=== PATIENT | male | born 1980 | race Caucasian/White ===

== ENCOUNTER 2021-01-05 14:44 | Emergency (ER) | payer OTHER, SELFPAY ==
--- NOTE | ~2021-01-05 | XR_ITS ---
EXAMINATION:XR ankle RT min 3V, XR foot RT min 3V VIEWS ACQUIRED: Frontal lateral and oblique right foot, frontal and lateral ankle. CLINICAL INFORMATION: Reason for Exam PAIN/SWELLING AFTER TWISTING COMPARISON: None available at the time of this dictation. FINDINGS: There is mildly displaced fracture of the medial malleolus, the fracture is horizontal suggesting an avulsion fracture. There are radiolucencies of the head of the second, third fourth and fifth metatarsal raises concern for possible inflammatory including possible rheumatoid arthritis. There is hallux valgus and developing bunion. No significant calcaneal spurs. XR/XR ankle RT min 3V IMPRESSION: 1. Avulsion fracture medial malleolus. 2. Hallux valgus, developing bunion. 3. There are marginal erosions of the head of the second through fifth metatarsal raise concern for possible underlying inflammatory arthritis including rheumatoid. Please correlate clinically.
--- NOTE | ~2021-01-05 | XR_ITS ---
EXAMINATION:XR ankle RT min 3V, XR foot RT min 3V VIEWS ACQUIRED: Frontal lateral and oblique right foot, frontal and lateral ankle. CLINICAL INFORMATION: Reason for Exam PAIN/SWELLING AFTER TWISTING COMPARISON: None available at the time of this dictation. FINDINGS: There is mildly displaced fracture of the medial malleolus, the fracture is horizontal suggesting an avulsion fracture. There are radiolucencies of the head of the second, third fourth and fifth metatarsal raises concern for possible inflammatory including possible rheumatoid arthritis. There is hallux valgus and developing bunion. No significant calcaneal spurs. XR/XR foot RT min 3V IMPRESSION: 1. Avulsion fracture medial malleolus. 2. Hallux valgus, developing bunion. 3. There are marginal erosions of the head of the second through fifth metatarsal raise concern for possible underlying inflammatory arthritis including rheumatoid. Please correlate clinically.
[2021-01-05 14:50] VITALS: BP 181/116; PULSE 113; RESP 18; TEMP 36.5; O2SAT 99; BMI 34.0
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
== END 2021-01-05 15:56 | disposition home or self-care (01) ==
PROVIDERS: Emergency Provider Emergency Medicine
DX: S82.51XA Displaced fracture of medial malleolus of right tibia, initial encounter for closed fracture (principal); V86.79XA Person on outside of other special all-terrain or other off-road motor vehicles injured in nontraffic accident, initial encounter; I10 Essential (primary) hypertension; Y93.89 Activity, other specified; Y92.39 Other specified sports and athletic area as the place of occurrence of the external cause; Y99.0 Civilian activity done for income or pay
CPT/HCPCS: 73610; 73630; 99283

== ENCOUNTER → 2021-01-09 13:20 | Outpatient (BNVA) | payer OTHER, SELFPAY | PROVIDERS: Visit Provider Physician Assistant ==

== ENCOUNTER 2023-03-06 08:11 | Inpatient (IN) | payer OTHER, SELFPAY ==
[2023-03-06] VITALS (10 sets, daily range): BP systolic 83–113; BP diastolic 42–60; PULSE 91–117; RESP 16–24; TEMP 36.9–37.7; O2SAT 97–100; BMI 36.2; BMI 32.4
--- NOTE | ~2023-03-06 | CT_ITS ---
EXAMINATION: CT ABDOMEN AND PELVIS WITHOUT CONTRAST CLINICAL INFORMATION: Acute renal failure and diarrhea. COMPARISON: None available. TECHNIQUE: Multidetector volumetric imaging was performed from the superior aspect of the liver through the pubic symphysis. Sagittal and coronal reformatted images were obtained on the technologist's workstation. This CT examination was performed using dose optimization techniques as appropriate, variously including the following: *Automated exposure control *Adjustment of mA and/or kV according to patient size (this includes techniques or standardized protocols for targeted exams where dose is matched to indication/reason for exam; i.e. extremities or head) *Use of iterative reconstruction technique DLP: 712 mGy-cm FINDINGS: LUNG BASES: Normal. No pulmonary consolidation or pleural effusion. LIVER: Hepatomegaly. Liver parenchyma has heterogeneous attenuation. This appears to be due to patchy, nonuniform distribution of steatosis in the right and left lobes. No noncontrast imaging evidence of liver mass or abscess. GALLBLADDER AND BILIARY TREE: Gallbladder is without radiopaque stones, wall thickening or pericholecystic fluid. No dilated bile ducts. PANCREAS: Normal. No edema, pancreatic ductal dilatation or mass. SPLEEN: Normal. ADRENAL GLANDS: Normal. KIDNEYS AND URETERS: Kidneys are normal in size. No hydronephrosis, perinephric edema or perinephric collection. There is a small, approximately 0.2 cm calyceal stone in the anterior lower pole of the right kidney. There are calyceal stones in the mid and lower pole of the left kidney, each measuring up to approximately 0.8 cm maximum dimension. The ureters are unremarkable. No hydroureteronephrosis. BLADDER: Normal. No calculi or wall thickening. BOWEL AND PERITONEUM: Evaluation of the gastrointestinal tract is somewhat limited on this noncontrast examination. Fluid distended loops of small bowel in the left abdomen measure up to 3.2 cm diameter. The involved small bowel appears to have mild wall thickening and there is mild haziness of adjacent mesenteric fat. A trace amount of free fluid is present within the pelvis. No pneumoperitoneum or abscess. There is no well-defined focal transition point. Distal small bowel is underdistended. The appendix is normal. The observation of submucosal fat deposition in the wall of the colon and rectum is nonspecific. This can represent normal variation, particular in patient's of a more obese body habitus, but also can be sequela of remote bowel inflammation. There are no acute inflammatory changes along the colon. Multiple diverticula of the right colon without evidence of diverticulitis. ABDOMINAL WALL: Unremarkable. VASCULATURE: Mild atherosclerotic calcification of the abdominal aorta without aneurysm. LYMPH NODES: A mildly enlarged periportal region lymph node is 1.1 cm short axis dimension (image 29, series 3). No retroperitoneal, iliac or inguinal lymphadenopathy. PELVIC VISCERA: Prostate gland is unremarkable. MUSCULOSKELETAL: No acute or suspicious osseous abnormality. Mild disc degenerative change at L1-L2 with small Schmorl's node of the L2 superior endplate. CT/CT abdomen pelvis wo IV con IMPRESSION: * There is hepatomegaly and heterogeneous appearance of hepatic steatosis. * Bilateral renal stones are present. No ureteral calculi or hydroureteronephrosis. * Mild fluid distention of small bowel loops in the left abdomen with apparent mild wall thickening and mild haziness of adjacent mesenteric fat. These findings are suspected to be from an enteritis rather than a mild partial small bowel obstruction. * Colonic diverticula without diverticulitis.
--- NOTE | ~2023-03-06 | XR_ITS ---
EXAMINATION: XR CHEST CLINICAL INFORMATION: Leukocytosis COMPARISON: None available. TECHNIQUE: AP portable view of the chest was obtained. FINDINGS: No significant abnormality is noted involving the heart, lungs, mediastinum, bony thorax or soft tissues. XR/XR chest 1V IMPRESSION: No acute disease.
--- NOTE | 2023-03-06 08:38 | ED_ITS ---
HPI - General Adult General Chief complaint: General Medical Stated complaint: ? uti Time Seen by Provider: 03/06/23 08:19 Source: patient Mode of arrival: ambulatory Limitations: no limitations History of Present Illness HPI narrative: 43 year old male with past medical history significant for hypertension control led with medication presents today with diarrhea for one week. Patient reports diarrhea that began one week ago, ~12 episodes of small amounts of diarrhea per day. Additionally he reports diffuse myalgias and mild abd cramping. He states that he's had the urge to urinate however has not urinated in over 24 hours. 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 Denies fevers, chills, nausea, vomiting, chest pain, SOB, dysuria, constipation, or hematochezia. Patient's hypertension is currently managed with amlodipine 10mg and lisinopril 10mg. Patient reports taking his medications prior to arriving in the ED. MD complaint: diarrhea, decreased UOP Onset (ago): day(s) (7) Location: abdomen Radiation: non-radiation Severity: mild Quality: other (cramping) Pain Consistency: constant Relieving factors: none Exacerbating factors: none Treatments prior to arrival: none Related Data Home Medications Medication Instructions Recorded Confirmed amlodipine 10 mg tablet 10 mg PO DAILY 03/06/23 03/06/23 lisinopril 10 mg tablet 10 mg PO DAILY 03/06/23 03/06/23 Allergies Allergy/AdvReac Type Severity Reaction Status Date / Time No Known Allergies Allergy Verified 01/09/21 13:32 Review of Systems Review of Systems: Yes all other systems are reviewed and are negative [facility] Past Medical History Medical History Anxiety Family History Family History (Updated 01/09/21 @ 13:33 by JAMES Burroughs) Mother No problems noted. Father No problems noted. 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 Appearance: Alert. Oriented X3. No acute distress. Head: normocephalic, atraumatic. Eyes: Pupils equal, round and reactive to light. ENT: Pharynx normal. No tonsillar swelling or exudate. Neck: Normal inspection. Neck supple. CVS: tachycardic, regular rhythm, hr 110 Pulses normal. Respiratory: No respiratory distress. Breath sounds normal. Abdomen: Obese. Soft and nontender. +BS x4 Skin: Skin warm and dry. Normal skin color. Poor skin turgor. No rashes. Extremities: No lower extremity edema. No joint swelling. Neuro/psych: Oriented X 3. No motor deficit. No sensory deficit. CN II-XII intact. Normal speech and cognition. Course Reevaluation(s) Reevaluation #1: sepsis alert called due to tachycardia, low BP and leukocytosis. his lactic acid is normal. he took his BP meds (lisinopril and norvasc) this morning and clinically appears dehydrated which is more likely driving his symptoms than true sepsis. will hold off on empiric antibiotics for now while awaiting UA and GI panel (although diarrhea has improved.) Time: 09:25 Reevaluation #2: received critical result of creatinine 10.41. and mag++ 1.0 BUN 70 and K 5.1. BP slowly improving with fluids, 2nd liter infusing. no urine in his bladder yet etiology of his hypotension is medication induced from his antihypertensive meds along with dehydration and renal failure. NOT SEPSIS Time: 10:16 Reevaluation #3: BP improved to 100s. he was able to urinate 120cc. stool sample sent. 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 to see this afternoon - may need HD line placed today (difficult logistically over the weekend) will admit for further management Time: 13:24 Additional Reevaluation(s): fena 0.4% c/w prerenal etiology of AYSE Consultations Consultation #1: nephrology - dr acosta Medications Administered Generic Name Dose Route Start Last Admin Trade Name Freq PRN Reason Stop Dose Admin Sodium Bicarbonate 150 meq/ 1,000 mls @ 150 mls/hr 03/06/23 12:15 03/06/23 13:02 Dextrose IV 150 mls/hr .Q6H40M ROSALINA Administration Sodium Chloride 1,000 mls @ 999 mls/hr 03/06/23 13:00 03/06/23 13:03 Ns IVCONT 03/06/23 14:00 999 mls/hr .Q1H1M ROSALINA Administration Discontinued Medications Generic Name Dose Route Start Last Admin Trade Name Freq PRN Reason Stop Dose Admin Sodium Chloride 1,000 mls @ 999 mls/hr 03/06/23 08:45 03/06/23 11:31 Ns IVCONT 03/06/23 09:45 Infused .Q1H1M ROSALINA Infusion Sodium Chloride 1,000 mls @ 999 mls/hr 03/06/23 09:30 03/06/23 11:31 Ns IVCONT 03/06/23 10:30 Infused .Q1H1M ROSALINA Infusion Magnesium Sulfate 2 gm in 50 mls @ 25 mls/hr 03/06/23 10:06 03/06/23 11:38 Magnesium Sulfate/H2o IV 03/06/23 12:05 Infused ONCE ONE Infusion Sodium Chloride 1,000 mls @ 999 mls/hr 03/06/23 11:15 03/06/23 12:52 Ns IVCONT 03/06/23 12:15 Infused .Q1H1M ROSALINA Infusion Medical Decision Making Medical Decision Making MDM Narrative: 43 year old male with past medical history significant for hypertension controlled with medication presents today with diarrhea x1 week an anuria x1 day. Hypertension controlled on amlodipine 10mg and lisinopril 10mg, taken prior to arriving in ED. Vital signs reviewed and significant for hypotension and tachycardia. IVF started. Labs showed severe acute renal failure with metabolic acidosis and uremia. no known hx CKD. no UOP after 2L NS. given 3rd liter and was able to urinate 120cc. nephrology consulted - recommending bicarb infusion and possible HD catheter placement. no obstructive uropathy seen on CT or evidence of medical renal disease. urine lytes pending. likely multifactorial renal faliure with dehydration/pre-renal, ELVIA inhibitor, and ATN w/ low BP. Labs slightly improved after 3rd liter. BP improved. UA with contaminated sample, many squamous cells. doubt UTI. rocephin x1 ordered while awaiting urine culture. planning on admission. Differential Diagnosis Differential Diagnoses: The differential diagnosis associated with the presentation includes Consider bacterial or viral gastroenteritis, dehydration, cidff colitis, UTI, AYSE, sepsis Admission/Observation Consideration of admission/observation: Escalation of care including admission/observation considered acute renal failure requiring admission to the hospital Consult Healthcare Provider Management of the patient was discussed with: Apparel Manufacture Instructor Dr. Acosta from nephrology Lab Data MDM Lab Attestation statement: I reviewed the patient's lab results. leukocytosis and significant renal failure with anion gap metabolic acidosis w/ uremia 03/06/23 08:49 03/06/23 08:49 Labs: Lab Results 03/06/23 03/06/23 03/06/23 Range/Units 08:49 08:49 08:49 WBC 14.4 H (4.8-10.8) X10*3/uL RBC 3.28 L (4.60-5.80) X10*6/uL Hgb 11.2 L (14.0-18.0) g/dl Hct 32.9 L (42.0-52.0) % MCV 100.3 H (80.0-98.0) fL MCH 34.1 H (27.0-33.0) pg MCHC 34.0 (31.0-36.0) g/dl RDW 13.8 (11.0-16.0) % Plt Count 269 (160-400) X10*3/uL MPV 9.7 (9.4-12.4) fL Immature Gran % (Auto) 0.7 H (0.0-0.4) % Neut % (Auto) 78.1 H (45-73) % Lymph % (Auto) 8.9 L (20-40) % [place] % (Auto) 11.1 H (2-11) % Eos % (Auto) 0.7 (0-4) % Baso % (Auto) 0.5 (0-2) % Lymph # (Auto) 1.3 (1.2-4.9) X10*3/uL [place] # (Auto) 1.6 H (0.1-1.2) X10*3/uL Eos # (Auto) 0.1 (0.0-0.4) X10*3/uL Baso # (Auto) 0.1 (0.0-0.2) X10*3/uL Abs Immat Gran (auto) 0.10 H (0.00-0.03) X10*3/uL Absolute Neuts (auto) 11.3 H (2.0-8.3) x10*3/uL Absolute Nucleated RBC 0.000 (0.0-0.012) X10*3/uL Nucleated RBC % (auto) 0.0 (0.0-0.2) /100WBC Smear Tech's Comments VERIFIED Sodium 131 L (135-145) mmol/L Potassium 5.1 (3.3-5.1) mmol/L Chloride 97 (96-108) mmol/L Carbon Dioxide 14 L (22-29) mmol/L Anion Gap 25 H (12-20) BUN 70 H (9-16) mg/dL Creatinine 10.41 H* (0.5-1.4) mg/dL Estim Creat Clear Calc 11.1 Estimated GFR 5 Random Glucose 120 H (60-115) mg/dL Lactic Acid 1.7 (0.5-2.0) mmol/L Calcium 8.2 L (8.4-10.2) mg/dL Phosphorus 9.9 H (2.7-4.5) mg/dL Magnesium 1.0 L* (1.6-2.6) mg/dL Total Bilirubin 0.7 (0.0-1.0) mg/dL Direct Bilirubin 0.2 (0.0-0.5) mg/dL AST 62 H (5-37) U/L ALT 23 (0-40) U/L Alkaline Phosphatase 122 H (39-117) U/L Total Creatine Kinase 234 H (38-174) U/L Total Protein 8.4 H (6.5-8.0) g/dL Albumin 5.0 (3.5-5.0) g/dL Urine Color Urine Appearance Urine pH (5.0-9.0) Ur Specific [place] (1.005-1.025) Urine Protein (Neg-Trace) mg/dL Urine Glucose (UA) (Negative) mg/dL Urine Ketones (Negative) mg/dL Urine Blood (Negative) Urine Nitrite (Negative) Ur Leukocyte Esterase (Negative) Urine RBC (0-2) /HPF Urine WBC (0-5) /HPF Ur Squamous Epith Cells (0-2) /HPF Calcium Oxalate Crystal Urine Bacteria (None Seen) Hyaline Casts (0-2) /LPF Granular Casts Ur Random Sodium mmol/L Urine Creatinine mg/dL 03/06/23 03/06/23 03/06/23 Range/Units 12:13 13:07 13:08 WBC (4.8-10.8) X10*3/uL RBC (4.60-5.80) X10*6/uL Hgb (14.0-18.0) g/dl Hct (42.0-52.0) % MCV (80.0-98.0) fL MCH (27.0-33.0) pg MCHC (31.0-36.0) g/dl RDW (11.0-16.0) % Plt Count (160-400) X10*3/uL MPV (9.4-12.4) fL Immature Gran % (Auto) (0.0-0.4) % Neut % (Auto) (45-73) % Lymph % (Auto) (20-40) % [place] % (Auto) (2-11) % Eos % (Auto) (0-4) % Baso % (Auto) (0-2) % Lymph # (Auto) (1.2-4.9) X10*3/uL [place] # (Auto) (0.1-1.2) X10*3/uL Eos # (Auto) (0.0-0.4) X10*3/uL Baso # (Auto) (0.0-0.2) X10*3/uL Abs Immat Gran (auto) (0.00-0.03) X10*3/uL Absolute Neuts (auto) (2.0-8.3) x10*3/uL Absolute Nucleated RBC (0.0-0.012) X10*3/uL Nucleated RBC % (auto) (0.0-0.2) /100WBC Smear Tech's Comments Sodium 132 L (135-145) mmol/L Potassium 4.8 (3.3-5.1) mmol/L Chloride 104 (96-108) mmol/L Carbon Dioxide 13 L (22-29) mmol/L Anion Gap 20 (12-20) BUN 70 H (9-16) mg/dL Creatinine 9.27 H* (0.5-1.4) mg/dL Estim Creat Clear Calc 12.4 Estimated GFR 6 Random Glucose 94 (60-115) mg/dL Lactic Acid (0.5-2.0) mmol/L Calcium 7.1 L D (8.4-10.2) mg/dL Phosphorus 8.8 H (2.7-4.5) mg/dL Magnesium 1.3 L* (1.6-2.6) mg/dL Total Bilirubin (0.0-1.0) mg/dL Direct Bilirubin (0.0-0.5) mg/dL AST (5-37) U/L ALT (0-40) U/L Alkaline Phosphatase (39-117) U/L Total Creatine Kinase (38-174) U/L Total Protein (6.5-8.0) g/dL Albumin (3.5-5.0) g/dL Urine Color Yellow Urine Appearance Cloudy Urine pH 5.5 (5.0-9.0) Ur Specific [place] 1.015 (1.005-1.025) Urine Protein 100 (2+) H (Neg-Trace) mg/dL Urine Glucose (UA) Negative (Negative) mg/dL Urine Ketones Trace (Negative) mg/dL Urine Blood Moderate (2+) H (Negative) Urine Nitrite Negative (Negative) Ur Leukocyte Esterase Moderate (2+) H (Negative) Urine RBC 0-2 (0-2) /HPF Urine WBC 21-50 H (0-5) /HPF Ur Squamous Epith Cells 11-20 (0-2) /HPF Calcium Oxalate Crystal Present Urine Bacteria None Seen (None Seen) Hyaline Casts >20 (0-2) /LPF Granular Casts Present Ur Random Sodium 24.0 mmol/L Urine Creatinine 445.74 mg/dL Independent Interpretation I performed an independent interpretation of an: CT Scan Interpretation: no hydronephrosis, no kidney stones , agree w/ radiology read Radiology Impression Discussion of test interpretation with radiology: I have reviewed the radiologist's reading. Radiologist Impression: CT/CT abdomen pelvis wo IV con IMPRESSION: *? There is hepatomegaly and heterogeneous appearance of hepatic steatosis. *? Bilateral renal stones are present. No ureteral calculi or hydroureteronephrosis. *? Mild fluid distention of small bowel loops in the left abdomen with apparent mild wall thickening and mild haziness of adjacent mesenteric fat. These findings are suspected to be from an enteritis rather than a mild partial small bowel obstruction. *? Colonic diverticula without diverticulitis. Independent Historian Clinical information obtained from an independent historian. History obtained from or confirmed by: Spouse Prescription Management I considered prescription management with: Antibiotic Chronic Conditions Patient?s care impacted by: Hypertension Critical Care Time Critical Care Time Critical Care Time: Yes Total Critical Care Time: 46 Attestation: I have personally provided critical care time exclusive of time spent on separately billable procedures. Time includes review of lab data, radiology results, discussion with consultants, and monitoring for potential decompen sation. Intervention performed as documented. Discharge Plan Discharge Clinical Impression: Acute renal failure, Enteritis, Metabolic acidosis Patient Disposition: Admitted As Inpatient
[2023-03-06] MEDS: 0.9 % Sodium Chloride 1,000 ML 999 ML IVCONT ×4 (08:57→13:03)
[2023-03-06 09:00] LABS: Basophils Absolute Auto 0.1 X10*3/uL (0.0-0.2); Basophils Percent Auto 0.5 % (0-2); Eosinophils Absolute Auto 0.1 X10*3/uL (0.0-0.4); Eosinophils Percent Auto 0.7 % (0-4); Hematocrit 32.9 % (42.0-52.0); Hemoglobin 11.2 g/dl (14.0-18.0); Imm Gran Pct Auto 0.7 % (0.0-0.4); Lymphocytes Absolute Auto 1.3 X10*3/uL (1.2-4.9); Lymphocytes Percent Auto 8.9 % (20-40); MANUAL DIFF FLAG SCAN; Mean Corpuscular Hemoglobin 34.1 pg (27.0-33.0); Mean Corpuscular Volume 100.3 fL (80.0-98.0); Mean Platelet Volume 9.7 fL (9.4-12.4); Monocytes Absolute Auto 1.6 X10*3/uL (0.1-1.2); Monocytes Percent Auto 11.1 % (2-11); Neutrophils Absolute Auto 11.3 x10*3/uL (2.0-8.3); Neutrophils Percent Auto 78.1 % (45-73); Platelet Count 269 X10*3/uL (160-400); Red Blood Count 3.28 X10*6/uL (4.60-5.80); Red Cell Distribution Width 13.8 % (11.0-16.0); SCAN SMEAR FLAG 1; White Blood Count 14.4 X10*3/uL (4.8-10.8)
[2023-03-06 09:10] LABS: Lactic Acid 1.7 mmol/L (0.5-2.0)
[2023-03-06 09:37] LABS: SLIDE REVIEW VERIFIED
[2023-03-06 10:08] LABS: Alanine Aminotransferase 23 U/L (0-40); Alkaline Phosphatase 122 U/L (39-117); Anion Gap 25 (12-20); Aspartate Amino Transferase 62 U/L (5-37); Bilirubin Direct 0.2 mg/dL (0.0-0.5); Bilirubin Total 0.7 mg/dL (0.0-1.0); Blood Urea Nitrogen 70 mg/dL (9-16); Calcium 8.2 mg/dL (8.4-10.2); Carbon Dioxide 14 mmol/L (22-29); Chloride 97 mmol/L (96-108); Creatinine Clr Calc Pharmacy 11.1; Estimated Glomerular Filt Rate 5; Glucose Random 120 mg/dL (60-115); Potassium 5.1 mmol/L (3.3-5.1); Sodium 131 mmol/L (135-145); Total Protein 8.4 g/dL (6.5-8.0)
[2023-03-06] MEDS: Magnesium Sulfate/H2O 2 GM/50 ML PIGGYBACK IV ×2 (10:25→14:59)
--- NOTE | 2023-03-06 10:25 | PHA.MEDREC ---
Pharmacy Consult ? Medication Reconciliation Pharmacy has completed the medication reconciliation.
[2023-03-06 11:44] LABS: Phosphorus 9.9 mg/dL (2.7-4.5)
--- NOTE | 2023-03-06 12:38 | PC.NURSE ---
Patient feeling like he might be able to pee and have a bowel movement, given urinal and a hat to capture any BM and sent to the bathroom.
[2023-03-06 12:54] LABS: Anion Gap 20 (12-20); Blood Urea Nitrogen 70 mg/dL (9-16); Calcium 7.1 mg/dL (8.4-10.2); Carbon Dioxide 13 mmol/L (22-29); Chloride 104 mmol/L (96-108); Creatinine Clr Calc Pharmacy 12.4; Estimated Glomerular Filt Rate 6; Glucose Random 94 mg/dL (60-115); Magnesium 1.3 mg/dL (1.6-2.6); Phosphorus 8.8 mg/dL (2.7-4.5); Potassium 4.8 mmol/L (3.3-5.1); Sodium 132 mmol/L (135-145)
[2023-03-06] MEDS: Sodium Bicarbonate 8.4% 150 MEQ in Dextrose 5 % 850 ML IV ×2 (13:02→18:16)
[2023-03-06 13:16] LABS: Appearance Urine Cloudy; Color Urine Yellow; Glucose Urine UA Negative (Negative); Leukocyte Esterase Urine Moderate (2+) (Negative); Nitrite Urine Negative (Negative); PH 5.5 (5.0-9.0); Specific Gravity - Urine 1.015 (1.005-1.025); UMIC TRIGGER UACC YES; Urine Blood Moderate (2+) (Negative); Urine Ketones Trace mg/dL (Negative); Urine Protein 100 (2+) mg/dL (Neg-Trace)
[2023-03-06 13:37] LABS: Bacteria Urine None Seen (None Seen); Calcium Oxalate Crystals Urine Present; Granular Casts Urine Present; Hyaline Casts Urine >20 /LPF (0-2); RBC Urine 0-2 /HPF (0-2); UACC Culture Trigger YES; WBC Urine 21-50 /HPF (0-5)
--- NOTE | 2023-03-06 13:57 | PM.IMHP ---
History of Present Illness Date of Service: 03/06/23 Attending physician on admission: Yoly Bustamante Chief Complaint: Diarrhea x1 week Pt is a 43-year-old male with a PMH significant for HTN?who presents to the ED with diarhea x1 week. Pt states that he may have eaten a suspicious chicken sandwich but is uncertain of any precipitating factor. Denies sick contacts, recent travel. He reports 12+episodes of non-bloody diarrhea initially which have gradually improved to 5-6 episodes daily. Tried to keep up with fluids by drinking water and Gatorade, but pt reports stopped producing urine a day and a half ago. Also notes feeling gassy with abdominal cramps and diffuse myalgias, but denies fever, chills, nausea, vomiting. Pt notes he continued to take his antihypertensives, including lisinopril. In the ED patient was afebrile but tachycardic up to 117 and tachypneic up to 24, and hypotensive as low as 83/53. Labs were significant for leukocytosis of 14.4, H&H 11.2/32.9, sodium of 131, bicarb of 14, BUN of 70, creatinine of 10.41, phosphorus a 90 knee series 1.0, AST of 62 alk-phos 122, creatinine kinase 234. VBG showed metabolic acidosis: Ph 7.25 with bicarb of 12. UA negative for UTI. CXR showed no acute disease. CT of abdomen and pelvis showed hepatomegaly and likely hepatic steatosis, bilateral renal stones with no hydroureteronephrosis, and findings likely of an enteritis rather than mild partial small-bowel obstruction. Pt was treated with 4 L of NS, magnesium IV, ceftriaxone, and started on a bicarb drip. Pt will be admitted to the hospital for acute renal failure secondary to dehydration d/t GI losses from possible viral infection. Review of Systems Review of Systems: Diarrhea times week Abdominal cramping Myalgias Denies fever, chills, nausea, vomiting No chest pain/pressure, palpitations Denies shortness of breath Yes all other systems are reviewed and are negative [facility] Medical History Anxiety Family History Mother No problems noted. Father No problems noted. 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 [employer] Allergies Allergy/AdvReac Type Severity Reaction Status Date / Time No Known Allergies Allergy Verified 01/09/21 13:32 Active Medications: Current Medications Sodium Bicarbonate 150 meq/ (Dextrose) 1,000 mls @ 150 mls/hr IV .Q6H40M [facility] Last Admin: 03/06/23 13:02 Dose: 150 mls/hr Sodium Chloride (Ns) 1,000 mls @ 999 mls/hr IVCONT .Q1H1M [facility] Stop: 03/06/23 14:00 Last Admin: 03/06/23 13:03 Dose: 999 mls/hr Ceftriaxone Sodium 1 gm/ (Sodium Chloride) 50 mls @ 100 mls/hr IV ONCE ONE Stop: 03/06/23 13:59 Pharmacy Consult (Consult Rx Perform Med Rec) 1 each MISCELLANE ONCE PRN PRN Reason: Consult order Home Medications Medication Instructions Recorded Confirmed Last Taken Type amlodipine 10 mg tablet 10 mg PO DAILY 03/06/23 03/06/23 03/06/23 History lisinopril 10 mg tablet 10 mg PO DAILY 03/06/23 03/06/23 03/06/23 History Physical Exam Vital Signs and Narrative: Vital Signs: Last Vital Signs Temp 98.5 F 03/06/23 09:01 Pulse 96 03/06/23 13:50 Resp 19 03/06/23 13:50 BP 93/45 L 03/06/23 13:50 Pulse Ox 100 03/06/23 13:50 O2 Del Method Room Air 03/06/23 13:50 BMI result Body Mass Index 36.2 Constitutional: Alert, in no acute distress. Mental Status: Oriented to person, place and time. Eyes: Pupils are equal, round, and reactive to light. Ear, Nose, and Throat: Oropharynx clear, mucous membranes moist. Ears and nose without deformities. Trachea midline. Respiratory: Clear to auscultation bilaterally. No wheezing, rales, or rhonchi. Cardiovascular: S1, S2 regular. No murmurs, rubs, or gallops. Gastrointestinal: Abdomen soft, non-tender, non-distended. Normal bowel sounds. Neurologic: Cranial nerves II-XII are grossly intact bilaterally. No focal neurological deficits. Moves all extremities spontaneously. Skin: No rashes or lesions noted. Musculoskeletal: No cyanosis or clubbing. Extremities: No edema. Psychiatric: Normal mood and affect. Results Labs 03/06/23 08:49 03/06/23 12:13 Labs: Laboratory Results - last 24 hr 03/06/23 03/06/23 03/06/23 08:49 08:49 08:49 MCV 100.3 H MCH 34.1 H MCHC 34.0 RDW 13.8 Plt Count 269 MPV 9.7 Immature Gran % (Auto) 0.7 H Neut % (Auto) 78.1 H Lymph % (Auto) 8.9 L [place] % (Auto) 11.1 H Eos % (Auto) 0.7 Baso % (Auto) 0.5 Lymph # (Auto) 1.3 [place] # (Auto) 1.6 H Eos # (Auto) 0.1 Baso # (Auto) 0.1 Abs Immat Gran (auto) 0.10 H Absolute Neuts (auto) 11.3 H Absolute Nucleated RBC 0.000 Nucleated RBC % (auto) 0.0 Smear Tech's Comments VERIFIED Anion Gap 25 H Estim Creat Clear Calc 11.1 Estimated GFR 5 Random Glucose 120 H Lactic Acid 1.7 Calcium 8.2 L Phosphorus 9.9 H Magnesium 1.0 L* Total Bilirubin 0.7 Direct Bilirubin 0.2 AST 62 H ALT 23 Alkaline Phosphatase 122 H Total Creatine Kinase 234 H Total Protein 8.4 H Albumin 5.0 Urine Color Urine Appearance Urine pH Ur Specific [place] Urine Protein Urine Glucose (UA) Urine Ketones Urine Blood Urine Nitrite Ur Leukocyte Esterase Urine RBC Urine WBC Ur Squamous Epith Cells Calcium Oxalate Crystal Urine Bacteria Hyaline Casts Granular Casts Ur Random Sodium Urine Creatinine 03/06/23 03/06/23 03/06/23 12:13 13:07 13:08 MCV MCH MCHC RDW Plt Count MPV Immature Gran % (Auto) Neut % (Auto) Lymph % (Auto) [place] % (Auto) Eos % (Auto) Baso % (Auto) Lymph # (Auto) [place] # (Auto) Eos # (Auto) Baso # (Auto) Abs Immat Gran (auto) Absolute Neuts (auto) Absolute Nucleated RBC Nucleated RBC % (auto) Smear Tech's Comments Anion Gap 20 Estim Creat Clear Calc 12.4 Estimated GFR 6 Random Glucose 94 Lactic Acid Calcium 7.1 L D Phosphorus 8.8 H Magnesium 1.3 L* Total Bilirubin Direct Bilirubin AST ALT Alkaline Phosphatase Total Creatine Kinase Total Protein Albumin Urine Color Yellow Urine Appearance Cloudy Urine pH 5.5 Ur Specific [place] 1.015 Urine Protein 100 (2+) H Urine Glucose (UA) Negative Urine Ketones Trace Urine Blood Moderate (2+) H Urine Nitrite Negative Ur Leukocyte Esterase Moderate (2+) H Urine RBC 0-2 Urine WBC 21-50 H Ur Squamous Epith Cells 11-20 Calcium Oxalate Crystal Present Urine Bacteria None Seen Hyaline Casts >20 Granular Casts Present Ur Random Sodium 24.0 Urine Creatinine 445.74 Imaging Radiologist's Impressions: Impressions Chest X-Ray 03/06/23 10:59 IMPRESSION: No acute disease. Abdomen/Pelvis CT 03/06/23 11:20 IMPRESSION: * There is hepatomegaly and heterogeneous appearance of hepatic steatosis. * Bilateral renal stones are present. No ureteral calculi or hydroureteronephrosis. * Mild fluid distention of small bowel loops in the left abdomen with apparent mild wall thickening and mild haziness of adjacent mesenteric fat. These findings are suspected to be from an enteritis rather than a mild partial small bowel obstruction. * Colonic diverticula without diverticulitis. Assessment and Plan (1) Acute renal failure: Status: Acute (2) Enteritis: Status: Acute (3) Metabolic acidosis: Status: Acute Plan Pt is a 43-year-old male with a PMH significant for HTN?who presents to the ED with diarhea x1 week and anuria x one and a half days. Patient's labs were significant for creatinine of 10.41 and multiple electrolyte abnormalities. Pt will be admitted to the hospital for acute renal failure secondary to dehydration d/t GI losses from possible viral infection. Acute renal failure with metabolic acidosis Likely multifactorial: Dehydration d/t GI losses while continuing ELVIA-I, ATN Pt had anuria for one and a half days before presentation Pt has received 4L IVF in ED, will be placed on maintenance fluids Continue bicarb drip Hold antihypertensives, ELVIA-I Nephrology consult Monitor on telemetry Hypomagnesmia Patient's magnesium 1.0 time of presentation Patient received 2 mg IV magnesium in the ED Will receive additional 2 mg IV magnesium Follow magnesium tomorrow Diarrhea Patient has been experiencing significant diarrhea x1 week, possibly from contaminated chicken sandwich CT of abdomen and pelvis show likely enteritis, viral versus bacterial infection Patient's tachycardia, tachypnea due to dehydration not sepsis Patient received ceftriaxone in the ED, continue ceftriaxone for now, started 03/06/2023 Continue IVF C diff negative Check GI panel Follow cultures HTN Hold antihypertensives for now Full Code Attending:?Dr. Bustamante DVT Prophylaxis: Lovenox Pt will require a hospitalization of at least two nights for treatment of?acute kidney failure in the setting of dehydration secondary to GI losses from likely viral gastroenteritis. Time Spent With Patient Time: Total time managing care of this patient today ____ minutes. Quality Stroke Does the patient have a stroke diagnosis?: No VTE Prior VTE?: No VTE Risk Level:: Medical - moderate - high VTE Device Contraindication: Treatment Not Indicated VTE Drug Contraindication: N/A - Med Ordered
[2023-03-06] MEDS: cefTRIAXone sodium 1 GM in 0.9 % Sodium Chloride 50 ML IV (14:08)
[2023-03-06 14:12] LABS: VBG HCO3 12 mmol/L (22-26); VBG pCO2 27 mmHg; VBG pH 7.25 (7.32-7.43); VBG pO2 34 mmHg
[2023-03-06 14:12] LABS: Venous Blood Gas Refer to POC result
[2023-03-06 14:42] LABS: CDiff Gene PCR NEGATIVE (Negative)
[2023-03-06 14:50] LABS: Anion Gap 17 (12-20); Blood Urea Nitrogen 67 mg/dL (9-16); Calcium 6.6 mg/dL (8.4-10.2); Carbon Dioxide 13 mmol/L (22-29); Chloride 106 mmol/L (96-108); Creatinine Clr Calc Pharmacy 13.5; Estimated Glomerular Filt Rate 7; Glucose Random 98 mg/dL (60-115); Magnesium 1.2 mg/dL (1.6-2.6); Potassium 4.3 mmol/L (3.3-5.1); Sodium 132 mmol/L (135-145)
[2023-03-06 15:27] LABS: Adenovirus F 40/41 Not Detected (Not Detect.); Astrovirus Not Detected (Not Detect.); Campylobacter Not Detected (Not Detect.); Cryptosporidium Not Detected (Not Detect.); Cyclospora cayetanensis Not Detected (Not Detect.); E. coli EAEC Not Detected (Not Detect.); E. coli EPEC Not Detected (Not Detect.); E. coli ETEC Not Detected (Not Detect.); E. coli STEC Not Detected (Not Detect.); Entamoeba histolytica Not Detected (Not Detect.); Giardia lamblia Not Detected (Not Detect.); Norovirus GI/GII Not Detected (Not Detect.); Plesiomonas shigelloides Not Detected (Not Detect.); Rotavirus A Not Detected (Not Detect.); Salmonella Not Detected (Not Detect.); Sapovirus Not Detected (Not Detect.); Shigella sp./EIEC Not Detected (Not Detect.); Vibrio Not Detected (Not Detect.); Vibrio Cholerae Not Detected (Not Detect.); Yersinia enterocolitica Not Detected (Not Detect.)
[2023-03-06] MEDS: Heparin Sodium,Porcine 5,000 UNIT/ML VIAL 5000 UNIT SUBCUT (16:03)
[2023-03-06] MEDS: Acetaminophen 325 MG TABLET 650 MG PO (17:32)
[2023-03-06 19:09] LABS: Anion Gap 19 (12-20); Blood Urea Nitrogen 66 mg/dL (9-16); Carbon Dioxide 14 mmol/L (22-29); Chloride 105 mmol/L (96-108); Creatinine Clr Calc Pharmacy 14.9; Estimated Glomerular Filt Rate 8; Glucose Random 118 mg/dL (60-115); Potassium 3.6 mmol/L (3.3-5.1); Sodium 134 mmol/L (135-145)
[2023-03-06 19:47] LABS: Osmolality Urine 292 mosm/kg (373-1093)
[2023-03-07 03:17] VITALS: BP 119/60; PULSE 96; RESP 20; TEMP 37.1; O2SAT 97
[2023-03-07] MEDS: Heparin Sodium,Porcine 5,000 UNIT/ML VIAL 5000 UNIT SUBCUT (03:27)
[2023-03-07] MEDS: Sodium Bicarbonate 8.4% 150 MEQ in Dextrose 5 % 850 ML IV (05:23)
[2023-03-07 06:29] LABS: Hematocrit 24.1 % (42.0-52.0); Hemoglobin 8.4 g/dl (14.0-18.0); Mean Corpuscular HGB Conc 34.9 g/dl (31.0-36.0); Mean Corpuscular Hemoglobin 34.7 pg (27.0-33.0); Mean Corpuscular Volume 99.6 fL (80.0-98.0); Mean Platelet Volume 10.1 fL (9.4-12.4); Platelet Count 209 X10*3/uL (160-400); Red Blood Count 2.42 X10*6/uL (4.60-5.80); Red Cell Distribution Width 13.4 % (11.0-16.0); White Blood Count 7.7 X10*3/uL (4.8-10.8)
[2023-03-07 07:15] LABS: Anion Gap 19 (12-20); Blood Urea Nitrogen 59 mg/dL (9-16); Calcium 7.3 mg/dL (8.4-10.2); Carbon Dioxide 15 mmol/L (22-29); Chloride 107 mmol/L (96-108); Creatinine Clr Calc Pharmacy 24.8; Estimated Glomerular Filt Rate 15; Glucose Random 109 mg/dL (60-115); Magnesium 1.5 mg/dL (1.6-2.6); Phosphorus 5.2 mg/dL (2.7-4.5); Potassium 3.6 mmol/L (3.3-5.1); Sodium 137 mmol/L (135-145)
[2023-03-07] MEDS: Magnesium Sulfate/D5W 1 GM/100 ML PIGGYBACK IV (08:30)
[2023-03-07] MEDS: 0.9 % Sodium Chloride Flush 3 ML SYRINGE IVFLUSH (08:31)
[2023-03-07] MEDS: cefTRIAXone sodium 1 GM in 0.9 % Sodium Chloride 50 ML IV (08:31)
--- NOTE | 2023-03-07 09:06 | MHC.CM.PN ---
Lives at home w/; no prev. services or equipment, drives self places. Pt and state they have a living will and intend on bringing it in; should it not address medical proxy, they have agreed to complete a HCP while Pt is admitted. D/C plan is to return home w/ and children via . CM to follow.
[2023-03-07 11:02] LABS: Albumin Level 3.6 g/dL (3.5-5.0); Total Protein 6.1 g/dL (6.5-8.0)
[2023-03-07 11:21] VITALS: BP 107/58; PULSE 100; RESP 20; TEMP 36.8; O2SAT 99
--- NOTE | 2023-03-07 11:46 | P.PNIM_ITS ---
Subjective Subjective Date of Service: 03/07/23 Interval History: laurence ,multiple electerolytic abnormalities Review of Systems Patient producing urine, denies any abdominal pain or nausea or vomiting. Says seems to feeling slowly better Denies any fever or chills. Physical Exam Vital Signs: Vital Signs: Last Vital Signs Temp 98.2 F 03/07/23 11:21 Pulse 100 03/07/23 11:21 Resp 20 03/07/23 11:21 BP 107/58 L 03/07/23 11:21 Pulse Ox 99 03/07/23 11:21 O2 Del Method Room Air 03/07/23 11:21 BMI result Body Mass Index 32.4 Appearance: Alert.? Oriented X3.? not in distress.? cvs: rrr, [id number] . res: clear to auscultation ,no rales or wheezing abd: no rebound or guarding ,nt, bs present. ext pulses present , no cyanosis . neuro: axo3 , nonfocal. Objective Data Active Medications Acetaminophen (Acetaminophen 325 Mg Tablet) 650 mg PO Q6H PRN PRN Reason: Pain, Mild (Pain Scale 1-3) Last Admin: 03/06/23 17:32 Dose: 650 mg Documented By: BILLIE Docusate Sodium (Docusate Sodium 100 Mg Capsule) 100 mg PO DAILY PRN PRN Reason: Constipation Heparin Sodium (Porcine) (Heparin Sodium,Porcine 5,000 Unit/Ml Vial) 5,000 unit SUBCUT Q12H [facility] Last Admin: 03/07/23 03:27 Dose: 5,000 unit Documented By: YUMIKO Sodium Bicarbonate 150 meq/ (Dextrose) 1,000 mls @ 150 mls/hr IV .Q6H40M [facility] Last Admin: 03/07/23 08:31 Dose: Not Given Documented By: LUCI Non-Admin Reason: IV Running Ceftriaxone Sodium 1 gm/ (Sodium Chloride) 50 mls @ 100 mls/hr IV Q24H [facility] Last Infusion: 03/07/23 09:42 Dose: 0 mls/hr Documented By: LUCI Ondansetron HCl (Ondansetron Hcl 4 Mg/2 Ml Vial) 4 mg IVPUSH Q8H PRN PRN Reason: Nausea and Vomiting Pharmacy Consult (Consult Rx Perform Med Rec) 1 each MISCELLANE ONCE PRN PRN Reason: Consult order Sodium Chloride (0.9 % Sodium Chloride Flush 3 Ml Syringe) 3 ml IVFLUSH QSHIFT [facility] Last Admin: 03/07/23 08:31 Dose: 3 ml Documented By: LUCI Labs 03/07/23 06:07 03/07/23 06:07 Labs: Laboratory Results - last 24 hr 03/06/23 03/06/23 03/06/23 12:13 12:57 12:57 MCV MCH MCHC RDW Plt Count MPV Absolute Nucleated RBC Nucleated RBC % (auto) VBG pH VBG pCO2 VBG pO2 VBG HCO3 VBG O2 Saturation VBG Base Excess Anion Gap 20 Estim Creat Clear Calc 12.4 Estimated GFR 6 Random Glucose 94 Calcium 7.1 L D Phosphorus 8.8 H Magnesium 1.3 L* Total Protein Albumin Urine Color Urine Appearance Urine pH Ur Specific [place] Urine Protein Urine Glucose (UA) Urine Ketones Urine Blood Urine Nitrite Ur Leukocyte Esterase Urine RBC Urine WBC Ur Squamous Epith Cells Calcium Oxalate Crystal Urine Bacteria Hyaline Casts Granular Casts Urine Osmolality Ur Random Sodium Urine Creatinine Stl C. cayetanensis PCR Not Detected Stool Rotavirus A PCR Not Detected Stl Adenov F 40/41 PCR Not Detected Stool Astrovirus (PCR) Not Detected Stool Campylobacter PCR Not Detected Stool Cryptosporidium PCR Not Detected Stl Sh Tox Pr E STEC PCR Not Detected Stool E coli O157 PCR Not applicable Stl Enterotoxigenic E PCR Not Detected Stool EPEC (PCR) Not Detected Stool EAEC (PCR) Not Detected Stl E. histolytica PCR Not Detected Stool Giardia Lamblia PCR Not Detected Stl P. shigelloides PCR Not Detected Stool Salmonella PCR Not Detected Stool Sapovirus (PCR) Not Detected Stl Shigella/EIEC PCR Not Detected St Y.enterocolitica PCR Not Detected Stool Vibrio (PCR) Not Detected Stl Vibrio cholerae PCR Not Detected Stl Norovirus GI/GII PCR Not Detected C. difficile Tox B Gene NEGATIVE 03/06/23 03/06/23 03/06/23 13:07 13:07 13:08 MCV MCH MCHC RDW Plt Count MPV Absolute Nucleated RBC Nucleated RBC % (auto) VBG pH VBG pCO2 VBG pO2 VBG HCO3 VBG O2 Saturation VBG Base Excess Anion Gap Estim Creat Clear Calc Estimated GFR Random Glucose Calcium Phosphorus Magnesium Total Protein Albumin Urine Color Yellow Urine Appearance Cloudy Urine pH 5.5 Ur Specific [place] 1.015 Urine Protein 100 (2+) H Urine Glucose (UA) Negative Urine Ketones Trace Urine Blood Moderate (2+) H Urine Nitrite Negative Ur Leukocyte Esterase Moderate (2+) H Urine RBC 0-2 Urine WBC 21-50 H Ur Squamous Epith Cells 11-20 Calcium Oxalate Crystal Present Urine Bacteria None Seen Hyaline Casts >20 Granular Casts Present Urine Osmolality 292 L Ur Random Sodium 24.0 Urine Creatinine 445.74 Stl C. cayetanensis PCR Stool Rotavirus A PCR Stl Adenov F PCR Stool Astrovirus (PCR) Stool Campylobacter PCR Stool Cryptosporidium PCR Stl Sh Tox Pr E STEC PCR Stool E coli O157 PCR Stl Enterotoxigenic E PCR Stool EPEC (PCR) Stool EAEC (PCR) Stl E. histolytica PCR Stool Giardia Lamblia PCR Stl P. shigelloides PCR Stool Salmonella PCR Stool Sapovirus (PCR) Stl Shigella/EIEC PCR St Y.enterocolitica PCR Stool Vibrio (PCR) Stl Vibrio cholerae PCR Stl Norovirus GI/GII PCR C. difficile Tox B Gene 03/06/23 03/06/23 03/06/23 14:05 14:07 18:40 MCV MCH MCHC RDW Plt Count MPV Absolute Nucleated RBC Nucleated RBC % (auto) VBG pH 7.25 L VBG pCO2 27 VBG pO2 34 VBG HCO3 12 L VBG O2 Saturation 56.0 VBG Base Excess -13.0 Anion Gap 17 19 Estim Creat Clear Calc 13.5 14.9 Estimated GFR 7 8 Random Glucose 98 118 H Calcium 6.6 L D 7.0 L D Phosphorus Magnesium 1.2 L* Total Protein Albumin Urine Color Urine Appearance Urine pH Ur Specific [place] Urine Protein Urine Glucose (UA) Urine Ketones Urine Blood Urine Nitrite Ur Leukocyte Esterase Urine RBC Urine WBC Ur Squamous Epith Cells Calcium Oxalate Crystal Urine Bacteria Hyaline Casts Granular Casts Urine Osmolality Ur Random Sodium Urine Creatinine Stl C. cayetanensis PCR Stool Rotavirus A PCR Stl Adenov F PCR Stool Astrovirus (PCR) Stool Campylobacter PCR Stool Cryptosporidium PCR Stl Sh Tox Pr E STEC PCR Stool E coli O157 PCR Stl Enterotoxigenic E PCR Stool EPEC (PCR) Stool EAEC (PCR) Stl E. histolytica PCR Stool Giardia Lamblia PCR Stl P. shigelloides PCR Stool Salmonella PCR Stool Sapovirus (PCR) Stl Shigella/EIEC PCR St Y.enterocolitica PCR Stool Vibrio (PCR) Stl Vibrio cholerae PCR Stl Norovirus GI/GII PCR C. difficile Tox B Gene 03/07/23 03/07/23 06:07 06:07 MCV 99.6 H MCH 34.7 H MCHC 34.9 RDW 13.4 Plt Count 209 MPV 10.1 Absolute Nucleated RBC 0.000 Nucleated RBC % (auto) 0.0 VBG pH VBG pCO2 VBG pO2 VBG HCO3 VBG O2 Saturation VBG Base Excess Anion Gap 19 Estim Creat Clear Calc 24.8 Estimated GFR 15 Random Glucose 109 Calcium 7.3 L Phosphorus 5.2 H Magnesium 1.5 L Total Protein 6.1 L Albumin 3.6 Urine Color Urine Appearance Urine pH Ur Specific [place] Urine Protein Urine Glucose (UA) Urine Ketones Urine Blood Urine Nitrite Ur Leukocyte Esterase Urine RBC Urine WBC Ur Squamous Epith Cells Calcium Oxalate Crystal Urine Bacteria Hyaline Casts Granular Casts Urine Osmolality Ur Random Sodium Urine Creatinine Stl C. cayetanensis PCR Stool Rotavirus A PCR Stl Adenov F 40/41 PCR Stool Astrovirus (PCR) Stool Campylobacter PCR Stool Cryptosporidium PCR Stl Sh Tox Pr E STEC PCR Stool E coli O157 PCR Stl Enterotoxigenic E PCR Stool EPEC (PCR) Stool EAEC (PCR) Stl E. histolytica PCR Stool Giardia Lamblia PCR Stl P. shigelloides PCR Stool Salmonella PCR Stool Sapovirus (PCR) Stl Shigella/EIEC PCR St Y.enterocolitica PCR Stool Vibrio (PCR) Stl Vibrio cholerae PCR Stl Norovirus GI/GII PCR C. difficile Tox B Gene Microbiology Microbiology Results: Microbiology 03/06/23 08:56 Blood Culture - Preliminary Blood - Venous No growth after 24 hours. 03/06/23 08:49 Blood Culture - Preliminary Blood - Venous No growth after 24 hours. 03/06/23 Unknown Urine Culture - Final Urine clean catch - Urine smiley top No growth. Assessment and Plan (1) Acute renal failure: Status: Acute (2) Enteritis: Status: Acute (3) Metabolic acidosis: Status: Acute (4) Hypomagnesemia: Status: Acute (5) Anemia: Status: Acute Plan 43-year-old male with a PMH significant for HTN?who presents to the ED with diarhea x1 week and anuria x one and a half days.? Patient's labs were significant for creatinine of 10.41 and multiple electrolyte abnormalities. Pt will be admitted to the hospital for acute renal failure secondary to dehydration d/t GI losses from possible viral infection. Acute renal failure?with?metabolic acidosis Likely multifactorial:? Dehydration d/t GI losses while continuing ELVIA-I. came with anuria ,received 4L IVF in ED, placed on bicarb drip Hold antihypertensives, ELVIA-I keyanna producing urine ,diarrahe improving NAGMA-bicarb 15 Nephrology consult-continue ivf adjusted bicard drip , patient was encouraged for p.o. hydration and p.o. intake.,moniter renal function/electrolytes ,Monitor on telemetry. Hypomagnesmia stilllow 1.5 replacements ordered moniter renal function/electrolytes Diarrhea Patient has been experiencing significant diarrhea x1 week, possibly from contaminated chicken sandwich CT of abdomen and pelvis show likely enteritis, viral versus bacterial infection c diff and Gip Panel negative . blood cultures neg@24hrs tachycardia, tachypnea due to dehydration not sepsis-resolved. Diarrhea improving continue ceftriaxone (start date 03/06/23) HTN Hold antihypertensives for now anemia macrocytic -does not seems due to acute blood loss,more likely dilutional Patient denies any blood in the stool or any gross Bleeding. moniter h/h hold lovenox Obesity: Patient was encouraged to lose weight once recover from current situation. Full Code DVT Prophylaxis: scd ? anemia ongoing hospitalization stay: treatment of?acute kidney failure in the setting of dehydration secondary to GI losses -need iv f , electrolyte replacements due to electrolytic abnormalities, also renal function and electrolyte monitoring, CBC monitoring for anemia and anemia workup. Patient and family updated in detail at bedside. Time Spent With Patient Time: Total time managing care of this patient today ____ minutes. Quality Stroke Does the patient have a stroke diagnosis?: No VTE Prior VTE?: No VTE Risk Level:: Medical - moderate - high VTE Device Contraindication: Treatment Not Indicated VTE Drug Contraindication: N/A - Med Ordered
[2023-03-07 13:09] LABS: Iron 26 mcg/dL (45-160); Percent Iron Saturation 12 % (15-50); Total Iron Binding Capacity 217 mcg/dL (228-428); Unsaturated Iron Binding 191 ug/dL
[2023-03-07] MEDS: Sodium Bicarbonate 8.4% 150 MEQ in Dextrose 5 % 850 ML 100 MEQ IV (13:13)
[2023-03-07 13:43] LABS: Ferritin 1599 ng/mL (20-250); Folate 10.7 ng/mL (> or = 4.0); Vitamin B12 814 pg/mL (200-900)
[2023-03-07 15:10] VITALS: BP 117/61; PULSE 88; RESP 20; TEMP 37; O2SAT 98
[2023-03-07] MEDS: Acetaminophen 325 MG TABLET 650 MG PO (15:12)
--- NOTE | 2023-03-07 16:29 | PM.PNNEP ---
Subjective Subjective Date of Service: 03/07/23 Interval history: Seen and examined, events noted Physical Exam Vital Signs: Vital Signs: Last Vital Signs Temp 98.6 F 03/07/23 15:10 Pulse 88 03/07/23 15:10 Resp 20 03/07/23 15:10 BP 117/61 03/07/23 15:10 Pulse Ox 98 03/07/23 15:10 O2 Del Method Room Air 03/07/23 15:10 BMI result Body Mass Index 32.4 Objective Data Labs 03/07/23 06:07 03/07/23 06:07 Labs: Laboratory Results - last 24 hr 03/06/23 03/06/23 03/07/23 13:07 18:40 06:07 WBC 7.7 RBC 2.42 L D Hgb 8.4 L D Hct 24.1 L D MCV 99.6 H MCH 34.7 H MCHC 34.9 RDW 13.4 Plt Count 209 MPV 10.1 Absolute Nucleated RBC 0.000 Nucleated RBC % (auto) 0.0 Sodium 134 L Potassium 3.6 Chloride 105 Carbon Dioxide 14 L Anion Gap 19 BUN 66 H Creatinine 7.34 H* Estim Creat Clear Calc 14.9 Estimated GFR 8 Random Glucose 118 H Calcium 7.0 L D Phosphorus Magnesium Iron TIBC % Saturation Unsat Iron Binding Ferritin Total Protein Albumin Vitamin B12 Folate Urine Osmolality 292 L 03/07/23 06:07 WBC RBC Hgb Hct MCV MCH MCHC RDW Plt Count MPV Absolute Nucleated RBC Nucleated RBC % (auto) Sodium 137 Potassium 3.6 Chloride 107 Carbon Dioxide 15 L Anion Gap 19 BUN 59 H Creatinine 4.41 H* Estim Creat Clear Calc 24.8 Estimated GFR 15 Random Glucose 109 Calcium 7.3 L Phosphorus 5.2 H Magnesium 1.5 L Iron 26 L TIBC 217 L % Saturation 12 L Unsat Iron Binding 191 Ferritin 1599 H Total Protein 6.1 L Albumin 3.6 Vitamin B12 814 Folate 10.7 Urine Osmolality Microbiology Microbiology Results: Microbiology 03/06/23 08:56 Blood - Venous Blood Culture - Preliminary No growth after 24 hours. 03/06/23 08:49 Blood - Venous Blood Culture - Preliminary No growth after 24 hours. 03/06/23 Unknown Urine clean catch - Urine smiley top Urine Culture - Final No growth. Procedures Date of Service Date of Service: 03/07/23 Assessment & Plan Assessment and plan (1) Acute renal failure: Status: Acute (2) Enteritis: Status: Acute (3) Metabolic acidosis: Status: Acute (4) Hypomagnesemia: Status: Acute (5) Anemia: Status: Acute Plan Oliguric --> Non-Oliguric AYSE: decr SCr and clin presentation c/w renal hypoperfusion recovering Dehydration: GI losses AGMA/NAGMA: cont HCO3 infusion Anemia: Fe def REC: IV NaHCO3; track UOP/renal func; avoid ELVIA/ARB for now; IV Fe ordered will follow w team Time Spent With Patient Time: Total time managing care of this patient today ____ minutes. Progress Note: Quality Stroke Does the patient have a stroke diagnosis?: No
[2023-03-07] MEDS: Iron Sucrose Complex 200 MG in 0.9 % Sodium Chloride 100 ML 440 MG IV (17:27)
[2023-03-07 19:10] VITALS: BP 112/64; PULSE 110; RESP 20; TEMP 37; O2SAT 99
[2023-03-07 23:29] VITALS: BP 112/57; PULSE 88; RESP 18; TEMP 37.3; O2SAT 96
--- NOTE | 2023-03-07 23:42 | CONS_ITS ---
DATE OF SERVICE: 03/06/2023 REASON FOR CONSULTATION: I was asked to see patient to assist in evaluation and management of patient's severe acute kidney injury as reflected by a creatinine of 10.4 on admission, BUN of 70, and bicarb of 14. HISTORY OF PRESENT ILLNESS: In summary, patient is a 43-year-old gentleman with a history of hypotension, was maintained on ELVIA inhibitor and calcium-channel le, who had been feeling unwell for at least a week with predominant diarrhea symptoms. It is unclear what precipitated the diarrhea, but nonetheless he got quite sick with the diarrhea and became quite dehydrated. He was unable to keep up with taking fluids. He had poor urine output for several days. 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 He finally came to the emergency room and was noted to be hypotensive with systolic blood pressure in the 80s and severe acute kidney injury along with the metabolic acidosis. Patient was given several liters of IV fluids in the emergency room, and clearly he is able to make little bit of urine. The blood pressure also came up with systolics around 100. He denies any history of kidney problems, kidney stones, gross hematuria or dysuria. PAST MEDICAL HISTORY: As mentioned, includes the kidney stones. His past medical history is notable for the hypertension. On admission, he had a CAT scan, which showed bilateral kidney stones that were nonobstructing. MEDICATIONS: His medications on admission as mentioned include amlodipine and lisinopril. ALLERGIES: HE HAS NO KNOWN DRUG ALLERGIES. CURRENT MEDICATIONS: As noted in the MAR. SOCIAL HISTORY: He is a nonsmoker, nondrinker. No illicit drug use. REVIEW OF SYSTEMS: As noted above. PHYSICAL EXAMINATION: VITAL SIGNS: Blood pressure has mentioned with systolics as low as 80. It come up to now 100 after 3 to 4 L of IV fluids. HEENT: Head atraumatic, normocephalic. Neck is supple. Mucous membranes are moist. He has a bit of redness to the face which is typical for him because he works outside. There is no JVD. Mucous membranes are dry. LUNGS: Breath sounds bilaterally clear. CARDIAC: Regular rate and rhythm. ABDOMEN: Soft, nontender. Good bowel sounds. No CVA tenderness. EXTREMITIES: There is no edema. LABORATORY DATA: As mentioned, showed a creatinine of 10.4 on admission, is already down to 9.2 after some IV fluids. Sodium 131, bicarb 14, anion gap was 25. Calcium 6.6, mag 1.2. Hemoglobin 11.2. Urinalysis showed 2+ blood. There is urine sodium of 24. Urine 445. He had a CAT scan of the abdomen and pelvis, which showed again nonobstructing stones. No hydro. IMPRESSION: 43-year-old hypertensive patient admitted to the hospital with relatively severe dehydration, hypotension, and severe acute kidney injury with a non-anion gap metabolic acidosis. 1. Oliguric acute kidney injury. This is most consistent with severe dehydration and renal hypoperfusion, accentuated by being on the ELVIA inhibitor. Our anticipations with IV rehydration enough that he will get good renal perfusion and have recovery of acute kidney injury. Other possibilities need to be considered and depending on his clinical course over the next 24 hours, we will proceed with a further broad workup for cause of acute kidney injury. 1. Hypotension. This is due to dehydration. It is already improving rehydration with IV fluids. 2. Ehh-[id number]-our metabolic acidosis. This is consistent with acute kidney injury and diarrhea. That should respond to IV sodium bicarb. 3. Diarrheal illness. He is getting further evaluation for cause of this. RECOMMENDATION: At this time include continue aggressive rehydration with IV fluids using sodium bicarb. Follow urine output and renal function closely. Avoid use of ELVIA or ARB. Track urine output and renal function. If his renal function does not improve significantly by the morning, then further workup will be done with additional laboratory studies. His magnesium is being replaced. We will track his calcium and may need calcium supplementation as well. MD LES Mahoney/JERICA / [phone]
[2023-03-08 03:14] VITALS: BP 122/65; PULSE 79; RESP 18; TEMP 36.9; O2SAT 96
[2023-03-08] MEDS: Sodium Bicarbonate 8.4% 150 MEQ in Dextrose 5 % 850 ML 100 MEQ IV (03:33)
[2023-03-08 07:09] LABS: Blood Urea Nitrogen 38 mg/dL (9-16); Glucose Random 108 mg/dL (60-115)
[2023-03-08 07:26] VITALS: BP 126/68; PULSE 76; RESP 18; TEMP 37.2; O2SAT 98
[2023-03-08 07:31] LABS: Anion Gap 14 (12-20); Carbon Dioxide 26 mmol/L (22-29); Chloride 102 mmol/L (96-108); Estimated Glomerular Filt Rate 45; Potassium 3.4 mmol/L (3.3-5.1); Sodium 139 mmol/L (135-145)
[2023-03-08] MEDS: cefTRIAXone sodium 1 GM in 0.9 % Sodium Chloride 50 ML IV (08:43)
[2023-03-08 10:09] LABS: Hematocrit 26.5 % (42.0-52.0); Hemoglobin 9.1 g/dl (14.0-18.0)
--- NOTE | 2023-03-08 10:30 | PM.DS ---
DS: Providers Provider Date of Service: 03/08/23 Date of admission: 03/06/23 14:36 Date of discharge: 03/08/23 Primary care physician: PRISCILLA MUNIZ Consults: 03/06/23 10:57 Consult to Nephrology Stat Consulting Provider: Elio Acosta Reason for consultation: anuric renal failure Has provider been notified: Yes DS: Diagnosis Discharge Diagnosis (1) Acute renal failure: Status: Acute (2) Enteritis: Status: Acute (3) Metabolic acidosis: Status: Acute (4) Hypomagnesemia: Status: Acute (5) Anemia: Status: Acute DS: Summary Hospital Course Hospital Course: 43-year-old male with a PMH significant for HTN?who presents to the ED with diarhea x1 week. Pt states that he may have eaten a suspicious chicken sandwich but is uncertain of any precipitating factor. Denies sick contacts, recent travel. He reports 12+episodes of non-bloody diarrhea initially which have gradually improved to 5-6 episodes daily. Tried to keep up with fluids by drinking water and Gatorade, but pt reports stopped producing urine a day and a half ago. Also notes feeling gassy with abdominal cramps and diffuse myalgias, but denies fever, chills, nausea, vomiting. Pt notes he continued to take his antihypertensives, including lisinopril. In the ED patient was afebrile but tachycardic up to 117 and tachypneic up to 24, and hypotensive as low as 83/53. Labs were significant for leukocytosis of 14.4, H&H 11.2/32.9, sodium of 131, bicarb of 14, BUN of 70, creatinine of 10.41, phosphorus a 90 knee series 1.0, AST of 62 alk-phos 122, creatinine kinase 234.? VBG showed metabolic acidosis: Ph 7.25 with bicarb of 12.? UA negative for UTI. CXR showed no acute disease.? CT of abdomen and pelvis showed hepatomegaly and likely hepatic steatosis, bilateral renal stones with no hydroureteronephrosis, and findings likely of an enteritis rather than mild partial small-bowel obstruction. Pt was treated with 4 L of NS, magnesium IV, ceftriaxone, and started on a bicarb drip. Pt will be admitted to the hospital for acute renal failure secondary to dehydration d/t GI losses from possible viral infection. Hospital course: Patient was admitted because of diarrhea and not producing urine: Patient had diarrhea for a week or so and after that he started becoming anuric-subsequently patient was in the hospital got admitted for above. Patient was found to have acute renal failure multifactorial(dehydration, diarrhea, blood pressure medication related, borderline blood pressure), metabolic acidosis, electrolytic abnormalities including hypomagnesemia and hypokalemia, CT abdomen showed possible enteritis question likely viral versus bacterial. Patient was started on IV fluids, hold lisinopril-seen by Nephrology: Recommended to continue IV fluid and avoid nephrotoxic medications: Subsequently patient seems to be improved with hydration and holding meds as above. Patient creatinine currently is 1.6, nephrology recommended to stop lisinopril currently and continue amlodipine. If needed for hypertension: May add another antihypertensive outpatient with PCP. Currently blood pressure is stable ,start amlodipine tomorrow. Enteritis? Question likely viral but may be superimposed bacterial component: We will give benefit of doubt and give Augmentin-complete the course 4 days antibiotic. Blood culture negative at 24 hours, no fever, leukocytosis resolved, GI panel negative, C diff also negative. Hypomagnesemia and hypokalemia: Repleted hypokalemia improved, hypo magnesemia improving also. Added magnesium replacement upon discharge. Further management outpatient with PCP and Nephro. Plan: hold ELVIA /nephrotoxic meds until clear from nephrology. complete augmentin for 4days moniter bp closely . Ordered magnesium supplements, moniter bmp and magnesium levels in 1 week. Assessment plan discussed with patient and and the family at bedside in detail, time spent 50 minute. Time Spent with Patient Time attestation: Total time managing care of this patient today ____ minutes. Discharge coordination time: Greater than 30 minutes Quality: Safe Use of Opioids Does Pt have an Active Cancer Diagnosis on the Problem List?: No Quality: Stroke Does the patient have a stroke diagnosis?: No Physical Exam Vital Signs: Vital Signs: Last Vital Signs Temp 99.0 F 03/08/23 07:26 Pulse 76 03/08/23 07:26 Resp 18 03/08/23 07:26 BP 126/68 03/08/23 07:26 Pulse Ox 98 03/08/23 07:26 O2 Del Method Room Air 03/08/23 07:26 BMI result Body Mass Index 32.4 Appearance: Alert.? Oriented X3.? not in distress.? cvs: rrr, [id number] . res: clear to auscultation ,no rales or wheezing abd: no rebound or guarding ,nt, bs present. ext pulses present , no cyanosis . neuro: axo3 , nonfocal. DS: Data Data Completed and Pending Labs on day of discharge: Laboratory Results - last 24 hr 03/07/23 03/08/23 03/08/23 06:07 06:18 09:55 Hgb 9.1 L Hct 26.5 L Sodium 139 Potassium 3.4 Chloride 102 Carbon Dioxide 26 Anion Gap 14 BUN 38 H Creatinine 1.66 H Estim Creat Clear Calc 66.0 Estimated GFR 45 Random Glucose 108 Calcium 8.0 L D Iron 26 L TIBC 217 L % Saturation 12 L Unsat Iron Binding 191 Ferritin 1599 H Total Protein 6.1 L Albumin 3.6 Vitamin B12 814 Folate 10.7 Preliminary micro results at discharge 03/06/23 08:56 Blood Culture - Preliminary Blood - Venous No growth after 24 hours. 03/06/23 08:49 Blood Culture - Preliminary Blood - Venous No growth after 24 hours. Imaging Chest x-ray: Radiologist's impression: ITS Impressions Chest X-Ray 03/06/23 10:59 IMPRESSION: No acute disease. Abdomen/Pelvis CT 03/06/23 11:20 IMPRESSION: * There is hepatomegaly and heterogeneous appearance of hepatic steatosis. * Bilateral renal stones are present. No ureteral calculi or hydroureteronephrosis. * Mild fluid distention of small bowel loops in the left abdomen with apparent mild wall thickening and mild haziness of adjacent mesenteric fat. These findings are suspected to be from an enteritis rather than a mild partial small bowel obstruction. * Colonic diverticula without diverticulitis. Discharge Plan Discharge Anticipated Discharge Date/Time: 03/08/23 10:15 Patient Disposition: Home, Self-Care Discharge Diagnosis: laurence, metabolic acidosis ,enteritis Referrals: PRISCILLA MUNIZ [Primary Care Provider] - 1 Week Elio Acosta MD [Physician] - 1 Week (follow up outpatient) Discharge Medications: New amoxicillin-pot clavulanate [Augmentin] 500-125 mg tablet 1 tab PO BID Qty: 8 0RF magnesium oxide 400 mg magnesium capsule 400 mg PO BID Qty: 10 0RF Continued amlodipine 10 mg tablet 10 mg PO DAILY Discontinued lisinopril 10 mg tablet 10 mg PO DAILY Discharge Orders: Discharge Order (Routine); Ordered 03/08/23 Ordered By: Yoly Bustamante Diet: Advance to usual diet Activity on Discharge: As tolerated Stand Alone Forms: Patient Portal Discharge page Other Ambulatory Orders: Basic Metabolic Panel (Routine) Timeframe: 1 Day Facility: [facility] - Location: Laboratory Ordered By: Yoly Bustamante Complete Blood Count no Diff (Routine) Timeframe: 1 Day Facility: [facility] - Location: Laboratory Ordered By: Yoly Bustamante Magnesium (Routine) Timeframe: 1 Week Facility: [facility] - Location: Laboratory Ordered By: Yoly Bustamante Care Plan Goals: Patient was admitted because of diarrhea and not producing urine: Patient had diarrhea for a week or so and after that he started becoming anuric-subsequently patient was in the hospital got admitted for above. Patient was found to have acute renal failure multifactorial(dehydration, diarrhea, blood pressure medication related, borderline blood pressure), metabolic acidosis, electrolytic abnormalities including hypomagnesemia and hypokalemia, CT abdomen showed possible enteritis question likely viral versus bacterial. Patient was started on IV fluids, hold lisinopril-seen by Nephrology: Recommended to continue IV fluid and avoid nephrotoxic medications: Subsequently patient seems to be improved with hydration and holding meds as above. Patient creatinine currently is 1.6, nephrology recommended to stop lisinopril currently and continue amlodipine. If needed for hypertension: May add another antihypertensive outpatient with PCP. Currently blood pressure is stable ,start amlodipine tomorrow. Enteritis? Question likely viral but may be superimposed bacterial component: We will give benefit of doubt and give Augmentin-complete the course 4 days antibiotic. Blood culture negative at 24 hours, no fever, leukocytosis resolved, GI panel negative, C diff also negative. Hypomagnesemia and hypokalemia: Repleted hypokalemia improved, hypo magnesemia improving also. Added magnesium replacement upon discharge. Anemia normocytic: Likely dilutional, follow-up CBC outpatient. Further management outpatient with PCP and Nephro. Health Concerns: Plan: hold ELVIA /nephrotoxic meds until clear from nephrology. complete augmentin for 4days moniter bp closely . Ordered magnesium supplements, moniter bmp and magnesium levels in 1 week. Follow CBC, BMP, magnesium level in 1 week outpatient Follow-up with PCP and Nephrology out patiently Plan of Treatment: As above. Assessment: As above. With
[2023-03-08] MEDS: Amoxicillin/Potassium Clav 500 MG TABLET PO (11:00)
--- NOTE | 2023-03-08 15:19 | MHC.CM.PN ---
Patient discharged to home today self care. His provided transportation home.
== END 2023-03-08 11:09 | disposition home or self-care (01) | DRG 249 ==
LOC: HO.ED 13:03 → HO.EDOVER 14:52 → HO.IMC 15:08
PROVIDERS: Physician Assistant; Admitting Provider Student in an Organized Health Care Education/Training Program; Emergency Provider Emergency Medicine; PCP Physician Assistant Medical; Visit Provider Internal Medicine
DX: K52.9 Noninfective gastroenteritis and colitis, unspecified (principal); N17.0 Acute kidney failure with tubular necrosis; E87.20 Acidosis, unspecified; I95.9 Hypotension, unspecified; E86.0 Dehydration; F17.210 Nicotine dependence, cigarettes, uncomplicated; E66.9 Obesity, unspecified; D50.9 Iron deficiency anemia, unspecified; E83.42 Hypomagnesemia; F41.9 Anxiety disorder, unspecified; Z71.6 Tobacco abuse counseling; I10 Essential (primary) hypertension; Z68.32 Body mass index [BMI] 32.0-32.9, adult
CPT/HCPCS: 36415; 71045; 74176; 80048; 80076; 81001; 82040; 82550; 82607; 82728; 82746; 82803; 83540; 83605; 83735; 83935; 84100; 84155; 84300; 85014; 85018; 85025; 85027; 87040; 87086; 87493; 87507; 99285; J0696; J1643; J1756; J3475

== ENCOUNTER 2023-03-09 13:47 | Outpatient (REF) | payer OTHER, SELFPAY ==
[2023-03-09 14:28] LABS: Hematocrit 25.6 % (42.0-52.0); Hemoglobin 8.5 g/dl (14.0-18.0); Mean Corpuscular HGB Conc 33.2 g/dl (31.0-36.0); Mean Corpuscular Hemoglobin 34.7 pg (27.0-33.0); Mean Corpuscular Volume 104.5 fL (80.0-98.0); Mean Platelet Volume 10.2 fL (9.4-12.4); Platelet Count 289 X10*3/uL (160-400); Red Blood Count 2.45 X10*6/uL (4.60-5.80); Red Cell Distribution Width 13.7 % (11.0-16.0); White Blood Count 9.2 X10*3/uL (4.8-10.8)
[2023-03-09 16:05] LABS: Anion Gap 14 (12-20); Blood Urea Nitrogen 22 mg/dL (9-16); Calcium 7.8 mg/dL (8.4-10.2); Carbon Dioxide 29 mmol/L (22-29); Chloride 101 mmol/L (96-108); Estimated Glomerular Filt Rate > 60; Glucose Random 95 mg/dL (60-115); Potassium 4.2 mmol/L (3.3-5.1); Sodium 140 mmol/L (135-145)
== END 2023-03-09 13:48 | disposition home or self-care (01) ==
LOC: HO.LAB 13:47
PROVIDERS: Visit Provider Internal Medicine
DX: E83.42 Hypomagnesemia (principal); D64.9 Anemia, unspecified; K52.9 Noninfective gastroenteritis and colitis, unspecified; N17.9 Acute kidney failure, unspecified
CPT/HCPCS: 36415; 80048; 83735; 85027

== ENCOUNTER 2023-03-10 07:17 | Emergency (ER) | payer OTHER, SELFPAY ==
--- NOTE | 2023-03-10 | ECG_ITS ---
Test Reason : low mag Blood Pressure : / mmHG Vent. Rate : 084 BPM Atrial Rate : 084 BPM P-R Int : 158 ms QRS Dur : 080 ms QT Int : 372 ms P-R-T Axes : 033 022 016 degrees QTc Int : 439 ms Normal sinus rhythm Normal ECG No previous ECGs available Referred By: Generic ED Physician Electronically Signed By:Andrew Knutson
[2023-03-10 07:27] VITALS: BP 130/73; PULSE 89; RESP 18; TEMP 37.3; BMI 31.6
[2023-03-10 07:50] LABS: Basophils Percent Auto 0.5 % (0-2); Eosinophils Absolute Auto 0.1 X10*3/uL (0.0-0.4); Eosinophils Percent Auto 1.3 % (0-4); Hematocrit 26.7 % (42.0-52.0); Hemoglobin 8.9 g/dl (14.0-18.0); Imm Gran Abs Auto 0.04 X10*3/uL (0.00-0.03); Imm Gran Pct Auto 0.5 % (0.0-0.4); Lymphocytes Percent Auto 12.3 % (20-40); MANUAL DIFF FLAG SCAN; Mean Corpuscular HGB Conc 33.3 g/dl (31.0-36.0); Mean Corpuscular Hemoglobin 35.3 pg (27.0-33.0); Monocytes Absolute Auto 1.9 X10*3/uL (0.1-1.2); Monocytes Percent Auto 22.2 % (2-11); Neutrophils Absolute Auto 5.4 x10*3/uL (2.0-8.3); Neutrophils Percent Auto 63.2 % (45-73); PLT CLUMP 1; Red Blood Count 2.52 X10*6/uL (4.60-5.80); Red Cell Distribution Width 13.8 % (11.0-16.0); SCAN SMEAR FLAG 1
[2023-03-10 08:21] LABS: White Blood Count 8.5 X10*3/uL (4.8-10.8)
[2023-03-10 08:22] LABS: Platelet Count 243 X10*3/uL (160-400); SLIDE REVIEW VERIFIED
[2023-03-10 08:27] LABS: Alanine Aminotransferase 14 U/L (0-40); Albumin Level 3.9 g/dL (3.5-5.0); Alkaline Phosphatase 100 U/L (39-117); Anion Gap 15 (12-20); Aspartate Amino Transferase 31 U/L (5-37); Bilirubin Total 0.5 mg/dL (0.0-1.0); Blood Urea Nitrogen 16 mg/dL (9-16); Calcium 7.8 mg/dL (8.4-10.2); Carbon Dioxide 26 mmol/L (22-29); Chloride 101 mmol/L (96-108); Creatinine Clr Calc Pharmacy 88.5; Estimated Glomerular Filt Rate > 60; Glucose Random 110 mg/dL (60-115); Potassium 3.8 mmol/L (3.3-5.1); Sodium 138 mmol/L (135-145); Total Protein 6.6 g/dL (6.5-8.0)
[2023-03-10 08:29] LABS: Magnesium 0.9 mg/dL (1.6-2.6)
--- NOTE | 2023-03-10 08:34 | ED_ITS ---
HPI - General Adult General Chief complaint: Recheck/Abnormal Lab/Rx Stated complaint: Needs IV drip Time Seen by Provider: 03/10/23 08:34 Source: patient Mode of arrival: ambulatory Limitations: no limitations History of Present Illness HPI narrative: Patient is a 43 year old assigned male at with a history of recent admission for renal failure presenting to the emergency department today with a low magnesium level. Patient states that he was recently admitted for renal failure, had outpatient labs done yesterday, and was promptly called and told his magnesium was critically low and he needed to return to the emergency department. Patient states that his only complaint is his left foot sometimes hurts when he steps on it. Patient states that the pain shoots into his toes and comes and goes. Patient denies any dizziness, lightheadedness, abdominal pain, nausea, vomiting, fever, chills, blurry vision, double vision, loss of vision, chest pain, difficulty breathing, shortness of breath, back pain, night sweats, pain with urination, increased urinary frequency, increased urinary urgency, blood in his urine or stool, syncope or a near syncopal episode, recent trauma or falls, bowel incontinence, bladder incontinence, bowel retention, bladder retention, or any other complaints at this time. Severity: mild Relieving factors: none Exacerbating factors: none Associated symptoms: denies other symptoms Treatments prior to arrival: none Related Data Home Medications Medication Instructions Recorded Confirmed amlodipine 10 mg tablet 10 mg PO DAILY 03/06/23 03/06/23 Previous Rx's Medication Instructions Recorded amoxicillin 500 mg-potassium 1 tab PO BID #8 tabs 03/08/23 clavulanate 125 mg tablet (Augmentin) magnesium oxide 400 mg PO BID #10 caps 03/08/23 Allergies Allergy/AdvReac Type Severity Reaction Status Date / Time No Known Allergies Allergy Verified 03/10/23 07:51 Review of Systems Constitutional: Constitutional: Reports no additional constitutional complaints, Denies chills, Denies fever(s) and Denies night sweats Eyes: Eyes: Reports no additional eye complaints, Denies blurry vision, Denies change in vision, Denies diplopia, Denies eye discharge, Denies loss of vision and Denies eye pain ENT: Denies dizziness Cardiovascular: Cardiovascular: Reports no additional cardiovascular complaints, Denies chest pain, Denies lightheadedness, Denies Loss of Consciousness and Denies dyspnea Respiratory: Respiratory: Reports no additional respiratory complaints and Denies dyspnea Gastrointestinal: Gastrointestinal: Reports no additional gastrointestinal complaints, Denies abdominal pain, Denies melena, Denies hematochezia, Denies change in bowel habits and Denies change in stool character Genitourinary: Genitourinary: Reports no additional male genitourinary complaints, Denies hematuria, Denies oliguria, Denies difficulty urinating, Denies dysuria, Denies urinary frequency, Denies urinary hesitancy, Denies uri nary incontinence and Denies urinary urgency Musculoskeletal: Musculoskeletal: Reports no additional musculoskeletal complaints, Denies numbness and Denies tingling Comments: intermittent left foot pain Neurologic: Denies dizziness, Denies loss of vision, Denies numbness and Denies tingling Psychiatric: Psychiatric: Reports no additional psychiatric complaints Endocrine: Endocrine: Reports no additional endocrine complaints Hematologic/Lymphatic: Hematologic/Lymphatic: Reports no additional hemato logic/lymphatic complaints Allergic/Immunologic: Allergic/Immunologic: Reports no additional allergic/immunologic complaints PMFSH Past Medical History Attestation statement: The following information was validated with the patient. Source: old records reviewed and nursing notes reviewed Medical History Anxiety Family History Family History Mother No problems noted. Father No problems noted. 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 [employer] Physical Exam ED Vital Signs: Vital Signs - 24 hr 03/10/23 07:27 Temperature 99.2 F Pulse Rate 89 Respiratory Rate 18 Blood Pressure 130/73 Oxygen Delivery Method Room Air BMI result Body Mass Index 31.6 Const General: cooperative, no acute distress, alert and awake Nutritional Appearance: well nourished Orientation/consciousness: patient oriented x3 Limitations: no limitations HENMT Head: Yes normal to inspection and Yes atraumatic Ears: hearing grossly normal bilaterally and external ears normal General nose exam: Normal external nose present, no nasal discharge noted and no epistaxis Face and sinus: Yes normal facial exam, No abrasion and No laceration Mouth: Normal oral and palatal mucosa present, no drooling and no muffled voice Eyes General: appearance normal, both eyes and all related structures Periorbital: periorbital findings normal Eyelids: Yes eyelids normal Conjunctivae: conjunctivae normal Pupils: Equal, round and reactive pupils present EOM: EOMs intact bilaterally Neck Neck: Yes normal visual inspection, Yes full ROM and Yes no lymphadenopathy Chest Chest palpation & inspection: normal inspection of the chest Resp Effort & Inspection: normal respiratory effort and able to speak in complete sentences GI Inspection: Yes normal to inspection Neuro General: patient oriented x3 and moves all extremities Cranial nerves: Yes Equal, round and reactive pupils present Cognition (Neuro): normal cognition Motor exam (neuro): 5/5 motor strength present throughout Sensory Exam: Normal double simultaneous stimulation for sensation Coordination: [id number] test normal Extrem General: Yes normal to inspection, Yes full ROM and Yes capillary refill normal Psych Appearance: grossly normal Mental Status: mental status grossly normal Affect: normal affect Attitude: cooperative Thought process: Normal thought process present Thought content: Normal thought content present Insight: Good insight present (Psych) Medications Administered Discontinued Medications Generic Name Dose Route Start Last Admin Trade Name Freddieq PRN Reason Stop Dose Admin Magnesium Sulfate 2 gm in 50 mls @ 25 mls/hr 03/10/23 08:35 03/10/23 09:15 Magnesium Sulfate/H2o IV 03/10/23 10:34 25 mls/hr ONCE ONE Administration Magnesium Sulfate 2 gm in 50 mls @ 25 mls/hr 03/10/23 08:35 03/10/23 10:47 Magnesium Sulfate/H2o IV 03/10/23 10:34 25 mls/hr ONCE ONE Administration Medical Decision Making Medical Decision Making MDM Narrative: Patient is a 43 year old assigned male at with a history of recent admission for renal failure presenting to the emergency department today with left foot pain and a low magnesium level. Patient's physical exam was unremarkable. Patient's blood work showed a magnesium of 0.9. Patient's urine showed no acute process. Patient's EKG was unremarkable. I explained my physical exam findings as well as all test results to the patient. I answered all questions asked by the patient. Patient received 4 grams of magnesium over 4 hours which increased his magnesium level to 2.2. Patient's left foot pain is most consistent with plantar fasciitis. I stressed the importance of the patient taking his medication as prescribed. I stressed the importance of the patient following up with his primary care provider and an orthopedic provider. I stressed the importance of the patient returning to the emergency department immediately if his symptoms were to worsen or if he were to develop any dizziness, shortness of breath, difficulty breathing, chest pain, blurry vision, loss of vision, nausea, vomiting, abdominal pain, fever, chills, back pain, or any other complaints. Patient verbalized agreement and understanding with this treatment plan and discharge. Differential Diagnosis Differential Diagnoses: The differential diagnosis associated with the presentation includes plantar fsciitis, hypomagnesemia Admission/Observation Consideration of admission/observation: Escalation of care including admission/observation considered Patient would have been admitted to the hospital had his work up had any findings where hospital admission was appropriate or if the patient's magnesium level did not approve after his 4 total grams of IV magnesium. Lab Data MDM Lab Attestation statement: I reviewed the patient's lab results. My interpretation of these studies and their corresponding values is that they are grossly normal with the exception of his initially low magnesium level of 0.9 which improved after 4 total grams of IV magnesium to the level of 2.2. 03/10/23 07:37 03/10/23 08:01 Labs: Lab Results 03/10/23 03/10/23 03/10/23 Range/Units 07:37 08:01 08:44 WBC 8.5 (4.8-10.8) X10*3/uL RBC 2.52 L (4.60-5.80) X10*6/uL Hgb 8.9 L (14.0-18.0) g/dl Hct 26.7 L (42.0-52.0) % MCV 106.0 H (80.0-98.0) fL MCH 35.3 H (27.0-33.0) pg MCHC 33.3 (31.0-36.0) g/dl RDW 13.8 (11.0-16.0) % Plt Count 243 (160-400) X10*3/uL MPV Not Reportable Immature Gran % (Auto) 0.5 H (0.0-0.4) % Neut % (Auto) 63.2 (45-73) % Lymph % (Auto) 12.3 L (20-40) % [place] % (Auto) 22.2 H (2-11) % Eos % (Auto) 1.3 (0-4) % Baso % (Auto) 0.5 (0-2) % Lymph # (Auto) 1.0 L (1.2-4.9) X10*3/uL [place] # (Auto) 1.9 H (0.1-1.2) X10*3/uL Eos # (Auto) 0.1 (0.0-0.4) X10*3/uL Baso # (Auto) 0.0 (0.0-0.2) X10*3/uL Abs Immat Gran (auto) 0.04 H (0.00-0.03) X10*3/uL Absolute Neuts (auto) 5.4 (2.0-8.3) x10*3/uL Absolute Nucleated RBC 0.000 (0.0-0.012) X10*3/uL Nucleated RBC % (auto) 0.0 (0.0-0.2) /100WBC Smear Tech's Comments VERIFIED Sodium 138 (135-145) mmol/L Potassium 3.8 (3.3-5.1) mmol/L Chloride 101 (96-108) mmol/L Carbon Dioxide 26 (22-29) mmol/L Anion Gap 15 (12-20) BUN 16 (9-16) mg/dL Creatinine 1.26 (0.5-1.4) mg/dL Estim Creat Clear Calc 88.5 Estimated GFR > 60 Random Glucose 110 (60-115) mg/dL Calcium 7.8 L (8.4-10.2) mg/dL Magnesium 0.9 L* (1.6-2.6) mg/dL Total Bilirubin 0.5 (0.0-1.0) mg/dL AST 31 (5-37) U/L ALT 14 (0-40) U/L Alkaline Phosphatase 100 (39-117) U/L Total Protein 6.6 (6.5-8.0) g/dL Albumin 3.9 (3.5-5.0) g/dL Urine Color Urine Appearance Urine pH (5.0-9.0) Ur Specific [place] (1.005-1.025) Urine Protein (Neg-Trace) mg/dL Urine Glucose (UA) (Negative) mg/dL Urine Ketones (Negative) mg/dL Urine Blood (Negative) Urine Nitrite (Negative) Ur Leukocyte Esterase (Negative) Urine RBC (0-2) /HPF Urine WBC (0-5) /HPF Ur Squamous Epith Cells (0-2) /HPF Urine Bacteria (None Seen) Hyaline Casts (0-2) /LPF COVID-19 ([facility]OS[facility] MIGUEL) Negative (Negative) COVID-19 Clin Com See Note Influenza Type A (GEN[facility]O) (Negative) Influenza Type B (GENARO) (Negative) Influenza A & B Note 03/10/23 03/10/23 03/10/23 Range/Units 08:45 11:18 13:34 WBC (4.8-10.8) X10*3/uL RBC (4.60-5.80) X10*6/uL Hgb (14.0-18.0) g/dl Hct (42.0-52.0) % MCV (80.0-98.0) fL MCH (27.0-33.0) pg MCHC (31.0-36.0) g/dl RDW (11.0-16.0) % Plt Count (160-400) X10*3/uL MPV Immature Gran % (Auto) (0.0-0.4) % Neut % (Auto) (45-73) % Lymph % (Auto) (20-40) % [place] % (Auto) (2-11) % Eos % (Auto) (0-4) % Baso % (Auto) (0-2) % Lymph # (Auto) (1.2-4.9) X10*3/uL [place] # (Auto) (0.1-1.2) X10*3/uL Eos # (Auto) (0.0-0.4) X10*3/uL Baso # (Auto) (0.0-0.2) X10*3/uL Abs Immat Gran (auto) (0.00-0.03) X10*3/uL Absolute Neuts (auto) (2.0-8.3) x10*3/uL Absolute Nucleated RBC (0.0-0.012) X10*3/uL Nucleated RBC % (auto) (0.0-0.2) /100WBC Smear Tech's Comments Sodium (135-145) mmol/L Potassium (3.3-5.1) mmol/L Chloride (96-108) mmol/L Carbon Dioxide (22-29) mmol/L Anion Gap (12-20) BUN (9-16) mg/dL Creatinine (0.5-1.4) mg/dL Estim Creat Clear Calc Estimated GFR Random Glucose (60-115) mg/dL Calcium (8.4-10.2) mg/dL Magnesium 2.2 (1.6-2.6) mg/dL Total Bilirubin (0.0-1.0) mg/dL AST (5-37) U/L ALT (0-40) U/L Alkaline Phosphatase (39-117) U/L Total Protein (6.5-8.0) g/dL Albumin (3.5-5.0) g/dL Urine Color Yellow Urine Appearance Clear Urine pH 6.0 (5.0-9.0) Ur Specific [place] 1.015 (1.005-1.025) Urine Protein 100 (2+) H (Neg-Trace) mg/dL Urine Glucose (UA) Negative (Negative) mg/dL Urine Ketones Negative (Negative) mg/dL Urine Blood Trace H (Negative) Urine Nitrite Negative (Negative) Ur Leukocyte Esterase Negative (Negative) Urine RBC 0-2 (0-2) /HPF Urine WBC 0-5 (0-5) /HPF Ur Squamous Epith Cells 0-2 (0-2) /HPF Urine Bacteria None Seen (None Seen) Hyaline Casts 0-2 (0-2) /LPF COVID-19 ([facility] MIGUEL) (Negative) COVID-19 Clin Com Influenza Type A (GENARO) Negative (Negative) Influenza Type B (GENARO) Negative (Negative) Influenza A & B Note See Note Independent Interpretation I performed an independent interpretation of an: EKG Interpretation: Vent. Rate: 084 BPM ? ? Atrial Rate: 084 BPM P-R Int: 158 ms? QRS Dur: 080 ms QT Int: 372 ms ? ? ? P-R-T Axes: 033 022 016 degrees QTc Int: 439 ms ? Normal sinus rhythm Normal ECG No previous ECGs available DD/ [id number] Critical Care Time Critical Care Time Critical Care Time: Yes Total Critical Care Time: 30 Attestation: I spent [NUMBER] minutes of Critical Care Time with this patient. This does not include time spent on separately reported billable procedures. Discharge Plan Discharge Clinical Impression: Hypomagnesemia, Plantar fasciitis Patient Disposition: Home, Self-Care Instructions: Hypomagnesemia (ED) Additional Instructions: Take 400mg of magnesium BID. Follow up with your primary care provider. Return to the emergency department immediately if your symptoms worsen or if you develop any dizziness, shortness of breath, difficulty breathing, chest pain, blurry vision, loss of vision, nausea, vomiting, abdominal pain, fever, chills, back pain, or any other complaints. Prescriptions: No Action amlodipine 10 mg tablet 10 mg PO DAILY amoxicillin-pot clavulanate [Augmentin] 500-125 mg tablet 1 tab PO BID Qty: 8 0RF magnesium oxide 400 mg magnesium capsule 400 mg PO BID Qty: 10 0RF Referrals: [facility] Family Medicine [Provider Group] (Call to establish and follow up with a primary care provider. If you already have a primary care provider, please follow up with them.) [facility] Primary [facility], [place] [Provider Group] (Call to establish and follow up with a primary care provider. If you already have a primary care provider, please follow up with them.) [facility] Primary Care,[place] [Provider Group] (Call to establish and follow up with a primary care provider. If you already have a primary care provider, please follow up with them.) [facility] [Provider Group] (Call to establish and follow up with an orthopedic provider. ) Stand Alone Forms: Work/School Release Interventions: ED Discharge Assessment Last Done: 03/10/23 14:14 Discharge Date/Time: 03/10/23 14:14 Print Language: Yoruba
[2023-03-10] MEDS: Magnesium Sulfate/H2O 2 GM/50 ML PIGGYBACK IV ×2 (09:15→10:47)
[2023-03-10 09:16] LABS: IDNOW Serial# BCCEAD1C; Influenza A Negative (Negative); Influenza B2 Negative (Negative)
[2023-03-10 09:16] LABS: COVID-19 Test Negative (Negative); IDNOW Serial# 08D9AD1C
[2023-03-10 11:28] LABS: Appearance Urine Clear; Color Urine Yellow; Glucose Urine UA Negative (Negative); Leukocyte Esterase Urine Negative (Negative); Nitrite Urine Negative (Negative); Specific Gravity - Urine 1.015 (1.005-1.025); UMIC TRIGGER UACC YES; Urine Blood Trace (Negative); Urine Ketones Negative (Negative); Urine Protein 100 (2+) mg/dL (Neg-Trace)
[2023-03-10 11:31] LABS: Bacteria Urine None Seen (None Seen); Hyaline Casts Urine 0-2 /LPF (0-2); RBC Urine 0-2 /HPF (0-2); Squamous Epithelial Cell Urine 0-2 /HPF (0-2); WBC Urine 0-5 /HPF (0-5)
[2023-03-10 13:58] LABS: Magnesium 2.2 mg/dL (1.6-2.6)
== END 2023-03-10 14:14 | disposition home or self-care (01) ==
PROVIDERS: Physician Assistant Medical; Emergency Provider Emergency Medicine; PCP Physician Assistant Medical
DX: E83.42 Hypomagnesemia (principal); M72.2 Plantar fascial fibromatosis; Z20.822 Contact with and (suspected) exposure to COVID-19; Z79.899 Other long term (current) drug therapy
CPT/HCPCS: 36415; 80053; 81001; 83735; 85025; 87502; 87635; 93005; 99284; J3475

== ENCOUNTER 2024-02-16 15:23 | Inpatient (IN) | payer OTHER, SELFPAY ==
--- NOTE | ~2024-02-16 | IR_ITS ---
CLINICAL HISTORY: Patient requires dialysis. The patient presents to interventional radiology for placement of a non-tunneled central venous catheter for hemodialysis. PROCEDURES: 1. Real-time ultrasound-guided access into the right internal jugular vein after documentation of selected vessel patency, and permanent imaging storing in the patient record. 2. Placement of a 12.0 fr 20 cm non-tunneled, dual-lumen hemodialysis catheter. Clinician: Favio Abebe PA-C MEDICATIONS: -Lidocaine 1% 10 mL SQ. -For additional details, please see nursing flowsheet. COMPLICATIONS: None. ESTIMATED BLOOD LOSS: <5 ml SPECIMENS: None FLUOROSCOPY TIME: 0.4 min DLP: 3 mGy-cm PROCEDURE NOTE: The procedure, risks, benefits, and alternatives were carefully explained to patient, and written informed consent was obtained. The patient was placed supine on the fluoroscopy table. A timeout was performed. The right neck and chest was prepped and draped in usual sterile fashion. Local anesthesia was administered to the access site with lidocaine. Under ultrasound guidance, the right internal jugular vein was accessed with a 4 Fr micropuncture set. A 0.035 in wire was advanced into the IVC. The tract in the vein was serially dilated. Over the wire, a 12.0 fr 20 non-tunneled, dual-lumen hemodialysis catheter was advanced, with the tip located at the cavoatrial junction. The wire was removed. The catheter was tested, flushed, and sutured to the skin. A permanent fluoroscopic image of the chest was saved to PACS. The catheter ports were packed with heparin per routine protocol. The patient was stable after the procedure and was transferred to the medical floor. There were no immediate complications. FINDINGS: 1. Patent right internal jugular vein. 2. Placement of a non-tunneled, dual-lumen hemodialysis catheter as above. 3. Catheter flushes and aspirates very well with a 10 mL syringe. No pneumothorax. IR/IR cvc insert non tunnel IMPRESSION: Placement of a non-tunneled hemodialysis catheter in the right internal jugular vein. PLAN: -The catheter may be used immediately. This procedure was performed by Favio Abebe PA-C, and directly supervised by Dr. Eller.
--- NOTE | ~2024-02-16 | CT_ITS ---
EXAMINATION: CT abdomen pelvis wo IV con CLINICAL INFORMATION: Reason for Exam lower abd pain, diarrhea COMPARISON: No prior CT available for comparison. TECHNIQUE: Multidetector volumetric imaging was performed from the superior aspect of the liver through the pubic symphysis , noncontrast CT Sagittal and coronal reformatted images were obtained on the technologist's workstation. This CT examination was performed using dose optimization techniques as appropriate, variously including the following: *Automated exposure control *Adjustment of mA and/or kV according to patient size (this includes techniques or standardized protocols for targeted exams where dose is matched to indication/reason for exam; i.e. extremities or head) *Use of iterative reconstruction technique DLP: 740 mGy-cm FINDINGS: LOWER THORAX: Included lung bases are clear. HEPATOBILIARY: No focal hepatic lesions. No biliary ductal dilatation. GALLBLADDER: Gallbladder unremarkable. SPLEEN: Spleen is normal in size. PANCREAS: No focal mass or ductal dilatation. STOMACH AND GASTROINTESTINAL TRACT: Stomach is grossly unremarkable. There is no bowel distention or thickening. Mild circumferential wall thickening and low attenuation of the cecum, nonspecific CT finding and could be sequela of chronic or prior colitis. Appendix is unremarkable normal in size. There is circumferential wall thickening and mild dilatation of the rectum refer image 80 series of 3, nonspecific CT finding and could be sequela of proctitis infection, inflammation versus neoplasm. Refer image 61 series 5. ADRENALS: No adrenal nodules. KIDNEYS/URETERS: There are few tiny bilateral nonobstructing kidney stones the largest 4 mm stone on the left side. No hydronephrosis. No renal mass. URINARY BLADDER: Partially decompressed. PELVIC VISCERA: Unremarkable PERITONEUM: No free air or fluid. LYMPH NODES: No lymphadenopathy. VASCULAR:Abdominal aorta normal in size, no aneurysm found. BONES, ABDOMINAL WALL AND SOFT TISSUES: Age-appropriate changes of the spine and skeletal system, no destructive osteolytic or osteosclerotic bone lesion found CT/CT abdomen pelvis wo IV con IMPRESSION: 1. There is circumferential wall thickening and mild dilatation of the rectum, nonspecific CT finding and could be sequela of proctitis infection, inflammation IBD Crohn's VERSUS NEOPLASM. Recommend GI consultation, consider further investigation with colonoscopy or barium enema. 2. Mild circumferential wall thickening and low attenuation of the cecum, nonspecific CT finding and could be sequela of chronic or prior colitis. 3. There are few tiny bilateral nonobstructing kidney stones the largest 4 mm stone on the left side. No hydronephrosis. (Referring physician staff is being called, by physician staff assistance, to be alerted of the above critical findings and recommendations.) 02/16/2024 8:09 PM AJ
--- NOTE | ~2024-02-16 | IR_ITS ---
Jayro removal Patient presents with a non-tunneled dialysis catheter. Patient no longer requires dialysis. Referring physician requests removal. The right neck suture was cut. The right neck catheter was removed entirely and pressure was held at the venotomy site. After hemostasis was obtained, a dry sterile dressing was applied. Patient tolerated the procedure well. IR/IR cvc remove any age Impression: Removal of temporary dialysis catheter This procedure was performed by Favio Abebe PA-C and supervised by Dr. Castrejon
[2024-02-16 16:09] VITALS: BP 127/93; PULSE 127; RESP 18; TEMP 37.8; O2SAT 99; BMI 34.2
--- NOTE | 2024-02-16 16:13 | ECG_ITS ---
Test Reason : abd pain Blood Pressure : / mmHG Vent. Rate : 127 BPM Atrial Rate : 127 BPM P-R Int : 154 ms QRS Dur : 084 ms QT Int : 308 ms P-R-T Axes : 040 076 -09 degrees QTc Int : [address] & T wave abnormality, consider inferior ischemia Abnormal ECG When compared with ECG of 10-MAR-2023 07:37, Vent. rate has increased BY 43 BPM T wave inversion now evident in Inferior leads Referred By: Femi Duran Electronically Signed By:SHANIQUA LEMUS MD
--- NOTE | 2024-02-16 16:14 | ED_ITS ---
HPI - General Adult General Chief complaint: Abdominal Pain Stated complaint: kidney infection? Time Seen by Provider: 02/16/24 18:30 Source: patient Mode of arrival: ambulatory Limitations: no limitations History of Present Illness HPI narrative: Patient comes to the emergency room complaining of diarrhea for 24 hours. Patient denies antibiotics, denies any vomiting. Patient reports a fever of 102.0 F at home, took Tylenol approximately at 13:00. Patient denies any blood in the stool. Denies any URI symptoms. Related Data Home Medications ?Medication ?Instructions ?Recorded ?Confirmed amlodipine 10 mg tablet 10 mg PO DAILY 03/06/23 03/06/23 Previous Rx's ?Medication ?Instructions ?Recorded amoxicillin 500 mg-potassium 1 tab PO BID #8 tabs 03/08/23 clavulanate 125 mg tablet (Augmentin) magnesium oxide 400 mg PO BID #10 caps 03/08/23 Allergies Allergy/AdvReac Type Severity Reaction Status Date / Time No Known Allergies Allergy Verified 02/16/24 16:12 Review of Systems 2 Review of Systems: Constitutional : No Weight loss, No Fever, No Chills, No Night Sweats, No Fatigue, No Malaise ENT/Mouth : No Hearing loss, No Ear Pain, No Nasal Congestion, No Sinus Pain, No Hoarseness, No sore throat, No Rhinorrhea, No Swallowing Difficulty Eyes: No Eye Pain, No Swelling, No Redness, No Foreign Body, No Discharge, No Vision Changes Cardiovascular : No Chest Pain, No SOB, No Dyspnea on Exertion, No Orthopnea, No Edema, No Palpitations Respiratory : No Cough, No Sputum, No Wheezing, No Smoke Exposure, No Dyspnea Gastrointestinal : No Nausea, No Vomiting, complaining of copious Diarrhea, No Constipation, No abdominal Pain, No Hematochezia, No Melena Genitourinary : no irregular bleeding, No Dysuria, No Urinary Frequency, No Hematuria, No Urinary Incontinence, No Urgency, No Flank Pain, No Urinary Flow Changes, No Hesitancy Musculoskeletal : No joint pain, No Myalgias, No Joint Swelling Skin : No Skin Lesions, No rash Neuro : No Weakness, No Numbness, No Paresthesias, No Loss of Consciousness, No Dizziness, No Headache Psych : No Anxiety/Panic, No Depression, No SI/HI/AH/VH, No Social Issues, Heme/Lymph: No Bruising, No Bleeding,No Lymphadenopathy Endocrine : No Polyuria, No Polydipsia, No Temperature Intolerance [facility] Past Medical History Medical History Anxiety Family History Family History Mother No problems noted. Father No problems noted. Social History Social History Household Members: Significant Other Housing: House Do you presently have visiting nurse or other home services: No Alcohol intake: current Alcohol intake frequency: 0-2 drinks per day Alcohol type: beer Patient Tobacco Use Status: Current everyday Tobacco user Tobacco use type: Cigarette Cigarette Packs Per Day: 0.5 Cigarettes Per Day: 10.0 Smoked in Last 30 Days: Yes Use of substances other than those prescribed or required for medical reasons: No Advance Directives: No Advance Directives Information Provided: No Do you have a plan to hurt others: No Plan service: No Current occupational status: employed 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 Oriented X3. No acute distress. Eyes: Pupils equal, round and reactive to light. ENT: Pharynx normal. Dry oral mucosa Neck: Normal inspection. Neck supple. No lymph nodes noted. No crepitus CVS: Normal heart rate and rhythm. Pulses normal. Normal S1 and S2 Respiratory: No respiratory distress. Breath sounds normal. No Wheezing. No rales Abdomen: Soft and nontender. No rigidity. No distention. Skin: Skin warm and dry. Normal skin color. Normal skin turgor. Extremities: No lower extremity edema. No Lacerations. No Rash Neuro: Oriented X 3. No motor deficit. No sensory deficit. Moving all extremities. No slurred speech. CN 2 through 12 grossly intact Psych: calm, cooperative, normal affect Course Course Course Narrative: RME: Triage done by REJI De Luna. Patient presents to the ED for profuse diarrhea since last night. Patient states every time he drinks water he has diarrhea. Patient feels dehydrated. Patient states last year he was admitted for acute kidney injury from severe diarrhea and also had bacteria in his stool. labs ordered. Medications Administered Generic Name Dose Route Start Last Admin Trade Name Freq PRN Reason Stop Dose Admin Acetaminophen 650 mg 02/17/24 03:28 02/17/24 04:29 Acetaminophen 325 Mg Tablet PO 650 mg Q6H PRN Administration Fever, Headache, Pain 1-3 Sodium Chloride 1,000 mls @ 125 mls/hr 02/17/24 03:45 02/17/24 04:24 Ns IVCONT 125 mls/hr .Q8H ROSALINA Administration Metronidazole 500 mg in 100 mls @ 100 mls/hr 02/17/24 06:00 02/17/24 07:16 Flagyl IV 100 mls/hr Q8H ROSALINA Administration Sodium Chloride 3 ml 02/17/24 08:00 02/17/24 07:21 0.9 % Sodium Chloride Flush 3 Ml Syringe IVFLUSH 3 ml QSHIFT ROSALINA Administration Discontinued Medications Generic Name Dose Route Start Last Admin Trade Name Freq PRN Reason Stop Dose Admin Acetaminophen 975 mg 02/16/24 20:11 02/16/24 20:16 Acetaminophen 325 Mg Tablet PO 02/16/24 20:12 975 mg ONCE ONE Administration Sodium Chloride 2,000 mls @ 999 mls/hr 02/16/24 18:42 02/16/24 22:09 Ns IVCONT 02/16/24 20:42 Infused .Q2H1M ONE Infusion Levofloxacin 500 mg in 100 mls @ 100 mls/hr 02/16/24 21:19 02/16/24 23:05 Levaquin IV 02/16/24 22:18 Infused ONCE ONE Infusion Metronidazole 500 mg in 100 mls @ 100 mls/hr 02/16/24 21:19 02/16/24 23:45 Flagyl IV 02/16/24 22:18 Infused ONCE ONE Infusion Loperamide HCl 4 mg 02/16/24 18:42 02/16/24 19:25 Loperamide Hcl 2 Mg Capsule PO 02/16/24 18:43 4 mg ONCE ONE Administration Potassium Chloride 60 meq 02/16/24 20:19 02/16/24 20:32 Potassium Chloride Packet 20 Meq Packet PO 02/16/24 20:20 60 meq ONCE ONE Administration Vancomycin HCl 125 mg 02/17/24 00:53 02/17/24 01:32 Vancomycin Hcl 125 Mg Capsule PO 02/17/24 00:54 125 mg ONCE ONE Administration Medical Decision Making Medical Decision Making [facility] Narrative: -patient has no significant abdominal pain. However, patient has gone to the bathroom multiple times, watery diarrhea. -my interpretation of labs, white blood cell count 15.4, potassium 3.0, creatinine 2.49, baseline 1.26. -patient was repleted with p.o. potassium and was given 2 L of normal saline -my interpretation of CT: No obvious SBO , per radiology report: Possible proctitis, versus Crohn's inflammation, versus neoplasm. Patient will likely need a colonoscopy wants inflammation improves. Patient needs a GI consult. -patient was started on IV antibiotics, levofloxacin and metronidazole -repeat chemistry after potassium and saline, patient's potassium improved, 3.7, creatinine bit worse, increased to 3.3. -patient was able to give us a stool sample, patient's C diff gene is positive, toxin negative. I discussed the patient with , pt being admittted. Patient will be started on p.o. vancomycin Differential Diagnosis Differential Diagnoses: The differential diagnosis associated with the presentation includes (Colitis, proctitis, gastroenteritis, C diff) Admission/Observation Consideration of admission/observation: Escalation of care including admission/observation considered Consult Healthcare Provider Management of the patient was discussed with: Hospitalist Lab Data [facility] Lab Attestation statement: I reviewed the patient's lab results. 02/17/24 05:11 02/17/24 05:11 Labs: Lab Results 02/16/24 02/16/24 Range/Units 16:40 21:32 WBC 15.4 H (4.8-10.8) X10*3/uL RBC 5.02 D (4.60-5.80) X10*6/uL Hgb 16.8 D (14.0-18.0) g/dl Hct 46.7 D (42.0-52.0) % MCV 93.0 (80.0-98.0) fL MCH 33.5 H (27.0-33.0) pg MCHC 36.0 (31.0-36.0) g/dl RDW 12.9 (11.0-16.0) % Plt Count 289 (160-400) X10*3/uL MPV 9.2 L (9.4-12.4) fL Immature Gran % (Auto) 0.5 H (0.0-0.4) % Neut % (Auto) 84.9 H (45-73) % Lymph % (Auto) 6.7 L (20-40) % Benson % (Auto) 7.6 (2-11) % Eos % (Auto) 0.0 (0-4) % Baso % (Auto) 0.3 (0-2) % Lymph # (Auto) 1.0 L (1.2-4.9) X10*3/uL Benson # (Auto) 1.2 (0.1-1.2) X10*3/uL Eos # (Auto) 0.0 (0.0-0.4) X10*3/uL Baso # (Auto) 0.1 (0.0-0.2) X10*3/uL Abs Immat Gran (auto) 0.07 H (0.00-0.03) X10*3/uL Absolute Neuts (auto) 13.1 H (2.0-8.3) x10*3/uL Absolute Nucleated RBC 0.000 (0.0-0.012) X10*3/uL Nucleated RBC % (auto) 0.0 (0.0-0.2) /100WBC PT 11.5 (11.1-13.3) SEC INR 0.9 (0.9-1.1) APTT 43.5 H (26.0-36.8) SEC Sodium 134 L 135 (135-145) mmol/L Potassium 3.0 L 3.7 D (3.3-5.1) mmol/L Chloride 99 106 (96-108) mmol/L Carbon Dioxide 16 L 12 L (22-29) mmol/L Anion Gap 22 H 21 H (12-20) BUN 18 H 20 H (9-16) mg/dL Creatinine 2.49 H 3.33 H (0.5-1.4) mg/dL Estim Creat Clear Calc 43.3 32.4 Estimated GFR 28 20 Random Glucose 112 107 (60-115) mg/dL Calcium 10.5 H D 9.0 D (8.4-10.2) mg/dL Magnesium 1.7 (1.6-2.6) mg/dL Total Bilirubin 0.9 (0.0-1.0) mg/dL AST 31 (5-37) U/L ALT 12 (0-40) U/L Alkaline Phosphatase 142 H (39-117) U/L Troponin I High Sens 2.7 (<3.5-35.0) ng/L Total Protein 9.8 H (6.5-8.0) g/dL Albumin 5.4 H (3.5-5.0) g/dL Urine Color Dark Yellow Urine Appearance Turbid Urine pH 5.0 (5.0-9.0) Ur Specific [place] >= 1.030 H (1.005-1.025) Urine Protein >=1000 (4+) H (Neg-Trace) mg/dL Urine Glucose (UA) 100 H (Negative) mg/dL Urine Ketones Trace (Negative) mg/dL Urine Blood Moderate (2+) H (Negative) Urine Nitrite Negative (Negative) Ur Leukocyte Esterase Negative (Negative) Urine RBC 0-2 (0-2) /HPF Urine WBC 6-10 H (0-5) /HPF Ur Squamous Epith Cells >20 (0-2) /HPF Urine Bacteria Trace (None Seen) Hyaline Casts >20 (0-2) /LPF C. difficile Tox B Gene POSITIVE A* (Negative) C. difficile Toxin A&B Negative (Negative) C. difficile Interpret SEE NOTE Influenza Type A (PCR) NEGATIVE (Negative) Influenza Type B (PCR) NEGATIVE (Negative) RSV RNA Qual (PCR) NEGATIVE (Negative) SARS-CoV-2 RNA (RT-PCR) NEGATIVE (Negative) Independent Interpretation I performed an independent interpretation of an: CT Scan Radiology Impression Discussion of test interpretation with radiology: I have reviewed the radiologist's reading. Radiologist Impression: FINDINGS: LOWER THORAX: Included lung bases are clear. HEPATOBILIARY: No focal hepatic lesions. No biliary ductal dilatation. GALLBLADDER: Gallbladder unremarkable. SPLEEN: Spleen is normal in size. PANCREAS: No focal mass or ductal dilatation. STOMACH AND GASTROINTESTINAL TRACT: Stomach is grossly unremarkable. There is no bowel distention or thickening. Mild circumferential wall thickening and low attenuation of the cecum, nonspecific CT finding and could be sequela of chronic or prior colitis. Appendix is unremarkable normal in size. There is circumferential wall thickening and mild dilatation of the rectum refer image 80 series of 3, nonspecific CT finding and could be sequela of proctitis infection, inflammation versus neoplasm. Refer image 61 series 5. ADRENALS: No adrenal nodules. KIDNEYS/URETERS: There are few tiny bilateral nonobstructing kidney stones the largest 4 mm stone on the left side. No hydronephrosis. No renal mass. URINARY BLADDER: Partially decompressed. PELVIC VISCERA: Unremarkable PERITONEUM: No free air or fluid. LYMPH NODES: No lymphadenopathy. VASCULAR:Abdominal aorta normal in size, no aneurysm found. BONES, ABDOMINAL WALL AND SOFT TISSUES: Age-appropriate changes of the spine and skeletal system, no destructive osteolytic or osteosclerotic bone lesion found CT/CT abdomen pelvis wo IV con IMPRESSION: 1. There is circumferential wall thickening and mild dilatation of the rectum, nonspecific CT finding and could be sequela of proctitis infection, inflammation IBD Crohn's VERSUS NEOPLASM. Recommend GI consultation, consider further investigation with colonoscopy or barium enema. 2. Mild circumferential wall thickening and low attenuation of the cecum, nonspecific CT finding and could be sequela of chronic or prior colitis. 3. There are few tiny bilateral nonobstructing kidney stones the largest 4 mm stone on the left side. No hydronephrosis. (Referring physician staff is being called, by physician staff assistance, to be alerted of the above critical findings and recommendations.) Independent Historian Clinical information obtained from an independent historian. History obtained from or confirmed by: Spouse Critical Care Time Critical Care Time Critical Care Time: Yes Total Critical Care Time: 75 Attestation: I have personally provided critical care time. Time includes review of lab data, radiology results, discussion with consultants, and monitoring for potential decompensation. Intervention performed as documented. Discharge Plan Discharge Clinical Impression: C. difficile colitis, Acute dehydration Acute renal failure Qualifiers: Acute renal failure type: unspecified Qualified Code(s): N17.9 - Acute kidney failure, unspecified Patient Disposition: Admitted As Inpatient
[2024-02-16 16:50] LABS: MANUAL DIFF FLAG NO
[2024-02-16 16:59] LABS: INTERNATIONAL NORM RATIO 0.9 (0.9-1.1); Prothrombin Time 11.5 SEC (11.1-13.3)
[2024-02-16 17:02] LABS: Partial Thromboplastin Time 43.5 SEC (26.0-36.8)
[2024-02-16 17:07] LABS: Basophils Absolute Auto 0.1 X10*3/uL (0.0-0.2); Basophils Percent Auto 0.3 % (0-2); Hematocrit 46.7 % (42.0-52.0); Hemoglobin 16.8 g/dl (14.0-18.0); Imm Gran Abs Auto 0.07 X10*3/uL (0.00-0.03); Imm Gran Pct Auto 0.5 % (0.0-0.4); Lymphocytes Percent Auto 6.7 % (20-40); Mean Corpuscular Hemoglobin 33.5 pg (27.0-33.0); Mean Platelet Volume 9.2 fL (9.4-12.4); Monocytes Absolute Auto 1.2 X10*3/uL (0.1-1.2); Monocytes Percent Auto 7.6 % (2-11); Neutrophils Absolute Auto 13.1 x10*3/uL (2.0-8.3); Neutrophils Percent Auto 84.9 % (45-73); Platelet Count 289 X10*3/uL (160-400); Red Blood Count 5.02 X10*6/uL (4.60-5.80); Red Cell Distribution Width 12.9 % (11.0-16.0); White Blood Count 15.4 X10*3/uL (4.8-10.8)
[2024-02-16 17:11] LABS: Alanine Aminotransferase 12 U/L (0-40); Albumin Level 5.4 g/dL (3.5-5.0); Alkaline Phosphatase 142 U/L (39-117); Anion Gap 22 (12-20); Aspartate Amino Transferase 31 U/L (5-37); Bilirubin Total 0.9 mg/dL (0.0-1.0); Blood Urea Nitrogen 18 mg/dL (9-16); Calcium 10.5 mg/dL (8.4-10.2); Carbon Dioxide 16 mmol/L (22-29); Chloride 99 mmol/L (96-108); Creatinine Clr Calc Pharmacy 43.3; Estimated Glomerular Filt Rate 28; Glucose Random 112 mg/dL (60-115); Magnesium 1.7 mg/dL (1.6-2.6); Sodium 134 mmol/L (135-145); Total Protein 9.8 g/dL (6.5-8.0)
[2024-02-16 17:14] LABS: Troponin-I High Sensitivity 2.7 ng/L (<3.5-35.0)
[2024-02-16 17:41] LABS: Influenza A PCR NEGATIVE (Negative); Influenza B PCR NEGATIVE (Negative); Resp Syncy Virus RNA Qual PCR NEGATIVE (Negative); SARS COV2 PCR INHOUSE NEGATIVE (Negative)
[2024-02-16 18:15] VITALS: BP 120/83; PULSE 122; RESP 18; TEMP 37.3; O2SAT 98
--- NOTE | 2024-02-16 18:32 | PC.NURSE ---
Patient reports has not been able to void since yesterday, attempted to bladder scan patient however unable to visualize bladder to obtain amount of mls in bladder.
[2024-02-16] MEDS: Loperamide HCl 2 MG CAPSULE 4 MG PO (19:25)
[2024-02-16] MEDS: 0.9 % Sodium Chloride 2,000 ML 999 ML IVCONT (19:26)
[2024-02-16] MEDS: Acetaminophen 325 MG TABLET 975 MG PO (20:16)
--- NOTE | 2024-02-16 20:18 | PC.NURSE ---
pt c/o DONNELLY - medication administered per provider order. effectiveness pending. CT results still pending at this time. plan of care ongoing. call gómez placed within reach.
[2024-02-16] MEDS: Potassium Chloride Packet 20 MEQ PACKET 60 MEQ PO (20:32)
[2024-02-16 21:33] VITALS: BP 124/67; PULSE 113; RESP 18; TEMP 37.3; O2SAT 98
[2024-02-16 21:45] LABS: Appearance Urine Turbid; Color Urine Dark Yellow; Glucose Urine UA 100 mg/dL (Negative); Leukocyte Esterase Urine Negative (Negative); Nitrite Urine Negative (Negative); Specific Gravity - Urine >= 1.030 (1.005-1.025); UMIC TRIGGER UACC YES; Urine Blood Moderate (2+) (Negative); Urine Ketones Trace mg/dL (Negative); Urine Protein >=1000 (4+) mg/dL (Neg-Trace)
[2024-02-16 22:01] LABS: Anion Gap 21 (12-20); Blood Urea Nitrogen 20 mg/dL (9-16); Carbon Dioxide 12 mmol/L (22-29); Chloride 106 mmol/L (96-108); Creatinine Clr Calc Pharmacy 32.4; Estimated Glomerular Filt Rate 20; Glucose Random 107 mg/dL (60-115); Potassium 3.7 mmol/L (3.3-5.1); Sodium 135 mmol/L (135-145)
[2024-02-16] MEDS: levoFLOXacin/D5W 500 MG/100 ML PIGGYBACK 100 MG IV (22:03)
[2024-02-16 22:04] LABS: Bacteria Urine Trace (None Seen); Hyaline Casts Urine >20 /LPF (0-2); RBC Urine 0-2 /HPF (0-2); Squamous Epithelial Cell Urine >20 /HPF (0-2); UACC Culture Trigger YES
[2024-02-16] MEDS: metroNIDAZOLE/NS 500 MG/100 ML PIGGYBACK 100 MG IV (22:40)
[2024-02-16 23:17] LABS: CDiff Gene PCR POSITIVE (Negative)
[2024-02-17] VITALS (7 sets, daily range): BP systolic 105–131; BP diastolic 48–87; PULSE 107–119; RESP 16–24; TEMP 36.5–39.4; O2SAT 97–99
--- NOTE | 2024-02-17 00:03 | PC.NURSE ---
Pt ambulated to the restroom with a steady gait. Pts family at bedside. Plan of care ongoing.
[2024-02-17 00:04] LABS: CDIFF Internal ctrl Dots and bkg OK (V); CDiff Toxin Negative (Negative)
[2024-02-17] MEDS: vancomycin HCL 125 MG CAPSULE PO ×3 (01:32→12:55)
--- NOTE | 2024-02-17 01:37 | PC.NURSE ---
Pt medicated per [facility] Plan of care ongoing.
--- NOTE | 2024-02-17 04:11 | P.HPHOSP_ITS ---
History of Present Illness Date of Service: 02/17/24 Attending physician on admission: Shin Norman Chief Complaint: Diarrhea Osiel Layton is a 44 years old man with past medical history significant for essential hypertension on amlodipine presents to the emergency department complaining of multiple events of nonbloody diarrhea that started Thursday known associated with crampy generalized abdominal pain. Denied vomiting. He also complained of fevers, mild head and generalized malaise. He also denied pain with urination but has been urinating less quantity. He mentioned that about early January of this he took a course of Augmentin X7 days for tooth infection. On March 2023, he was hospitalized with similar symptoms (diarrhea X1 week). At that time he also developed AYSE and was taking lisinopril. He received total 4 L of IV fluids, was subsequently placed on a bicarb drip and evaluated by Nephrology Service. His abdominal pelvis CT scan at that time showed likely enteritis viral versus bacterial infection. In ED today, he was found to have fever of 100.1 and sinus tachycardia. There is no hypotension. Blood workup was remarkable for leukocytosis of 15.4. Hemoglobin and platelets are normal. There is no lactic acidosis. Hyponatremia and hypokalemia resolved. Bicarb is 12. Creatinine is 3.33 Venous pH is normal. LFTs are normal except for slight elevation of alk-phos. Troponin is negative. C diff gene PCR positive and C diff toxin a and B negative toxin. Abdomen pelvis CT scan showed findings that could be related to sequela of proctitis, infection, inflammation, IBD Crohn's versus neoplasm, chronic or prior colitis, nonobstructive renal calculi on the left side without with a hydronephrosis. ED tx: NS 2 L bolus, Imodium 4 mg p.o., acetaminophen 975 mg p.o., potassium 60 mEq p.o., Levaquin 500 mg IV, Flagyl 500 mg IV, vancomycin 125 mg PO. Review of Systems 2 Review of Systems: All 12 systems were reviewed and normal except as noted in HPI. [facility] Medical History Anxiety Family History Mother No problems noted. Father No problems noted. Social History Household Members: Significant Other Housing: House Do you presently have visiting nurse or other home services: No Alcohol intake: current Alcohol intake frequency: 0-2 drinks per day Alcohol type: beer Patient Tobacco Use Status: Current everyday Tobacco user Tobacco use type: Cigarette Cigarette Packs Per Day: 0.5 Cigarettes Per Day: 10.0 Smoked in Last 30 Days: Yes Use of substances other than those prescribed or required for medical reasons: No Advance Directives: No Advance Directives Information Provided: No Do you have a plan to hurt others: No Plan service: No Current occupational status: employed 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 [employer] Allergies Allergy/AdvReac Type Severity Reaction Status Date / Time No Known Allergies Allergy Verified 02/16/24 16:12 Active Medications: Current Medications Acetaminophen (Acetaminophen 325 Mg Tablet) 650 mg PO Q6H PRN PRN Reason: Fever, Headache, Pain 1-3 Heparin Sodium (Porcine) (Heparin Sodium,Porcine 5,000 Unit/Ml Vial) 5,000 unit SUBCUT Q8H [facility] Sodium Chloride (Ns) 1,000 mls @ 125 mls/hr IVCONT .Q8H [facility] Melatonin (Melatonin 3 Mg Tablet) 6 mg PO BEDTIME PRN PRN Reason: Insomnia Ondansetron HCl (Ondansetron Hcl 4 Mg/2 Ml Vial) 4 mg IVPUSH Q8H PRN PRN Reason: Nausea and Vomiting Sodium Chloride (0.9 % Sodium Chloride Flush 3 Ml Syringe) 3 ml IVFLUSH QSHIFT [facility] Vancomycin HCl (Vancomycin Hcl 125 Mg Capsule) 125 mg PO QID [facility] Home Medications ?Medication ?Instructions ?Recorded ?Confirmed ?Last Taken ?Type amlodipine 10 mg tablet 10 mg PO DAILY 03/06/23 03/06/23 03/06/23 History Physical Exam 2 Vital Signs and Narrative: Vital Signs: Last Vital Signs Temp 97.7 F 02/17/24 01:36 Pulse 114 H 02/17/24 01:36 Resp 16 02/17/24 01:36 BP 131/87 02/17/24 01:36 Pulse Ox 99 02/17/24 01:36 O2 Del Method Room Air 02/17/24 01:36 BMI result Body Mass Index 34.2 Constitutional - Awake and Alert, No apparent distress. Acutely ill appearance. Pleasant. Cooperative HEENT - Pupils equally round. Normal scleara. Dry oral mucosa Heart - S1S2, RRR. Lungs - Normal lung expansion, Normal respiratory effort, No respiratory distress, CTA bilaterally Abdomen - NT / ND; increased BS; No rebound or guarding Extremities - No calf tenderness bilaterally, no swelling. Musculoskeletal - Normal inspection, normal ROM Skin - Warm/Dry Neurological - Alert & oriented x3. No focal weakness grossly noted. Normal speech. Psychological - Appropriate affect Results Labs 02/17/24 05:11 02/17/24 05:11 Labs: Laboratory Results - last 24 hr 02/16/24 02/16/24 16:40 21:32 MCV 93.0 MCH 33.5 H MCHC 36.0 RDW 12.9 Plt Count 289 MPV 9.2 L Immature Gran % (Auto) 0.5 H Neut % (Auto) 84.9 H Lymph % (Auto) 6.7 L Mccone % (Auto) 7.6 Eos % (Auto) 0.0 Baso % (Auto) 0.3 Lymph # (Auto) 1.0 L Mccone # (Auto) 1.2 Eos # (Auto) 0.0 Baso # (Auto) 0.1 Abs Immat Gran (auto) 0.07 H Absolute Neuts (auto) 13.1 H Absolute Nucleated RBC 0.000 Nucleated RBC % (auto) 0.0 PT 11.5 INR 0.9 APTT 43.5 H Anion Gap 22 H 21 H Estim Creat Clear Calc 43.3 32.4 Estimated GFR 28 20 Random Glucose 112 107 Calcium 10.5 H D 9.0 D Magnesium 1.7 Total Bilirubin 0.9 AST 31 ALT 12 Alkaline Phosphatase 142 H Troponin I High Sens 2.7 Total Protein 9.8 H Albumin 5.4 H Urine Color Dark Yellow Urine Appearance Turbid Urine pH 5.0 Ur Specific [place] >= 1.030 H Urine Protein >=1000 (4+) H Urine Glucose (UA) 100 H Urine Ketones Trace Urine Blood Moderate (2+) H Urine Nitrite Negative Ur Leukocyte Esterase Negative Urine RBC 0-2 Urine WBC 6-10 H Ur Squamous Epith Cells >20 Urine Bacteria Trace Hyaline Casts >20 C. difficile Tox B Gene POSITIVE A* C. difficile Toxin A&B Negative C. difficile Interpret SEE NOTE Influenza Type A (PCR) NEGATIVE Influenza Type B (PCR) NEGATIVE RSV RNA Qual (PCR) NEGATIVE SARS-CoV-2 RNA (RT-PCR) NEGATIVE Imaging Radiologist's Impressions: Impressions Abdomen/Pelvis CT 02/16/24 18:42 IMPRESSION: 1. There is circumferential wall thickening and mild dilatation of the rectum, nonspecific CT finding and could be sequela of proctitis infection, inflammation IBD Crohn's VERSUS NEOPLASM. Recommend GI consultation, consider further investigation with colonoscopy or barium enema. 2. Mild circumferential wall thickening and low attenuation of the cecum, nonspecific CT finding and could be sequela of chronic or prior colitis. 3. There are few tiny bilateral nonobstructing kidney stones the largest 4 mm stone on the left side. No hydronephrosis. (Referring physician staff is being called, by physician staff assistance, to be alerted of the above critical findings and recommendations.) 02/16/2024 8:09 PM AJ Assessment and Plan (1) Acute renal failure: Qualifiers: Acute renal failure type: unspecified Qualified Code(s): N17.9 - Acute kidney failure, unspecified Status: Acute (2) Enteritis: Status: Acute (3) Acute dehydration: Status: Acute (4) Metabolic acidosis: Status: Acute Plan Osiel Layton is a 44 years old man w/ PMHx significant for prior hospitalization due to AYSE and diarrhea presents to the hospital today with: * Acute kidney injury likely secondary to volume depletion due to diarrhea (+ Rhabdomyolysis? Glomerulonephritis? -UA shows moderate blood but urine RBC only 0-2, WBC 6-10, proteinuria 4+, transaminases are normal). Admit to hospitalist service. Continue IV fluids. Check Total CK. Avoid nephrotoxic agents nephrology consult for further recommendations. * Diarrhea likely infectious. C diff? NAAT results to confirm C. diff infection are still pending. Continue contact precautions. Continue empiric therapy with vancomycin moderate 25 mg PO QID. GI panel, stool is pending. ID consult. * Hyponatremia likely secondary to dehydration/diarrhea. Continue IV fluids. Continue to monitor Na+ level. * High anion gap metabolic acidosis; AG is normal now. Bicarb is 11, but normal pH (7.38). Likely mixed disorder (metabolic alkalosis + metabolic acidosis) due to AYSE and diarrhea. * Abnormal abdomen and pelvis CT scan: Proctitis, inflammation, IBD vs neoplasm, chronic or prior colitis. Continue empiric IV antibiotic therapy with ceftriaxone and Flagyl. GI consult. * Essential hypertension. Hold amlodipine due to soft BP. Code status: Full DVT prophylaxis: Heparin Patient will need hospitalization for at least 2 midnights for AYSE and diarrhea therapy with IV fluids and evaluation by different subspecialties. Patient also will need close monitoring of blood workup and vital signs. Quality Stroke Does the patient have a stroke diagnosis?: No VTE Prior VTE?: No VTE Risk Level:: Medical - moderate - high VTE Device Contraindication: Treatment Not Indicated VTE Drug Contraindication: N/A - Med Ordered
[2024-02-17] MEDS: 0.9 % Sodium Chloride 1,000 ML 125 ML IVCONT ×2 (04:24→12:58)
--- NOTE | 2024-02-17 04:27 | PC.NURSE ---
IV fluids started. pt requesting tylenol and water for a headache.
[2024-02-17] MEDS: Acetaminophen 325 MG TABLET 650 MG PO ×3 (04:29→20:00)
[2024-02-17 05:18] LABS: Venous Blood Gas Refer to POC result
[2024-02-17 05:21] LABS: VBG Base Excess -11.1 mmol/L; VBG HCO3 11 mmol/L (22-26); VBG pCO2 18 mmHg; VBG pH 7.38 (7.32-7.43); VBG pO2 111 mmHg
[2024-02-17 05:27] LABS: Lactic Acid 0.5 mmol/L (0.5-2.0)
[2024-02-17 05:31] LABS: MANUAL DIFF FLAG NO
[2024-02-17 05:32] LABS: Basophils Absolute Auto 0.1 X10*3/uL (0.0-0.2); Basophils Percent Auto 0.5 % (0-2); Eosinophils Absolute Auto 0.1 X10*3/uL (0.0-0.4); Eosinophils Percent Auto 0.4 % (0-4); Hematocrit 41.3 % (42.0-52.0); Hemoglobin 14.4 g/dl (14.0-18.0); Imm Gran Abs Auto 0.08 X10*3/uL (0.00-0.03); Imm Gran Pct Auto 0.6 % (0.0-0.4); Lymphocytes Absolute Auto 0.7 X10*3/uL (1.2-4.9); Lymphocytes Percent Auto 4.9 % (20-40); Mean Corpuscular HGB Conc 34.9 g/dl (31.0-36.0); Mean Corpuscular Volume 94.5 fL (80.0-98.0); Mean Platelet Volume 9.2 fL (9.4-12.4); Monocytes Absolute Auto 1.2 X10*3/uL (0.1-1.2); Monocytes Percent Auto 8.4 % (2-11); Neutrophils Absolute Auto 12.1 x10*3/uL (2.0-8.3); Neutrophils Percent Auto 85.2 % (45-73); Platelet Count 239 X10*3/uL (160-400); Red Blood Count 4.37 X10*6/uL (4.60-5.80); White Blood Count 14.1 X10*3/uL (4.8-10.8)
[2024-02-17 05:58] LABS: Alanine Aminotransferase 8 U/L (0-40); Albumin Level 4.6 g/dL (3.5-5.0); Alkaline Phosphatase 118 U/L (39-117); Anion Gap 20 (12-20); Aspartate Amino Transferase 24 U/L (5-37); Bilirubin Total 0.5 mg/dL (0.0-1.0); Blood Urea Nitrogen 26 mg/dL (9-16); Calcium 9.2 mg/dL (8.4-10.2); Carbon Dioxide 11 mmol/L (22-29); Chloride 104 mmol/L (96-108); Creatinine Clr Calc Pharmacy 24.6; Estimated Glomerular Filt Rate 15; Glucose Random 105 mg/dL (60-115); Magnesium 1.6 mg/dL (1.6-2.6); Phosphorus 6.2 mg/dL (2.7-4.5); Potassium 3.4 mmol/L (3.3-5.1); Sodium 132 mmol/L (135-145); Total Protein 8.2 g/dL (6.5-8.0)
[2024-02-17] MEDS: metroNIDAZOLE/NS 500 MG/100 ML PIGGYBACK 100 MG IV ×2 (07:16→14:42)
[2024-02-17] MEDS: 0.9 % Sodium Chloride Flush 3 ML SYRINGE IVFLUSH (07:21)
[2024-02-17] MEDS: Heparin Sodium,Porcine 5,000 UNIT/ML VIAL 5000 UNIT SUBCUT (08:53)
[2024-02-17] MEDS: cefTRIAXone sodium 1 GM in 0.9 % Sodium Chloride 50 ML IV (08:56)
[2024-02-17 09:49] LABS: Adenovirus F 40/41 Not Detected (Not Detect.); Astrovirus Not Detected (Not Detect.); Campylobacter Not Detected (Not Detect.); Cryptosporidium Not Detected (Not Detect.); Cyclospora cayetanensis Not Detected (Not Detect.); E. coli EAEC Not Detected (Not Detect.); E. coli EPEC Not Detected (Not Detect.); E. coli ETEC Not Detected (Not Detect.); E. coli STEC Not Detected (Not Detect.); Entamoeba histolytica Not Detected (Not Detect.); Giardia lamblia Not Detected (Not Detect.); Norovirus GI/GII Not Detected (Not Detect.); Plesiomonas shigelloides Not Detected (Not Detect.); Rotavirus A Not Detected (Not Detect.); Sapovirus Not Detected (Not Detect.); Shigella sp./EIEC Not Detected (Not Detect.); Vibrio Not Detected (Not Detect.); Vibrio Cholerae Not Detected (Not Detect.); Yersinia enterocolitica Not Detected (Not Detect.)
[2024-02-17 11:19] LABS: Salmonella Detected (Not Detect.)
--- NOTE | 2024-02-17 11:38 | MHC.CM.PN ---
Met with patient and , Jeanine in regards to discharge planning. Patient lives with Jeanine, ambulates independently and had no services prior to coming to the hospital. No services anticipated to be needed because patient is not homebound. PCP verified. HCP completed, signed and witnessed. Original given to patient. Copy placed in chart. Jeanine will tranpsort patient home when medically stable. Continue to monitor for d/c needs.
--- NOTE | 2024-02-17 11:40 | PHA.MEDREC ---
Pharmacy Consult ? Medication Reconciliation Pharmacy has completed the medication reconciliation. Spoke with Patient and confirmed medicationson list.
--- NOTE | 2024-02-17 11:46 | PC.NURSE ---
Pt placed in hospital bed for comfort.
--- NOTE | 2024-02-17 13:44 | PM.EVENT ---
Event Note Date of Service: 02/17/24 Event Note: Osiel Layton is a 44 years old man w/ PMHx significant for prior hospitalization due to AYSE and diarrhea presents to the hospital today with: Acute kidney injury/ATN likely secondary to volume depletion due to diarrhea . Continue IV fluids. Total CK>33. Avoid nephrotoxic agents nephrology consult> ATN continue Iv fluids with D5W, bicarb @ 100/hr Cdiff Diarrhea, salmonella Continue contact precautions. Continue empiric therapy with vancomycin moderate 25 mg PO QID. GI panel >salmonella positve ID consult pending . Hyponatremia likely secondary to dehydration/diarrhea. Continue IV fluids. Continue to monitor Na+ level. High anion gap metabolic acidosis AG closed Likely mixed disorder (metabolic alkalosis + metabolic acidosis) due to AYSE and diarrhea. Bicarb is 11, but normal pH (7.38). IV bicarb added Abnormal abdomen and pelvis CT scan Proctitis, inflammation, IBD vs neoplasm, chronic or prior colitis. Continue empiric IV antibiotic therapy with ceftriaxone and Flagyl. GI consult pending . Essential hypertension. Hold amlodipine due to soft BP. Code status: Full DVT prophylaxis: Heparin Patient will need hospitalization for at least 2 midnights for AYSE and diarrhea therapy with IV fluids and evaluation by different subspecialties. Patient also will need close monitoring of blood workup and vital signs. Time Spent With Patient Time: Total time managing care of this patient today ____ minutes.
[2024-02-17] MEDS: Sodium Bicarbonate 8.4% 100 MEQ in Dextrose 5 % 900 ML IV (16:42)
[2024-02-17] MEDS: Fidaxomicin 200 MG TABLET PO (18:19)
[2024-02-17 18:21] LABS: Anion Gap 22 (12-20); Blood Urea Nitrogen 32 mg/dL (9-16); Carbon Dioxide 12 mmol/L (22-29); Chloride 102 mmol/L (96-108); Creatinine Clr Calc Pharmacy 17.6; Estimated Glomerular Filt Rate 10; Glucose Random 97 mg/dL (60-115); Potassium 3.3 mmol/L (3.3-5.1); Sodium 133 mmol/L (135-145)
[2024-02-17 18:50] LABS: Creatinine Urine 263.52 mg/dL
--- NOTE | 2024-02-17 19:52 | P.CONNP_ITS ---
History of Present Illness Reason for Consult Consult date: 02/17/24 Reason for consult: AYSE Chief Complaint Chief complaint: Acute Kidney Injury History of Present Illness Narrative: Osiel Layton is a 44 years old man with essential hypertension on amlodipine presents to the emergency department complaining of multiple events of nonbloody diarrhea associated with crampy generalized abdominal pain without any vomiting but with associated fevers, mild head and generalized malaise. He also oliguric. He mentioned that about early January he took a course of Augmentin X7 days for tooth infection. In ER today, he was found to have fever of 100.1 with sinus tachycardia without any hypotension. Blood workup was remarkable for leukocytosis of 15.4, Bicarb is 12. Creatinine is 3.33 .Troponin was negative. C diff gene PCR positive and C diff toxin a and B negative toxin.He has been admitted for further management.Nephrology has been consulted to assist in his clinical care during his current hospital stay Review of Systems Review of Systems Yes all other systems are reviewed and are negative PMFSH Past Medical History Medical History Anxiety Family History Family History Mother No problems noted. Father No problems noted. 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 [employer] Allergies Allergy/AdvReac Type Severity Reaction Status Date / Time No Known Allergies Allergy Verified 02/16/24 16:12 Active Medications: Current Medications Acetaminophen (Acetaminophen 325 Mg Tablet) 650 mg PO Q6H PRN PRN Reason: Fever, Headache, Pain 1-3 Last Admin: 02/17/24 12:59 Dose: 650 mg Fidaxomicin (Fidaxomicin 200 Mg Tablet) 200 mg PO Q12H [facility] Stop: 02/27/24 15:59 Last Admin: 02/17/24 18:19 Dose: 200 mg Heparin Sodium (Porcine) (Heparin Sodium,Porcine 5,000 Unit/Ml Vial) 5,000 unit SUBCUT Q8H [facility] Last Admin: 02/17/24 18:19 Dose: Not Given Metronidazole (Flagyl) 500 mg in 100 mls @ 100 mls/hr IV Q8H [facility] Last Infusion: 02/17/24 18:40 Dose: Infused Sodium Bicarbonate 100 meq/ (Dextrose) 1,000 mls @ 100 mls/hr IV .Q10H [facility] Last Admin: 02/17/24 16:42 Dose: 100 mls/hr Melatonin (Melatonin 3 Mg Tablet) 6 mg PO BEDTIME PRN PRN Reason: Insomnia Ondansetron HCl (Ondansetron Hcl 4 Mg/2 Ml Vial) 4 mg IVPUSH Q8H PRN PRN Reason: Nausea and Vomiting Sodium Chloride (0.9 % Sodium Chloride Flush 3 Ml Syringe) 3 ml IVFLUSH QSHIFT [facility] Last Admin: 02/17/24 16:47 Dose: Not Given Home Medications ?Medication ?Instructions ?Recorded ?Confirmed ?Last Taken ?Type amlodipine 10 mg tablet 10 mg PO DAILY 03/06/23 02/17/24 02/15/24 History Physical Exam Vital Signs: Last Vital Signs Temp 99.2 F 02/17/24 16:00 Pulse 111 H 02/17/24 16:00 Resp 18 02/17/24 16:00 BP 130/86 02/17/24 16:00 Pulse Ox 97 02/17/24 16:00 O2 Del Method Room Air 02/17/24 16:00 BMI result Body Mass Index 34.2 Const General: comfortable and no acute distress Orientation/consciousness: patient oriented x3 HEENT Head: Yes normocephalic Eyes EOM: EOMs intact bilaterally Neck Neck: Yes supple Resp Auscultation: clear to auscultation bilaterally Cardio Jugular venous distension: no JVD Rate: regular rate GI Palpation (GI): Soft to palpation Auscultation: normal bowel sounds General: Yes no CVA tenderness Back/Spine/Pelvis Back: no CVA tenderness Skin General skin exam: no rashes or lesions noted Neuro General: patient oriented x3 and moves all extremities Extrem General: Yes no pedal edema Results Lab Results 02/17/24 05:11 02/17/24 17:29 Lab results: Chemistry 02/16/24 02/16/24 02/17/24 16:40 21:32 05:11 Sodium 134 L 135 132 L Potassium 3.0 L 3.7 D 3.4 Carbon Dioxide 16 L 12 L 11 L BUN 18 H 20 H 26 H Creatinine 2.49 H 3.33 H 4.39 H* Calcium 10.5 H D 9.0 D 9.2 Phosphorus 6.2 H 02/17/24 17:29 Sodium 133 L Potassium 3.3 Carbon Dioxide 12 L BUN 32 H Creatinine 6.12 H* Calcium 9.0 Phosphorus Hematology 02/16/24 02/17/24 16:40 05:11 WBC 15.4 H 14.1 H Hgb 16.8 D 14.4 Plt Count 289 239 Urinalysis 02/16/24 21:32 Urine Color Dark Yellow Urine Appearance Turbid Urine pH 5.0 Ur Specific [place] >= 1.030 H Urine Protein >=1000 (4+) H Urine Glucose (UA) 100 H Urine Ketones Trace Urine Blood Moderate (2+) H Urine Nitrite Negative Ur Leukocyte Esterase Negative Urine RBC 0-2 Urine WBC 6-10 H Ur Squamous Epith Cells >20 Hyaline Casts >20 Urine Studies 02/17/24 18:24 Urine Creatinine 263.52 Assessment and Plan (1) Acute renal failure: Qualifiers: Acute renal failure type: unspecified Qualified Code(s): N17.9 - Acute kidney failure, unspecified Status: Acute Plan Ayse likely due to tubular injury; No obstruction by imaging Profoundly acidotic- Started NaHCO3 drip; Urine studies ordered; Unlikely AIN/GN May need replacement therapy if he behaves like acute cortical necrosis Shall decide whether he needs a HD catheter and HD tomorrow after AM blood work Urine cocaine. C/W rest of current supportive management; Shall F/U Procedures Date of Service Date of Service: 02/17/24
--- NOTE | 2024-02-17 22:11 | CONS_ITS ---
DATE OF SERVICE: 02/17/2024 REFERRING PHYSICIAN: Dr. Jason Norman REASON FOR CONSULTATION: Abnormal CT scan. 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 He has had problems like this in the past and developed some acute renal failure after waiting several days at home, so he came to the emergency department when the pain and symptoms persisted. In the emergency department, he was evaluated with laboratory studies, which did document elevation of his BUN and creatinine, which has worsened over the past 2 days. He is currently being given IV fluids. Imaging of the abdomen and pelvis was obtained, which is reviewed in detail. There is wall thickening and mild dilation of the rectum, which is nonspecific. The patient has never undergone colonoscopy. He has no family history of colon cancer and has not had rectal bleeding. There was also mild wall thickening in low attenuation of the cecum, which is nonspecific. Laboratory studies on stool specimens have shown a positive stool salmonella PCR test by the GI panel and a positive C difficile test for the C difficile gene PCR, but a negative toxin A and B, results consistent with likely C difficile colonization. The patient had been on antibiotics for a dental procedure approximately a month ago. He believes it was amoxicillin or penicillin. He denies any suspect food ingestions that would put him at risk for salmonella. There is no history of inflammatory bowel disease. PAST MEDICAL HISTORY: 1. Hypertension. 2. Acute renal failure. 3. Anxiety. CURRENT MEDICATIONS: His current medication list is reviewed in the chart. ALLERGIES: THERE ARE NONE REPORTED. FAMILY HISTORY: This is reviewed with the patient and is negative for GI malignancy. SOCIAL HISTORY: He does smoke. He drinks 2 to 3 alcoholic drinks after work daily by his report. REVIEW OF SYSTEMS: SKIN: No pruritus. HEENT: Negative. CARDIOPULMONARY: He denies shortness of breath or chest pain. GASTROINTESTINAL: As above. GENITOURINARY: Negative. NEUROPSYCHIATRIC: Negative. PHYSICAL EXAMINATION: GENERAL: Shows a pleasant male, lying comfortably in bed. VITAL SIGNS: Reviewed in the electronic medical record and are stable. SKIN: Anicteric. HEENT: Shows no scleral icterus. NECK: Without lymphadenopathy or thyromegaly. LUNGS: Clear. HEART: Shows a regular rate and rhythm. S1, S2. No murmur. ABDOMEN: Soft without focal masses or tenderness. Bowel sounds are present. No organomegaly is noted. EXTREMITIES: Without edema. LABORATORY DATA: Reviewed. IMPRESSION: Abnormal CT scan of the colon. The findings as reported are nonspecific and he should be evaluated with colonoscopy, but I would recommend holding off on this at this time acutely due to his stool test results and acute renal failure. Once this has resolved, I did recommend that within the short term such as a month or so, he undergo colonoscopy and offered to schedule this here, but he prefers to follow through his primary care provider. Thanks for asking me to see him. I will follow him in the hospital with you. MD JODI Ferguson/JERICA / [phone]
--- NOTE | 2024-02-17 23:11 | PM.EVENT ---
Event Note Date of Service: 02/17/24 Event Note: Chart reviewed: Stool panel results = Salmonella detected --> Restart ceftriaxone IV and Dc Flagyl. Time Spent With Patient Time: Total time managing care of this patient today ____ minutes.
--- NOTE | 2024-02-17 23:57 | P.CNID_ITS ---
History of Present Illness Data of Consult Service Date: 02/17/24 Requesting physician: Kary Wiley Primary Care Provider: PRISCILLA MUNIZ HPI Reason for consult: severe Cdiff,renal insufficiency He presents with weakness and diarrhea. He has had watery stools for several days He has no fever or chills now, He took Augmentin last month for root canal. He never had Cdiff before. Review of Systems 2 Review of Systems: Yes all other systems are reviewed and are negative PMFSH Past Medical History Medical History Anxiety Family History Family History Mother No problems noted. Father No problems noted. 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 [employer] Allergies Allergy/AdvReac Type Severity Reaction Status Date / Time No Known Allergies Allergy Verified 02/16/24 16:12 Active Medications: Current Medications Acetaminophen (Acetaminophen 325 Mg Tablet) 650 mg PO Q6H PRN PRN Reason: Fever, Headache, Pain 1-3 Last Admin: 02/17/24 20:00 Dose: 650 mg Fidaxomicin (Fidaxomicin 200 Mg Tablet) 200 mg PO Q12H [facility] Stop: 02/27/24 15:59 Last Admin: 02/17/24 18:19 Dose: 200 mg Heparin Sodium (Porcine) (Heparin Sodium,Porcine 5,000 Unit/Ml Vial) 5,000 unit SUBCUT Q8H [facility] Last Admin: 02/17/24 18:19 Dose: Not Given Sodium Bicarbonate 100 meq/ (Dextrose) 1,000 mls @ 100 mls/hr IV .Q10H [facility] Last Admin: 02/17/24 16:42 Dose: 100 mls/hr Ceftriaxone Sodium 1 gm/ (Sodium Chloride) 50 mls @ 100 mls/hr IV Q24H [facility] Melatonin (Melatonin 3 Mg Tablet) 6 mg PO BEDTIME PRN PRN Reason: Insomnia Ondansetron HCl (Ondansetron Hcl 4 Mg/2 Ml Vial) 4 mg IVPUSH Q8H PRN PRN Reason: Nausea and Vomiting Sodium Chloride (0.9 % Sodium Chloride Flush 3 Ml Syringe) 3 ml IVFLUSH QSHIFT [facility] Last Admin: 02/17/24 23:26 Dose: Not Given Home Medications ?Medication ?Instructions ?Recorded ?Confirmed ?Last Taken ?Type amlodipine 10 mg tablet 10 mg PO DAILY 03/06/23 02/17/24 02/15/24 History Physical Exam 2 Vital Signs: Vital Signs: Last Vital Signs Temp 100.9 F H 02/17/24 21:20 Pulse 109 H 02/17/24 20:00 Resp 24 H 02/17/24 20:00 BP 127/84 02/17/24 20:00 Pulse Ox 97 02/17/24 20:00 O2 Del Method Room Air 02/17/24 20:00 BMI result Body Mass Index 34.2 Const: General: cooperative HEENT: Head: Yes normal to inspection Face and sinus: Yes normal facial exam Mouth: Normal oral and palatal mucosa present Teeth and gingiva: d entition normal Eyes: General: appearance normal, both eyes and all related structures P upils: Equal, round and reactive pupils present Resp: Effort & Inspection: normal respiratory effort Cardio: Rate: regular rate Rhythm: regular rhythm GI: Palpation (GI): Soft to palpation and nontender : General: Yes no CVA tenderness Back/Spine/Pelvis: Back: no CVA tenderness Skin: General skin exam: no rashes or lesions noted Neuro: General: moves all extremities Cranial nerves: Yes Equal, round and reactive pupils present Extrem: General: Yes normal to inspection Psych: Appearance: grossly normal Results Labs 02/17/24 05:11 02/17/24 17:29 Labs: Short CBC 02/17/24 Range/Units 05:11 WBC 14.1 H (4.8-10.8) X10*3/uL Hgb 14.4 (14.0-18.0) g/dl Hct 41.3 L (42.0-52.0) % Plt Count 239 (160-400) X10*3/uL BMP 02/17/24 02/17/24 05:11 17:29 Sodium 132 L 133 L Potassium 3.4 3.3 Chloride 104 102 Carbon Dioxide 11 L 12 L BUN 26 H 32 H Creatinine 4.39 H* 6.12 H* Calcium 9.2 9.0 Cardiac Enzymes 02/17/24 Range/Units 05:11 Total Creatine Kinase 33 L (38-174) U/L Liver Function 02/17/24 Range/Units 05:11 Total Bilirubin 0.5 (0.0-1.0) mg/dL AST 24 (5-37) U/L ALT 8 (0-40) U/L Alkaline Phosphatase 118 H (39-117) U/L Albumin 4.6 (3.5-5.0) g/dL Microbiology Microbiology Results: Microbiology 02/16/24 Unknown Urine clean catch - Urine smiley top Urine Culture - Preliminary Culture too young to evaluate. Assessment and Plan (1) Acute dehydration: Status: Acute (2) C. difficile colitis: Status: Acute (3) Acute renal failure: Qualifiers: Acute renal failure type: unspecified Qualified Code(s): N17.9 - Acute kidney failure, unspecified Status: Acute Plan He has severe Cdiff with renal failure and leukocytosis. He has salmonella also and has no immune deficiency found Would give fidaxomicin 200 mg bid in house if able. Likely change to po Vancomycin 125qid total 10-14 days on discharge if Dificid not covered. Add Flagyl 500 mg IV for now for severe Cdiff,probably 3-5 days. Check HIV test. No Salmonella treatment at this time,no immune deficiency found should go away by self.
[2024-02-18] MEDS: Heparin Sodium,Porcine 5,000 UNIT/ML VIAL 5000 UNIT SUBCUT ×3 (02:24→15:56)
[2024-02-18] MEDS: Sodium Bicarbonate 8.4% 100 MEQ in Dextrose 5 % 900 ML IV ×3 (02:25→22:00)
[2024-02-18] MEDS: Acetaminophen 325 MG TABLET 650 MG PO (03:41)
[2024-02-18] MEDS: Fidaxomicin 200 MG TABLET PO ×2 (03:41→15:55)
[2024-02-18 04:00] VITALS: BP 100/50; PULSE 102; RESP 20; TEMP 38.3; O2SAT 98
[2024-02-18 07:28] LABS: Anion Gap 24 (12-20); Blood Urea Nitrogen 36 mg/dL (9-16); Carbon Dioxide 12 mmol/L (22-29); Chloride 96 mmol/L (96-108); Creatinine Clr Calc Pharmacy 14.5; Estimated Glomerular Filt Rate 8; Glucose Random 108 mg/dL (60-115); Sodium 129 mmol/L (135-145)
[2024-02-18 07:36] LABS: Potassium 2.6 mmol/L (3.3-5.1)
[2024-02-18 07:59] LABS: Magnesium 1.6 mg/dL (1.6-2.6)
[2024-02-18 08:00] VITALS: BP 132/83; PULSE 93; RESP 20; TEMP 36.8; O2SAT 97
[2024-02-18 08:14] LABS: Basophils Percent Auto 0.4 % (0-2); Eosinophils Percent Auto 0.1 % (0-4); Hematocrit 38.7 % (42.0-52.0); Hemoglobin 14.1 g/dl (14.0-18.0); Imm Gran Abs Auto 0.05 X10*3/uL (0.00-0.03); Imm Gran Pct Auto 0.5 % (0.0-0.4); Lymphocytes Absolute Auto 0.9 X10*3/uL (1.2-4.9); Lymphocytes Percent Auto 8.1 % (20-40); MANUAL DIFF FLAG SCAN; Mean Corpuscular HGB Conc 36.4 g/dl (31.0-36.0); Mean Corpuscular Hemoglobin 32.9 pg (27.0-33.0); Mean Corpuscular Volume 90.2 fL (80.0-98.0); Mean Platelet Volume 9.9 fL (9.4-12.4); Monocytes Absolute Auto 1.6 X10*3/uL (0.1-1.2); Monocytes Percent Auto 14.6 % (2-11); Neutrophils Absolute Auto 8.2 x10*3/uL (2.0-8.3); Neutrophils Percent Auto 76.3 % (45-73); Platelet Count 231 X10*3/uL (160-400); Red Blood Count 4.29 X10*6/uL (4.60-5.80); Red Cell Distribution Width 12.9 % (11.0-16.0); SCAN SMEAR FLAG 1; White Blood Count 10.8 X10*3/uL (4.8-10.8)
[2024-02-18 08:39] LABS: SLIDE REVIEW VERIFIED
[2024-02-18] MEDS: Potassium Chloride/H20 10 MEQ/100 ML PIGGYBACK 100 MEQ IV ×6 (08:59→20:15)
[2024-02-18] MEDS: metroNIDAZOLE/NS 500 MG/100 ML PIGGYBACK 100 MG IV ×2 (08:59→15:55)
[2024-02-18] MEDS: Potassium Chloride ER 20 MEQ TAB.ER.PRT PO (09:10)
--- NOTE | 2024-02-18 09:36 | PM.PNNEP ---
Subjective Subjective Date of Service: 02/18/24 Interval history: Events noted. Remains oliguric Creatinine continues to increase Physical Exam Vital Signs: Vital Signs: Last Vital Signs Temp 98.3 F 02/18/24 08:00 Pulse 93 02/18/24 08:00 Resp 20 02/18/24 08:00 BP 132/83 02/18/24 08:00 Pulse Ox 97 02/18/24 08:00 O2 Del Method Room Air 02/18/24 08:00 BMI result Body Mass Index 34.2 Const: General: comfortable and no acute distress Orientation/consciousness: patient oriented x3 HEENT: Head: Yes normocephalic Eyes: EOM: EOMs intact bilaterally Neck: Neck: Yes supple Resp: Auscultation: clear to auscultation bilaterally Cardio: Jugular venous distension: no JVD Rate: regular rate GI: Palpation (GI): Soft to palpation Auscultation: normal bowel sounds : General: Yes no CVA tenderness Back/Spine/Pelvis: Back: no CVA tenderness Skin: General skin exam: no rashes or lesions noted Neuro: General: patient oriented x3 and moves all extremities Extrem: General: Yes no pedal edema Objective Data Labs 02/18/24 06:19 02/18/24 06:19 Labs: Laboratory Results - last 24 hr 02/16/24 02/17/24 02/17/24 21:32 17:29 18:24 WBC RBC Hgb Hct MCV MCH MCHC RDW Plt Count MPV Immature Gran % (Auto) Neut % (Auto) Lymph % (Auto) Kinney % (Auto) Eos % (Auto) Baso % (Auto) Lymph # (Auto) Kinney # (Auto) Eos # (Auto) Baso # (Auto) Abs Immat Gran (auto) Absolute Neuts (auto) Absolute Nucleated RBC Nucleated RBC % (auto) Smear Tech's Comments Hold Purple Top Sodium 133 L Potassium 3.3 Chloride 102 Carbon Dioxide 12 L Anion Gap 22 H BUN 32 H Creatinine 6.12 H* Estim Creat Clear Calc 17.6 Estimated GFR 10 Random Glucose 97 Calcium 9.0 Magnesium Ur Random Sodium 42.0 Urine Creatinine 263.52 Stl C. cayetanensis PCR Not Detected Stool Rotavirus A PCR Not Detected Stl Adenov F 40/41 PCR Not Detected Stool Astrovirus (PCR) Not Detected Stool Campylobacter PCR Not Detected Stool Cryptosporidium PCR Not Detected Stl Sh Tox Pr E STEC PCR Not Detected Stool E coli O157 PCR Not applicable Stl Enterotoxigenic E PCR Not Detected Stool EPEC (PCR) Not Detected Stool EAEC (PCR) Not Detected Stl E. histolytica PCR Not Detected Stool Giardia Lamblia PCR Not Detected Stl P. shigelloides PCR Not Detected Stool Salmonella PCR Detected A Stool Sapovirus (PCR) Not Detected Stl Shigella/EIEC PCR Not Detected St Y.enterocolitica PCR Not Detected Stool Vibrio (PCR) Not Detected Stl Vibrio cholerae PCR Not Detected Stl Norovirus GI/GII PCR Not Detected 02/18/24 06:19 WBC 10.8 RBC 4.29 L Hgb 14.1 Hct 38.7 L MCV 90.2 MCH 32.9 MCHC 36.4 H RDW 12.9 Plt Count 231 MPV 9.9 Immature Gran % (Auto) 0.5 H Neut % (Auto) 76.3 H Lymph % (Auto) 8.1 L Kinney % (Auto) 14.6 H Eos % (Auto) 0.1 Baso % (Auto) 0.4 Lymph # (Auto) 0.9 L Kinney # (Auto) 1.6 H Eos # (Auto) 0.0 Baso # (Auto) 0.0 Abs Immat Gran (auto) 0.05 H Absolute Neuts (auto) 8.2 Absolute Nucleated RBC 0.000 Nucleated RBC % (auto) 0.0 Smear Tech's Comments VERIFIED Hold Purple Top SEE NOTE Sodium 129 L Potassium 2.6 L* D Chloride 96 Carbon Dioxide 12 L Anion Gap 24 H BUN 36 H Creatinine 7.42 H* Estim Creat Clear Calc 14.5 Estimated GFR 8 Random Glucose 108 Calcium 9.0 Magnesium 1.6 Ur Random Sodium Urine Creatinine Stl C. cayetanensis PCR Stool Rotavirus A PCR Stl Adenov F 40/41 PCR Stool Astrovirus (PCR) Stool Campylobacter PCR Stool Cryptosporidium PCR Stl Sh Tox Pr E STEC PCR Stool E coli O157 PCR Stl Enterotoxigenic E PCR Stool EPEC (PCR) Stool EAEC (PCR) Stl E. histolytica PCR Stool Giardia Lamblia PCR Stl P. shigelloides PCR Stool Salmonella PCR Stool Sapovirus (PCR) Stl Shigella/EIEC PCR St Y.enterocolitica PCR Stool Vibrio (PCR) Stl Vibrio cholerae PCR Stl Norovirus GI/GII PCR Microbiology Microbiology Results: Microbiology 02/16/24 Unknown Urine clean catch - Urine smiley top Urine Culture - Preliminary Culture too young to evaluate. Procedures Date of Service Date of Service: 02/18/24 Assessment & Plan Assessment and plan (1) Acute renal failure: Status: Acute Plan Bruce likely due to tubular injury; No obstruction by imaging Profoundly acidotic- on NaHCO3 drip; Unlikely AIN/GN May need replacement therapy if he behaves like acute cortical necrosis She will arrange for insertion of temporary hemodialysis catheter and initiate therapy as indicated Replace potassium. Watch urine output. Urine cocaine. C/W rest of current supportive management; Shall F/U Time Spent With Patient Time: Total time managing care of this patient today ____ minutes. Progress Note: Quality Stroke Does the patient have a stroke diagnosis?: No
[2024-02-18] MEDS: cefTRIAXone sodium 2 GM in 0.9 % Sodium Chloride 50 ML IV (11:41)
--- NOTE | 2024-02-18 11:53 | HO.PM.IMPN ---
Subjective Subjective Date of Service: 02/18/24 Interval History: Seen and examined this morning Follow-up for Salmonella, C diff, renal failure Renal function continues to worsen Diarrhea improving, no abdominal pain. No fever this morning Review of Systems Review of Systems: Yes all other systems are reviewed and are negative Constitutional Constitutional: Denies chills and Denies fever(s) Cardiovascular Cardiovascular: Denies chest pain Gastrointestinal Gastrointestinal: Denies abdominal pain, Reports diarrhea, Denies nausea and Denies vomiting Physical Exam Vital Signs: Vital Signs: Last Vital Signs Temp 98.3 F 02/18/24 08:00 Pulse 93 02/18/24 08:00 Resp 20 02/18/24 08:00 BP 132/83 02/18/24 08:00 Pulse Ox 97 02/18/24 08:00 O2 Del Method Room Air 02/18/24 08:00 BMI result Body Mass Index 34.2 Const: Other: Constitutional-cooperative, comfortable, no acute distress. awake, alert Pulmonary-breathing easy, unlabored, no respiratory distress GI-abdomen is soft, nontender, nondistended Musculoskeletal-able to move all 4 extremities spontaneously Skin is warm and dry Objective Data Active Medications Acetaminophen (Acetaminophen 325 Mg Tablet) 650 mg PO Q6H PRN PRN Reason: Fever, Headache, Pain 1-3 Last Admin: 02/18/24 03:41 Dose: 650 mg Documented By: ROCÍO Fidaxomicin (Fidaxomicin 200 Mg Tablet) 200 mg PO Q12H [facility] Stop: 02/27/24 15:59 Last Admin: 02/18/24 03:41 Dose: 200 mg Documented By: ROCÍO Heparin Sodium (Porcine) (Heparin Sodium,Porcine 5,000 Unit/Ml Vial) 5,000 unit SUBCUT Q8H [facility] Last Admin: 02/18/24 09:01 Dose: 5,000 unit Documented By: GLENNY Sodium Bicarbonate 100 meq/ (Dextrose) 1,000 mls @ 100 mls/hr IV .Q10H [facility] Last Admin: 02/18/24 10:14 Dose: 100 mls/hr Documented By: GLENNY Metronidazole (Flagyl) 500 mg in 100 mls @ 100 mls/hr IV Q8H [facility] Last Infusion: 02/18/24 10:18 Dose: Infused Documented By: GLENNY Ceftriaxone Sodium 2 gm/ (Sodium Chloride) 50 mls @ 100 mls/hr IV Q24H [facility] Last Admin: 02/18/24 11:41 Dose: 100 mls/hr Documented By: GLENNY Melatonin (Melatonin 3 Mg Tablet) 6 mg PO BEDTIME PRN PRN Reason: Insomnia Ondansetron HCl (Ondansetron Hcl 4 Mg/2 Ml Vial) 4 mg IVPUSH Q8H PRN PRN Reason: Nausea and Vomiting Sodium Chloride (0.9 % Sodium Chloride Flush 3 Ml Syringe) 3 ml IVFLUSH QSHIFT [facility] Last Admin: 02/18/24 09:01 Dose: Not Given Documented By: GLENNY Non-Admin Reason: IV Running Labs 02/18/24 06:19 02/18/24 06:19 Labs: Laboratory Results - last 24 hr 02/17/24 02/17/24 02/18/24 17:29 18:24 06:19 MCV 90.2 MCH 32.9 MCHC 36.4 H RDW 12.9 Plt Count 231 MPV 9.9 Immature Gran % (Auto) 0.5 H Neut % (Auto) 76.3 H Lymph % (Auto) 8.1 L [place] % (Auto) 14.6 H Eos % (Auto) 0.1 Baso % (Auto) 0.4 Lymph # (Auto) 0.9 L [place] # (Auto) 1.6 H Eos # (Auto) 0.0 Baso # (Auto) 0.0 Abs Immat Gran (auto) 0.05 H Absolute Neuts (auto) 8.2 Absolute Nucleated RBC 0.000 Nucleated RBC % (auto) 0.0 Smear Tech's Comments VERIFIED Hold Purple Top SEE NOTE Anion Gap 22 H 24 H Estim Creat Clear Calc 17.6 14.5 Estimated GFR 10 8 Random Glucose 97 108 Calcium 9.0 9.0 Magnesium 1.6 Ur Random Sodium 42.0 Urine Creatinine 263.52 Microbiology Microbiology Results: Microbiology 02/16/24 Unknown Urine Culture - Final Urine clean catch - Urine smiley top Assessment and Plan (1) C. difficile colitis: Status: Acute (2) Metabolic acidosis: Status: Acute (3) Acute renal failure: Status: Acute Plan This is a 44 year old man w/ PMHx significant for prior hospitalization due to AYSE and diarrhea presents to the hospital with diarrhea now with worsening renal function Acute kidney injury/ATN No improvement with IV fluid Temporary dialysis catheter to be placed today, possible need for dialysis Total CK>33. Avoid nephrotoxic agents nephrology following > ATN continue Iv fluids with D5W, bicarb @ 100/hr sepsis due to Cdiff colitis, salmonella fever, tachycardia resolved; white count resolved Continue contact precautions. C diff PCR positive, toxin negative but given symptoms Continue fidaxomicin, IV Flagyl for C diff GI panel >salmonella positive-add ceftriaxone 2 g daily ID following blood cultures obtained 02/17, pending Hyponatremia likely secondary to dehydration/diarrhea. Continue IV fluids. Continue to monitor Na+ level. Hypokalemia Due to diarrhea Replace Repeat this afternoon follow BMP High anion gap metabolic acidosis AG closed Likely mixed disorder (metabolic alkalosis + metabolic acidosis) due to AYSE and diarrhea. Bicarb 12 continue bicarb drip Abnormal abdomen and pelvis CT scan Proctitis, inflammation, IBD vs neoplasm, chronic or prior colitis. Continue empiric IV antibiotic therapy with ceftriaxone and Flagyl. seen by GI - recommend short outpatient follow-up colonoscopy Essential hypertension. Hold amlodipine due to soft BP. Code status: Full DVT prophylaxis: Heparin Requires ongoing inpatient hospitalization for AYSE possibly requiring dialysis and diarrhea therapy with IV fluids and evaluation by different subspecialties. Patient also will need close monitoring of blood workup and vital signs. Quality Stroke Does the patient have a stroke diagnosis?: No VTE Prior VTE?: No VTE Risk Level:: Medical - moderate - high VTE Device Contraindication: Treatment Not Indicated VTE Drug Contraindication: N/A - Med Ordered
[2024-02-18 12:00] VITALS: BP 129/81; PULSE 91; RESP 20; TEMP 37.1; O2SAT 99
[2024-02-18 13:39] LABS: Amphetamine Screen Urine Not Detected (Not Detect); Barbiturates, Urine Not Detected (Not Detect); Benzodiazepines Screen Urine Not Detected (Not Detect); Buprenorphine Scr Not Detected (Not Detect); Cannabinoid Screen Urine Not Detected (Not Detect); Cocaine Screen Urine Not Detected (Not Detect); Fentanyl, urine Not Detected (Not Detect); Methadone Screen, Urine Not Detected (Not Detect); Opiate Screen Urine Not Detected (Not Detect); Oxycodone Screen Urine Not Detected (Not Detect); Phencyclidine Screen Urine Not Detected (Not Detect)
[2024-02-18 14:12] LABS: Creatinine Urine 179.52 mg/dL; Protein/Creatinine Ratio, Ur 1.01 (<0.2); Total Protein Urine Random 181 mg/dL (<12)
[2024-02-18 16:00] VITALS: BP 140/88; PULSE 95; RESP 16; TEMP 37.2; O2SAT 98
[2024-02-18 16:43] LABS: Potassium 2.7 mmol/L (3.3-5.1)
[2024-02-18 19:14] VITALS: BP 126/78; PULSE 96; RESP 16; TEMP 37.2; O2SAT 97
[2024-02-18] MEDS: Magnesium Oxide 400 MG TABLET PO (21:26)
[2024-02-18] MEDS: Magnesium Sulfate/H2O 2 GM/50 ML PIGGYBACK IV (22:00)
[2024-02-18 23:54] VITALS: BP 123/73; PULSE 92; RESP 20; TEMP 37.1; O2SAT 95
[2024-02-19 00:48] LABS: Potassium 2.7 mmol/L (3.3-5.1)
[2024-02-19] MEDS: metroNIDAZOLE/NS 500 MG/100 ML PIGGYBACK 100 MG IV ×3 (00:55→17:42)
[2024-02-19] MEDS: Heparin Sodium,Porcine 5,000 UNIT/ML VIAL 5000 UNIT SUBCUT ×3 (00:56→17:42)
[2024-02-19] MEDS: Potassium Chloride Packet 20 MEQ PACKET 40 MEQ PO ×3 (01:26→17:41)
[2024-02-19] MEDS: Potassium Chloride/H20 10 MEQ/100 ML PIGGYBACK 100 MEQ IV ×4 (01:32→04:41)
[2024-02-19 03:33] VITALS: BP 137/80; PULSE 92; RESP 20; TEMP 36.6; O2SAT 95
[2024-02-19] MEDS: Fidaxomicin 200 MG TABLET PO ×2 (03:38→17:42)
[2024-02-19 07:32] VITALS: BP 133/80; PULSE 97; RESP 18; TEMP 36.3; O2SAT 96
[2024-02-19 07:40] LABS: Anion Gap 20 (12-20); Blood Urea Nitrogen 42 mg/dL (9-16); Calcium 8.6 mg/dL (8.4-10.2); Carbon Dioxide 16 mmol/L (22-29); Chloride 97 mmol/L (96-108); Creatinine Clr Calc Pharmacy 15.1; Estimated Glomerular Filt Rate 8; Glucose Random 109 mg/dL (60-115); Potassium 3.2 mmol/L (3.3-5.1); Sodium 130 mmol/L (135-145)
[2024-02-19 08:58] LABS: EOS Counted 0 CELLS; WBC, Counted 0 CELLS
[2024-02-19 08:59] LABS: EOS QC POS YES; EOS Stain Quality OK YES
[2024-02-19 09:07] LABS: HIV Num 1 7.85 S/CO (0.00-0.99)
[2024-02-19] MEDS: Magnesium Oxide 400 MG TABLET PO ×2 (09:14→20:38)
[2024-02-19] MEDS: Sodium Bicarbonate 8.4% 100 MEQ in Dextrose 5 % 900 ML IV (09:14)
[2024-02-19 09:49] LABS: Calcium 8.7 mg/dL (8.4-10.2); Creatinine Clr Calc Pharmacy 15.6; Estimated Glomerular Filt Rate 9; Glucose Random 112 mg/dL (60-115)
[2024-02-19 09:50] LABS: Blood Urea Nitrogen 39 mg/dL (9-16)
[2024-02-19 10:06] LABS: Anion Gap 20 (12-20); Carbon Dioxide 18 mmol/L (22-29); Chloride 96 mmol/L (96-108); Potassium 2.9 mmol/L (3.3-5.1); Sodium 131 mmol/L (135-145)
--- NOTE | 2024-02-19 10:23 | MHC.CM.PN ---
Per ROUNDS discussion, Patient is not yet medically cleared for dc (may need new HD); home is the goal and CM will continue to follow.
[2024-02-19 10:44] LABS: HIV AB/AG Nonreactive (Nonreactive); HIV Num 2 0.07 S/CO; HIV Num 3 0.09 S/CO
[2024-02-19 11:24] VITALS: BP 135/84; PULSE 89; TEMP 36.1; O2SAT 97
[2024-02-19] MEDS: Calcium Carbonate 750 MG TAB.CHEW PO ×2 (12:29→17:52)
[2024-02-19] MEDS: cefTRIAXone sodium 2 GM in 0.9 % Sodium Chloride 50 ML IV (12:29)
--- NOTE | 2024-02-19 13:23 | HO.PM.IMPN ---
Subjective Subjective Date of Service: 02/19/24 Interval History: Seen and examined this morning Follow-up for diarrhea, renal failure No abdominal pain, no significant diarrhea, still with loose stools Increasing urine output overnight Review of Systems Review of Systems: Yes all other systems are reviewed and are negative Constitutional Constitutional: Denies fever(s) Physical Exam Vital Signs: Vital Signs: Last Vital Signs Temp 96.9 F 02/19/24 11:24 Pulse 89 02/19/24 11:24 Resp 18 02/19/24 07:32 BP 135/84 02/19/24 11:24 Pulse Ox 97 02/19/24 11:24 O2 Del Method Room Air 02/19/24 11:24 BMI result Body Mass Index 34.2 Const: Other: Constitutional-cooperative, comfortable, no acute distress. awake, alert Pulmonary-breathing easy, unlabored, no respiratory distress GI-abdomen is soft, nontender, nondistended Musculoskeletal-able to move all 4 extremities spontaneously Skin is warm and dry Neck: Other: Temporary dialysis catheter in place Objective Data Active Medications Acetaminophen (Acetaminophen 325 Mg Tablet) 650 mg PO Q6H PRN PRN Reason: Fever, Headache, Pain 1-3 Last Admin: 02/18/24 03:41 Dose: 650 mg Documented By: ROCÍO Calcium Carbonate (Calcium Carbonate 750 Mg Tab.Chew) 750 mg PO Q6H PRN PRN Reason: Heartburn Last Admin: 02/19/24 12:29 Dose: 750 mg Documented By: GLENNY Fidaxomicin (Fidaxomicin 200 Mg Tablet) 200 mg PO Q12H [facility] Stop: 02/27/24 15:59 Last Admin: 02/19/24 03:38 Dose: 200 mg Documented By: ROCÍO Heparin Sodium (Porcine) (Heparin Sodium,Porcine 5,000 Unit/Ml Vial) 5,000 unit SUBCUT Q8H [facility] Last Admin: 02/19/24 09:14 Dose: 5,000 unit Documented By: GLENNY Sodium Bicarbonate 100 meq/ (Dextrose) 1,000 mls @ 100 mls/hr IV .Q10H [facility] Last Admin: 02/19/24 09:14 Dose: 100 mls/hr Documented By: GLENNY Metronidazole (Flagyl) 500 mg in 100 mls @ 100 mls/hr IV Q8H [facility] Last Infusion: 02/19/24 10:46 Dose: Infused Documented By: GLENNY Ceftriaxone Sodium 2 gm/ (Sodium Chloride) 50 mls @ 100 mls/hr IV Q24H [facility] Last Admin: 02/19/24 12:29 Dose: 100 mls/hr Documented By: GLENNY Magnesium Oxide (Magnesium Oxide 400 Mg Tablet) 400 mg PO BID [facility] Last Admin: 02/19/24 09:14 Dose: 400 mg Documented By: GLENNY Melatonin (Melatonin 3 Mg Tablet) 6 mg PO BEDTIME PRN PRN Reason: Insomnia Ondansetron HCl (Ondansetron Hcl 4 Mg/2 Ml Vial) 4 mg IVPUSH Q8H PRN PRN Reason: Nausea and Vomiting Potassium Chloride (Potassium Chloride Packet 20 Meq Packet) 40 meq PO TID [facility] Stop: 02/19/24 15:01 Last Admin: 02/19/24 09:14 Dose: 40 meq Documented By: GLENNY Sodium Chloride (0.9 % Sodium Chloride Flush 3 Ml Syringe) 3 ml IVFLUSH QSHIFT [facility] Last Admin: 02/19/24 07:07 Dose: Not Given Documented By: GLENNY Non-Admin Reason: IV Running Labs 02/18/24 06:19 02/19/24 09:00 Labs: Laboratory Results - last 24 hr 02/18/24 02/18/24 02/19/24 12:40 16:08 06:28 Hold Purple Top SEE NOTE Anion Gap 20 Estim Creat Clear Calc 15.1 Estimated GFR 8 Random Glucose 109 Calcium 8.6 Urine Eosinophils % 0.0 U Random Total Protein 181 H Ur Random Sodium 41.0 Urine Creatinine 179.52 Protein/Creatinin Ratio 1.01 H Urine Opiates Screen Not Detected Ur Buprenorphine Scrn Not Detected Ur Oxycodone Screen Not Detected Urine Methadone Screen Not Detected Urine Fentanyl Screen Not Detected Ur Barbiturates Screen Not Detected Ur Phencyclidine Scrn Not Detected Ur Amphetamines Screen Not Detected U Benzodiazepines Scrn Not Detected Urine Cocaine Screen Not Detected U Marijuana (THC) Screen Not Detected HIV 1&2 Ab/P24 Ag 4thGn Nonreactive 02/19/24 09:00 Hold Purple Top Anion Gap 20 Estim Creat Clear Calc 15.6 Estimated GFR 9 Random Glucose 112 Calcium 8.7 Urine Eosinophils % U Random Total Protein Ur Random Sodium Urine Creatinine Protein/Creatinin Ratio Urine Opiates Screen Ur Buprenorphine Scrn Ur Oxycodone Screen Urine Methadone Screen Urine Fentanyl Screen Ur Barbiturates Screen Ur Phencyclidine Scrn Ur Amphetamines Screen U Benzodiazepines Scrn Urine Cocaine Screen U Marijuana (THC) Screen HIV 1&2 Ab/P24 Ag 4thGn Microbiology Microbiology Results: Microbiology 02/18/24 08:03 Blood Culture - Preliminary Blood - Venous No growth after 24 hours. 02/18/24 08:04 Blood Culture - Preliminary Blood - Venous No growth after 24 hours. 02/16/24 Unknown Urine Culture - Final Urine clean catch - Urine smiley top Assessment and Plan (1) C. difficile colitis: Status: Acute (2) Metabolic acidosis: Status: Acute (3) Acute renal failure: Status: Acute Plan This is a 44 year old man w/ PMHx significant for prior hospitalization due to AYSE and diarrhea presents to the hospital with diarrhea now with worsening renal function Acute kidney injury/ATN Slight decrease in creatinine Temporary dialysis catheter placed February 17, no indication for dialysis today Total CK>33. Avoid nephrotoxic agents nephrology following > ATN continue IVF with D5W, bicarb @ 100/hr for another day, bicarb improving sepsis due to Cdiff colitis, salmonella fever, tachycardia resolved; white count resolved Continue contact precautions. C diff PCR positive, toxin negative but treat given symptoms Continue fidaxomicin, IV Flagyl for C diff GI panel >salmonella positive-added ceftriaxone 2 g daily ID following blood cultures negative to date mild Hyponatremia likely secondary to dehydration/diarrhea. Continue IV fluids. Continue to monitor Na+ level. Hypokalemia Due to diarrhea. improving Replace and follow follow BMP High anion gap metabolic acidosis AG closed Likely mixed disorder (metabolic alkalosis + metabolic acidosis) due to AYSE and diarrhea. improving continue bicarb drip Abnormal abdomen and pelvis CT scan Proctitis, inflammation, IBD vs neoplasm, chronic or prior colitis. Continue empiric IV antibiotic therapy with ceftriaxone and Flagyl. seen by GI - recommend short outpatient follow-up colonoscopy Essential hypertension. Hold amlodipine due to soft BP. Code status: Full DVT prophylaxis: Heparin Requires ongoing inpatient hospitalization for AYSE possibly requiring dialysis and diarrhea therapy with IV fluids and evaluation by different subspecialties. Patient also will need close monitoring of blood workup and vital signs. Quality Stroke Does the patient have a stroke diagnosis?: No VTE Prior VTE?: No VTE Risk Level:: Medical - moderate - high VTE Device Contraindication: Treatment Not Indicated VTE Drug Contraindication: N/A - Med Ordered
--- NOTE | 2024-02-19 13:40 | PM.EVENT ---
Event Note Date of Service: 02/19/24 Event Note: renal failure became ongoing despite hydration call immunosuppressed Ceftriaxone 14d ,make sure no aortic involvement CT abdomen Time Spent With Patient Time: Total time managing care of this patient today ____ minutes.
--- NOTE | 2024-02-19 15:19 | P.PNNP_ITS ---
Subjective Subjective Date of Service: 02/19/24 Interval history: Seen and examined this morning ;No abdominal pain, no significant diarrhea, still with loose stools; Increasing urine output overnight; feels better Physical Exam 2 Vital Signs: Vital Signs: Last Vital Signs Temp 96.9 F 02/19/24 11:24 Pulse 89 02/19/24 11:24 Resp 18 02/19/24 07:32 BP 135/84 02/19/24 11:24 Pulse Ox 97 02/19/24 11:24 O2 Del Method Room Air 02/19/24 11:24 BMI result Body Mass Index 34.2 Const: General: comfortable and no acute distress O rientation/consciousness: patient oriented x3 HEENT: Head: Yes normocephalic Mouth: Normal oral and palatal mucosa present Eyes: EOM: EOMs intact bilaterally Neck: Neck: Yes supple Resp: Auscultation: clear to auscultation bilaterally Cardio: Jugular venous distension: no JVD Rate: regular rate GI: Palpation (GI): Soft to palpation Auscultation: normal bowel sounds : General: Yes no CVA tenderness Back/Spine/Pelvis: Back: no CVA tenderness Skin: General skin exam: no rashes or lesions noted Neuro: General: patient oriented x3 and moves all extremities Extrem: General: Yes no pedal edema Objective Data Labs 02/18/24 06:19 02/19/24 09:00 Labs: Laboratory Results - last 24 hr 02/18/24 02/18/24 02/18/24 12:40 16:08 23:34 Hold Purple Top Sodium Potassium 2.7 L* 2.7 L* Chloride Carbon Dioxide Anion Gap BUN Creatinine Estim Creat Clear Calc Estimated GFR Random Glucose Calcium Urine Eosinophils % 0.0 HIV 1&2 Ab/P24 Ag 4thGn Nonreactive 02/19/24 02/19/24 06:28 09:00 Hold Purple Top SEE NOTE Sodium 130 L 131 L Potassium 3.2 L 2.9 L* Chloride 97 96 Carbon Dioxide 16 L 18 L Anion Gap 20 20 BUN 42 H 39 H Creatinine 7.11 H* 6.89 H* Estim Creat Clear Calc 15.1 15.6 Estimated GFR 8 9 Random Glucose 109 112 Calcium 8.6 8.7 Urine Eosinophils % HIV 1&2 Ab/P24 Ag 4thGn Microbiology Microbiology Results: Microbiology 02/18/24 08:03 Blood - Venous Blood Culture - Preliminary No growth after 24 hours. 02/18/24 08:04 Blood - Venous Blood Culture - Preliminary No growth after 24 hours. 02/16/24 Unknown Urine clean catch - Urine smiley top Urine Culture - Final Procedures Date of Service Date of Service: 02/19/24 Assessment & Plan Assessment and plan (1) Acute renal failure: Status: Acute Plan Bruce likely due to tubular injury; No obstruction by imaging was profoundly acidotic- had been on NaHCO3 drip which could be discontinued in the morning Unlikely AIN/GN; urine output improved; needs aggressive potassium replacement No need for any dialysis; C/W rest of current supportive management; Shall F/U Progress Note: Quality Stroke Does the patient have a stroke diagnosis?: No
[2024-02-19 15:50] VITALS: BP 128/78; PULSE 82; RESP 19; TEMP 36.6; O2SAT 97
[2024-02-19 19:24] VITALS: BP 125/71; PULSE 81; RESP 19; TEMP 36.4; O2SAT 98
[2024-02-19] MEDS: 0.9 % Sodium Chloride Flush 3 ML SYRINGE IVFLUSH (20:38)
[2024-02-20] VITALS (7 sets, daily range): BP systolic 117–134; BP diastolic 65–81; PULSE 71–96; RESP 16–18; TEMP 36.2–37.4; O2SAT 94–98
[2024-02-20] MEDS: metroNIDAZOLE/NS 500 MG/100 ML PIGGYBACK 100 MG IV ×2 (00:29→09:17)
[2024-02-20] MEDS: Heparin Sodium,Porcine 5,000 UNIT/ML VIAL 5000 UNIT SUBCUT ×2 (00:30→16:02)
[2024-02-20] MEDS: Fidaxomicin 200 MG TABLET PO ×2 (04:02→16:02)
[2024-02-20 06:53] LABS: Magnesium 1.8 mg/dL (1.6-2.6)
[2024-02-20 08:49] LABS: Neutrophils Absolute Auto 4.6 x10*3/uL (2.0-8.3); White Blood Count 7.2 X10*3/uL (4.8-10.8)
[2024-02-20 08:53] LABS: Anion Gap 17 (12-20); Blood Urea Nitrogen 39 mg/dL (9-16); Calcium 8.8 mg/dL (8.4-10.2); Carbon Dioxide 20 mmol/L (22-29); Chloride 99 mmol/L (96-108); Estimated Glomerular Filt Rate 14; Glucose Random 102 mg/dL (60-115); Potassium 3.4 mmol/L (3.3-5.1); Sodium 133 mmol/L (135-145)
[2024-02-20] MEDS: Magnesium Oxide 400 MG TABLET PO ×2 (09:18→20:11)
[2024-02-20] MEDS: 0.9 % Sodium Chloride Flush 3 ML SYRINGE IVFLUSH ×3 (09:18→20:12)
--- NOTE | 2024-02-20 13:04 | P.PNIM_ITS ---
Subjective Subjective Date of Service: 02/20/24 Interval History: Seen and examined this morning Follow-up for AYSE, diarrhea Diarrhea resolved, no abdominal pain, no fever Had some bleeding from temporary dialysis catheter overnight Review of Systems Review of Systems: Yes all other systems are reviewed and are negative Constitutional Constitutional: Denies fever(s) Gastrointestinal Gastrointestinal: Reports abdominal pain Physical Exam 2 Vital Signs: Vital Signs: Last Vital Signs Temp 99.3 F 02/20/24 10:52 Pulse 76 02/20/24 10:52 Resp 18 02/20/24 10:52 BP 120/74 02/20/24 10:52 Pulse Ox 96 02/20/24 10:52 O2 Del Method Room Air 02/20/24 10:52 BMI result Body Mass Index 34.2 Const: Other: Constitutional-cooperative, comfortable, no acute distress. awake, alert Pulmonary-breathing easy, unlabored, no respiratory distress GI-abdomen is soft, nontender, nondistended Musculoskeletal-able to move all 4 extremities spontaneously Skin is warm and dry Neck: Other: Temporary dialysis catheter in place Objective Data Active Medications Acetaminophen (Acetaminophen 325 Mg Tablet) 650 mg PO Q6H PRN PRN Reason: Fever, Headache, Pain 1-3 Last Admin: 02/18/24 03:41 Dose: 650 mg Documented By: ROCÍO Calcium Carbonate (Calcium Carbonate 750 Mg Tab.Chew) 750 mg PO Q6H PRN PRN Reason: Heartburn Last Admin: 02/19/24 17:52 Dose: 750 mg Documented By: GLENNY Fidaxomicin (Fidaxomicin 200 Mg Tablet) 200 mg PO Q12H [facility] Stop: 02/27/24 15:59 Last Admin: 02/20/24 04:02 Dose: 200 mg Documented By: ROCÍO Heparin Sodium (Porcine) (Heparin Sodium,Porcine 5,000 Unit/Ml Vial) 5,000 unit SUBCUT Q8H [facility] Last Admin: 02/20/24 09:12 Dose: Not Given Documented By: GLENNY Non-Admin Reason: pleasing from temporary dialysis cath site Ceftriaxone Sodium 2 gm/ (Sodium Chloride) 50 mls @ 100 mls/hr IV Q24H [facility] Last Infusion: 02/19/24 15:30 Dose: Infused Documented By: GLENNY Magnesium Oxide (Magnesium Oxide 400 Mg Tablet) 400 mg PO BID [facility] Last Admin: 02/20/24 09:18 Dose: 400 mg Documented By: GLENNY Melatonin (Melatonin 3 Mg Tablet) 6 mg PO BEDTIME PRN PRN Reason: Insomnia Metronidazole (Metronidazole 500 Mg Tablet) 500 mg PO Q8H [facility] Ondansetron HCl (Ondansetron Hcl 4 Mg/2 Ml Vial) 4 mg IVPUSH Q8H PRN PRN Reason: Nausea and Vomiting Sodium Chloride (0.9 % Sodium Chloride Flush 3 Ml Syringe) 3 ml IVFLUSH QSHIFT [facility] Last Admin: 02/20/24 09:18 Dose: 3 ml Documented By: GLENNY Labs 02/20/24 06:04 02/20/24 07:40 Labs: Laboratory Results - last 24 hr 02/18/24 02/20/24 02/20/24 23:34 06:04 07:40 Absolute Neuts (auto) 4.6 Hold Purple Top SEE NOTE SEE NOTE Anion Gap 17 Estim Creat Clear Calc 24.0 Estimated GFR 14 Random Glucose 102 Calcium 8.8 Magnesium 1.8 Microbiology Microbiology Results: Microbiology 02/18/24 08:03 Blood Culture - Preliminary Blood - Venous No growth after 48 hours. 02/18/24 08:04 Blood Culture - Preliminary Blood - Venous No growth after 48 hours. Assessment and Plan (1) C. difficile colitis: Status: Acute (2) Acute renal failure: Status: Acute Plan This is a 44 year old man w/ PMHx significant for prior hospitalization due to AYSE and diarrhea presents to the hospital with diarrhea now with worsening renal function Acute kidney injury/ATN Creatinine trending down Temporary dialysis catheter placed February 17, no indication for dialysis today Total CK>33. Avoid nephrotoxic agents s/p bicarb drip sepsis due to Cdiff colitis, salmonella fever, tachycardia resolved; white count resolved Continue contact precautions. C diff PCR positive, toxin negative but treat given symptoms Continue fidaxomicin, IV Flagyl for C diff GI panel >salmonella positive-added ceftriaxone 2 g daily. plan for ID following blood cultures negative to date mild Hyponatremia levels stable Hypokalemia Due to diarrhea. improving resolved with replacement High anion gap metabolic acidosis AG closed s/p bicarb drip Bicarb improved to 20 Abnormal abdomen and pelvis CT scan Proctitis, inflammation, IBD vs neoplasm, chronic or prior colitis. Continue empiric IV antibiotic therapy with ceftriaxone and Flagyl. seen by GI - recommend short outpatient follow-up colonoscopy Essential hypertension. Hold amlodipine due to soft BP. Code status: Full DVT prophylaxis: Heparin Requires ongoing inpatient hospitalization for AYSE possibly requiring dialysis and diarrhea therapy with IV fluids and evaluation by different subspecialties. Patient also will need close monitoring of blood workup and vital signs. Quality Stroke Does the patient have a stroke diagnosis?: No VTE Prior VTE?: No VTE Risk Level:: Medical - moderate - high VTE Device Contraindication: Treatment Not Indicated VTE Drug Contraindication: N/A - Med Ordered
[2024-02-20] MEDS: cefTRIAXone sodium 2 GM in 0.9 % Sodium Chloride 50 ML IV (14:03)
[2024-02-20] MEDS: metroNIDAZOLE 500 MG TABLET PO (16:02)
[2024-02-21] MEDS: Heparin Sodium,Porcine 5,000 UNIT/ML VIAL 5000 UNIT SUBCUT ×3 (00:34→16:59)
[2024-02-21] MEDS: metroNIDAZOLE 500 MG TABLET PO ×3 (00:35→16:59)
[2024-02-21 03:53] VITALS: BP 115/70; PULSE 69; RESP 18; TEMP 37; O2SAT 97
[2024-02-21] MEDS: Fidaxomicin 200 MG TABLET PO ×2 (03:55→16:59)
[2024-02-21 07:04] VITALS: BP 117/70; PULSE 78; RESP 16; TEMP 36.6; O2SAT 97
[2024-02-21 07:13] LABS: Anion Gap 18 (12-20); Blood Urea Nitrogen 33 mg/dL (9-16); Calcium 9.4 mg/dL (8.4-10.2); Carbon Dioxide 19 mmol/L (22-29); Chloride 102 mmol/L (96-108); Creatinine Clr Calc Pharmacy 38.5; Estimated Glomerular Filt Rate 25; Glucose Random 122 mg/dL (60-115); Potassium 3.4 mmol/L (3.3-5.1); Sodium 136 mmol/L (135-145)
[2024-02-21] MEDS: 0.9 % Sodium Chloride Flush 3 ML SYRINGE IVFLUSH ×3 (07:25→20:00)
[2024-02-21] MEDS: Magnesium Oxide 400 MG TABLET PO ×2 (07:25→20:00)
--- NOTE | 2024-02-21 09:42 | P.PNIM_ITS ---
Subjective Subjective Date of Service: 02/21/24 Interval History: Seen and examined this morning Follow-up for diarrhea, renal failure Diarrhea improved, no abdominal pain No overnight events Review of Systems Review of Systems: Yes all other systems are reviewed and are negative Constitutional Constitutional: Denies fever(s) Gastrointestinal Gastrointestinal: Denies abdominal pain and Denies diarrhea Physical Exam 2 Vital Signs: Vital Signs: Last Vital Signs Temp 97.8 F 02/21/24 07:04 Pulse 78 02/21/24 07:04 Resp 16 02/21/24 07:04 BP 117/70 02/21/24 07:04 Pulse Ox 97 02/21/24 07:04 O2 Del Method Room Air 02/21/24 07:04 BMI result Body Mass Index 34.2 Const: Other: Constitutional-cooperative, comfortable, no acute distress. awake, alert Neck: Other: Temporary dialysis catheter in place Resp: Effort & Inspection: normal respiratory effort, able to speak in complete sentences, no respiratory distress and no use of accessory muscles GI: Inspection: No distended Palpation (GI): Soft to palpation and nontender Extrem: General: Yes no pedal edema Objective Data Active Medications Acetaminophen (Acetaminophen 325 Mg Tablet) 650 mg PO Q6H PRN PRN Reason: Fever, Headache, Pain 1-3 Last Admin: 02/18/24 03:41 Dose: 650 mg Documented By: ROCÍO Calcium Carbonate (Calcium Carbonate 750 Mg Tab.Chew) 750 mg PO Q6H PRN PRN Reason: Heartburn Last Admin: 02/19/24 17:52 Dose: 750 mg Documented By: GLENNY Fidaxomicin (Fidaxomicin 200 Mg Tablet) 200 mg PO Q12H [facility] Stop: 02/27/24 15:59 Last Admin: 02/21/24 03:55 Dose: 200 mg Documented By: ROCÍO Heparin Sodium (Porcine) (Heparin Sodium,Porcine 5,000 Unit/Ml Vial) 5,000 unit SUBCUT Q8H [facility] Last Admin: 02/21/24 07:24 Dose: 5,000 unit Documented By: GAEL Ceftriaxone Sodium 2 gm/ (Sodium Chloride) 50 mls @ 100 mls/hr IV Q24H [facility] Last Infusion: 02/20/24 16:03 Dose: Infused Documented By: YURI Magnesium Oxide (Magnesium Oxide 400 Mg Tablet) 400 mg PO BID [facility] Last Admin: 02/21/24 07:25 Dose: 400 mg Documented By: GAEL Melatonin (Melatonin 3 Mg Tablet) 6 mg PO BEDTIME PRN PRN Reason: Insomnia Metronidazole (Metronidazole 500 Mg Tablet) 500 mg PO Q8H [facility] Last Admin: 02/21/24 07:25 Dose: 500 mg Documented By: GAEL Ondansetron HCl (Ondansetron Hcl 4 Mg/2 Ml Vial) 4 mg IVPUSH Q8H PRN PRN Reason: Nausea and Vomiting Sodium Chloride (0.9 % Sodium Chloride Flush 3 Ml Syringe) 3 ml IVFLUSH QSHIFT [facility] Last Admin: 02/21/24 07:25 Dose: 3 ml Documented By: GAEL Labs 02/20/24 06:04 02/21/24 06:24 Labs: Laboratory Results - last 24 hr 02/21/24 06:24 Hold Purple Top SEE NOTE Anion Gap 18 Estim Creat Clear Calc 38.5 Estimated GFR 25 Random Glucose 122 H Calcium 9.4 D Microbiology Microbiology Results: Microbiology 02/18/24 08:03 Blood Culture - Preliminary Blood - Venous No growth after 48 hours. 02/18/24 08:04 Blood Culture - Preliminary Blood - Venous No growth after 48 hours. Assessment and Plan (1) C. difficile colitis: Status: Acute (2) Acute renal failure: Status: Acute Plan This is a 44 year old man w/ PMHx significant for prior hospitalization due to AYSE and diarrhea presents to the hospital with diarrhea now with worsening renal function Acute kidney injury/ATN Creatinine trending down, 2.80 this am Temporary dialysis catheter placed February 17, no indication for dialysis today. likely remove thursday Total CK>33. Avoid nephrotoxic agents s/p bicarb drip sepsis due to Cdiff colitis, salmonella fever, tachycardia resolved; white count resolved Continue contact precautions. C diff PCR positive, toxin negative but treat given symptoms Continue fidaxomicin (end date 02/26), IV Flagyl for C diff GI panel >salmonella positive-added ceftriaxone 2 g daily. plan for 14 days total, transition to ceftin on discharge ID following blood cultures negative to date mild Hyponatremia resolved Hypokalemia resolved with replacement High anion gap metabolic acidosis AG closed s/p bicarb drip Bicarb improving Abnormal abdomen and pelvis CT scan Proctitis, inflammation, IBD vs neoplasm, chronic or prior colitis. Continue empiric IV antibiotic therapy with ceftriaxone and Flagyl. seen by GI - recommend short outpatient follow-up colonoscopy Essential hypertension. Hold amlodipine due to soft BP. Code status: Full DVT prophylaxis: Heparin Requires ongoing inpatient hospitalization for AYSE possibly requiring dialysis and diarrhea therapy with IV fluids and evaluation by different subspecialties. Patient also will need close monitoring of blood workup and vital signs. Quality Stroke Does the patient have a stroke diagnosis?: No VTE Prior VTE?: No VTE Risk Level:: Medical - moderate - high VTE Device Contraindication: Treatment Not Indicated VTE Drug Contraindication: N/A - Med Ordered
[2024-02-21 10:52] VITALS: BP 143/81; PULSE 64; RESP 16; TEMP 36.6; O2SAT 97
[2024-02-21] MEDS: cefTRIAXone sodium 2 GM in 0.9 % Sodium Chloride 50 ML IV (11:22)
[2024-02-21 16:00] VITALS: BP 123/68; PULSE 79; RESP 20; TEMP 36.8; O2SAT 96
[2024-02-21] MEDS: Calcium Carbonate 750 MG TAB.CHEW PO (18:44)
[2024-02-21 19:50] VITALS: BP 117/66; PULSE 68; RESP 16; TEMP 37; O2SAT 96
[2024-02-21 23:27] VITALS: BP 109/61; PULSE 79; RESP 16; TEMP 37.1; O2SAT 95
[2024-02-22] MEDS: Heparin Sodium,Porcine 5,000 UNIT/ML VIAL 5000 UNIT SUBCUT (00:21)
[2024-02-22] MEDS: metroNIDAZOLE 500 MG TABLET PO ×2 (00:21→08:41)
[2024-02-22 03:02] VITALS: BP 124/69; PULSE 69; RESP 16; TEMP 37; O2SAT 95
[2024-02-22] MEDS: Fidaxomicin 200 MG TABLET PO (03:04)
[2024-02-22 07:04] LABS: Anion Gap 15 (12-20); Blood Urea Nitrogen 28 mg/dL (9-16); Calcium 9.5 mg/dL (8.4-10.2); Carbon Dioxide 24 mmol/L (22-29); Chloride 102 mmol/L (96-108); Creatinine Clr Calc Pharmacy 51.4; Estimated Glomerular Filt Rate 34; Glucose Random 102 mg/dL (60-115); Potassium 3.6 mmol/L (3.3-5.1); Sodium 137 mmol/L (135-145)
[2024-02-22 07:25] VITALS: BP 124/78; PULSE 79; RESP 18; TEMP 36.1; O2SAT 97
[2024-02-22] MEDS: Magnesium Oxide 400 MG TABLET PO (08:41)
[2024-02-22] MEDS: 0.9 % Sodium Chloride Flush 3 ML SYRINGE IVFLUSH (08:43)
--- NOTE | 2024-02-22 09:07 | PM.EVENT ---
Event Note Date of Service: 02/22/24 Event Note: Right IJ Jayro removed in IR nursing. Pressure held until hemostasis assured. Dry dressing applied. No immediate complications Favio MENDOZA Interventional Radiology Time Spent With Patient Time: Total time managing care of this patient today ____ minutes.
[2024-02-22 10:58] VITALS: BP 127/78; PULSE 86; RESP 18; TEMP 36.4; O2SAT 94
--- NOTE | 2024-02-22 11:00 | P.DS_ITS ---
DS: Providers Provider Date of Service: 02/22/24 Date of admission: 02/17/24 03:28 Primary care physician: PRISCILLA MUNIZ Consults: 02/17/24 03:37 Consult to Nephrology Routine Consulting Provider: [facility] Reason for consultation: AYSE Has provider been notified: No 02/17/24 06:21 Consult to Gastroenterology Routine Consulting Provider: Nura Kern Reason for consultation: Abnormal abdominal CT scan, ?neoplasm Has provider been notified: No 02/17/24 06:23 Consult to Infectious Diseases Routine Consulting Provider: [facility] Reason for consultation: C. diff Has provider been notified: No DS: Diagnosis Discharge Diagnosis (1) C. difficile colitis: Status: Acute (2) Acute renal failure: Status: Acute DS: Summary Hospital Course Hospital Course: History and physical as per admitting provider. Osiel Layton is a 44 years old man with past medical history significant for essential hypertension on amlodip ine presents to the emergency department complaining of multiple events of nonbloody diarrhea that started Thursday known associated with crampy generalized abdominal pain. Denied vomiting. He also complained of fevers, mild head and generalized malaise. He also denied pain with urination but has been urinating less quantity. He mentioned that about early January of this he took a course of Augmentin X7 days for tooth infection. On March 2023, he was hospitalized with similar symptoms (diarrhea X1 week). At that time he also developed AYSE and was taking lisinopril. He received total 4 L of IV fluids, was subsequently placed on a bicarb drip and evaluated by Nephrology Service. His abdominal pelvis CT scan at that time showed likely enteritis viral versus bacterial infection. In ED today, he was found to have fever of 100.1 and sinus tachycardia. There is no hypotension. Blood workup was remarkable for leukocytosis of 15.4. Hemoglobin and platelets are normal. There is no lactic acidosis. Hyponatremia and hypokalemia resolved. Bicarb is 12. Creatinine is 3.33 Venous pH is normal. LFTs are normal except for slight elevation of alk-phos. Troponin is negative. C diff gene PCR positive and C diff toxin a and B negative toxin. Abdomen pelvis CT scan showed findings that could be related to sequela of proctitis, infection, inflammation, IBD Crohn's versus neoplasm, chronic or prior colitis, nonobstructive renal calculi on the left side without with a hydronephrosis. ED tx: NS 2 L bolus, Imodium 4 mg p.o., acetaminophen 975 mg p.o., potassium 60 mEq p.o., Levaquin 500 mg IV, Flagyl 500 mg IV, vancomycin 125 mg PO. 44-year-old man treated for AYSE/ATN, sepsis, C diff colitis, Salmonella, high anion gap metabolic acidosis. Patient had initially presented with diarrhea which likely led to ATN. Creatinine peaked at 7.42, a temporary dialysis catheter was placed with plans for hemodialysis if his creatinine did not improve. Fortunately patient's creatinine trended down significantly and he did not require dialysis. His dialysis catheter was removed 02/22/2024. He was treated with IV fluids and creatinine came down to 2.10. The diarrhea was likely caused from the C diff and Salmonella (HIV neg). Was treated with fidaxomicin that was started on 02/17/2024. We will need to complete a total of 10 days of treatment will convert to vancomycin 125 mg q.i.d. for the remaining portion of treatment. He was also treated with Rocephin 2 g daily, started on 02/18/2024, for the salmonella and will transition to Ceftin for total of 14 days Diet was advanced during hospitalization patient has been able to eat solid foods without incident. He did receive IV bicarb for the metabolic acidosis again likely secondary to dehydration from GI losses. Patient at this point is doing well and is agreeable to discharge home. Hypertension. Was on amlodipine prior to admission but blood pressures have been stable with systolic blood pressure in the 120's. Will discontinue amlodipine and he is to follow up with primary care provider to determine whether this medication needs to be restarted or whether he can stay off of it. Time Attestation Discharge Coordination Time (in mins): 50 Quality: Safe Use of Opioids Does Pt have an Active Cancer Diagnosis on the Problem List?: No Quality: Stroke Does the patient have a stroke diagnosis?: No Physical Exam Vital Signs: Vital Signs: Last Vital Signs Temp 97.5 F 02/22/24 10:58 Pulse 86 02/22/24 10:58 Resp 18 02/22/24 10:58 BP 127/78 02/22/24 10:58 Pulse Ox 94 02/22/24 10:58 O2 Del Method Room Air 02/22/24 10:58 BMI result Body Mass Index 34.2 Appearing in no acute distress head is normocephalic atraumatic eyes pupils are PERRLA sclera is anicteric mouth throat mucous membranes are intact and moist neck is supple no lymphadenopathy, no JVD noted lung sounds are clear to auscultation heart regular rate rhythm, clear S1, S2 positive bowel sounds, abdomen is soft, nontender neuro patient is alert x3, no focal deficits DS: Data Data Completed and Pending Labs on day of discharge: Laboratory Results - last 24 hr 02/22/24 05:59 Hold Purple Top SEE NOTE Sodium 137 Potassium 3.6 Chloride 102 Carbon Dioxide 24 Anion Gap 15 BUN 28 H Creatinine 2.10 H Estim Creat Clear Calc 51.4 Estimated GFR 34 Random Glucose 102 Calcium 9.5 Preliminary micro results at discharge 02/18/24 08:03 Blood Culture - Preliminary Blood - Venous No growth after 48 hours. 02/18/24 08:04 Blood Culture - Preliminary Blood - Venous No growth after 48 hours. Discharge Plan Discharge Anticipated Discharge Date/Time: 02/22/24 10:55 Patient Disposition: Home, Self-Care Discharge Diagnosis: C diff colitis Salmonella AYSE Referrals: Efrain Avalos MD [Physician] - 1 Week PRISCILLA MUNIZ [Primary Care Provider] - 1 Week Discharge Medications: New vancomycin 125 mg capsule 125 mg PO QID Qty: 20 0RF cefuroxime axetil 500 mg tablet 500 mg PO BID Qty: 18 0RF Continued magnesium oxide 400 mg magnesium capsule 400 mg PO BID Qty: 10 0RF Discontinued amlodipine 10 mg tablet 10 mg PO DAILY Discharge Orders: Discharge Order (Routine); Ordered 02/22/24 Ordered By: Kary Wiley Diet: Advance to usual diet Activity on Discharge: As tolerated Stand Alone Forms: Patient Portal Discharge page Print Language: Kyrgyz Other Ambulatory Orders: Basic Metabolic Panel (Routine) Timeframe: 3 Days Facility: [facility] - Location: Laboratory Ordered By: Kary Wiley Care Plan Goals: Check labs in 3 days Your blood pressure has been very stable while in the hospital, your amlodipine has been stopped, follow-up with primary care provider to determine whether this medication needs to be restarted at some point or you can remain off of it. Health Concerns: C diff colitis Salmonella AYSE Plan of Treatment: Follow-up with primary care provider as needed Follow-up with Nephrology as needed Assessment: See discharge summary
--- NOTE | 2024-02-22 11:36 | PM.PNNEP ---
Subjective Subjective Date of Service: 02/22/24 Interval history: Seen and examined this morning ; No overnight events . Feels better Physical Exam Vital Signs: Vital Signs: Last Vital Signs Temp 97.5 F 02/22/24 10:58 Pulse 86 02/22/24 10:58 Resp 18 02/22/24 10:58 BP 127/78 02/22/24 10:58 Pulse Ox 94 02/22/24 10:58 O2 Del Method Room Air 02/22/24 10:58 BMI result Body Mass Index 34.2 Const: General: comfortable and no acute distress Orientation/consciousness: patient oriented x3 HEENT: Head: Yes normocephalic Mouth: Normal oral and palatal mucosa present Eyes: EOM: EOMs intact bilaterally Neck: Neck: Yes supple Resp: Auscultation: clear to auscultation bilaterally Cardio: Jugular venous distension: no JVD Rate: regular rate GI: Palpation (GI): Soft to palpation Auscultation: normal bowel sounds : General: Yes no CVA tenderness Back/Spine/Pelvis: Back: no CVA tenderness Skin: General skin exam: no rashes or lesions noted Neuro: General: patient oriented x3 and moves all extremities Extrem: General: Yes no pedal edema Objective Data Labs 02/20/24 06:04 02/22/24 05:59 Labs: Laboratory Results - last 24 hr 02/22/24 05:59 Hold Purple Top SEE NOTE Sodium 137 Potassium 3.6 Chloride 102 Carbon Dioxide 24 Anion Gap 15 BUN 28 H Creatinine 2.10 H Estim Creat Clear Calc 51.4 Estimated GFR 34 Random Glucose 102 Calcium 9.5 Microbiology Microbiology Results: Microbiology 02/18/24 08:03 Blood - Venous Blood Culture - Preliminary No growth after 48 hours. 02/18/24 08:04 Blood - Venous Blood Culture - Preliminary No growth after 48 hours. 02/16/24 Unknown Urine clean catch - Urine smiley top Urine Culture - Final Procedures Date of Service Date of Service: 02/22/24 Assessment & Plan Assessment and plan (1) Acute renal failure: Status: Acute Plan Bruce likely due to tubular injury; No obstruction by imaging was profoundly acidotic- had been on NaHCO3 drip- resolved Unlikely AIN/GN; urine output improved C/W rest of current supportive management Needs outpatient F/U with [facility] in 2-3 weeks ( [place] office [phone] ) Progress Note: Quality Stroke Does the patient have a stroke diagnosis?: No
--- NOTE | 2024-02-22 11:57 | MHC.CM.PN ---
Patient has been medically cleared for dc to home today, self care.
[2024-02-24 08:54] LABS: Complement C3 199 mg/dL (82-185)
== END 2024-02-22 14:13 | disposition home or self-care (01) | DRG 720 ==
LOC: HO.ED 02-17 01:01 → HO.EDOVER 02-17 03:40 → HO.IMC 02-17 18:01
PROVIDERS: Internal Medicine Nephrology; Physician Assistant; Physician Assistant Medical; Radiology Vascular & Interventional Radiology; Admitting Provider Internal Medicine; Emergency Provider Emergency Medicine; PCP Physician Assistant Medical; Visit Provider Nurse Practitioner Acute Care
PROC: 05HM33Z Insertion of Infusion Device into Right Internal Jugular Vein, Percutaneous Approach (ICD-10-PCS; principal; 2024-02-18 14:30)
DX: A41.4 Sepsis due to anaerobes (principal); N17.0 Acute kidney failure with tubular necrosis; A04.72 Enterocolitis due to Clostridium difficile, not specified as recurrent; E87.20 Acidosis, unspecified; E87.3 Alkalosis; E87.1 Hypo-osmolality and hyponatremia; A02.0 Salmonella enteritis; E86.0 Dehydration; E87.6 Hypokalemia; F17.210 Nicotine dependence, cigarettes, uncomplicated; Z71.6 Tobacco abuse counseling; Z20.822 Contact with and (suspected) exposure to COVID-19; I10 Essential (primary) hypertension
CPT/HCPCS: 0241U; 36415; 36556; 74176; 80048; 80053; 80307; 81001; 82550; 82570; 82803; 83605; 83735; 84100; 84132; 84156; 84300; 84484; 85025; 85048; 85610; 85730; 85999; 86160; 87040; 87086; 87324; 87389; 87493; 87507; 93005; 99285; C1769; J0696; J1644; J1836; J1956; J3475; J3480

== ENCOUNTER → 2024-02-16 16:13 | Outpatient (BNV) | payer OTHER, SELFPAY | PROVIDERS: Admitting Provider Internal Medicine; Emergency Provider Emergency Medicine; PCP Physician Assistant Medical; Visit Provider Internal Medicine Cardiovascular Disease | DX: R00.0 Tachycardia, unspecified (principal); R94.31 Abnormal electrocardiogram [ECG] [EKG] | CPT/HCPCS: 93010 ==

== ENCOUNTER 2024-02-17 03:28 | Outpatient (BNV) | payer OTHER, SELFPAY | END 2024-02-18 15:30 | PROVIDERS: Admitting Provider Internal Medicine; Emergency Provider Emergency Medicine; PCP Physician Assistant Medical; Visit Provider Physician Assistant Surgical | DX: N17.9 Acute kidney failure, unspecified (principal) | CPT/HCPCS: 36556; 76937 ==

== ENCOUNTER → 2024-02-17 03:28 | Outpatient (BNV) | payer OTHER, SELFPAY | PROVIDERS: Admitting Provider Internal Medicine; Emergency Provider Emergency Medicine; PCP Physician Assistant Medical; Visit Provider Internal Medicine | DX: A04.72 Enterocolitis due to Clostridium difficile, not specified as recurrent (principal); N17.9 Acute kidney failure, unspecified | CPT/HCPCS: 99223; 99232; 99233; 99239; 99499 ==

== ENCOUNTER → 2024-02-17 03:28 | Outpatient (BNV) | payer OTHER, SELFPAY | PROVIDERS: Admitting Provider Internal Medicine; Emergency Provider Emergency Medicine; PCP Physician Assistant Medical; Visit Provider Internal Medicine Nephrology | DX: N17.9 Acute kidney failure, unspecified (principal) | CPT/HCPCS: 99223; 99232 ==

== ENCOUNTER → 2024-02-17 03:28 | Outpatient (BNV) | payer OTHER, SELFPAY | PROVIDERS: Admitting Provider Internal Medicine; Emergency Provider Emergency Medicine; PCP Physician Assistant Medical; Visit Provider Internal Medicine | DX: E86.0 Dehydration (principal); A04.72 Enterocolitis due to Clostridium difficile, not specified as recurrent; N17.9 Acute kidney failure, unspecified | CPT/HCPCS: 99222; 99499 ==

== ENCOUNTER 2024-03-04 11:06 | Outpatient (AMB) | payer OTHER, SELFPAY ==
[2024-03-04 11:03] VITALS: BP 146/76; PULSE 101; O2SAT 98; BMI 33.2
--- NOTE | 2024-03-04 11:03 | HO.NEPHOV_ITS ---
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 He was also oliguric. He mentioned that about early January he took a course of Augmentin X7 days for tooth infection. In ER ,he was found to have fever of 100.1, with sinus tachycardia without any hypotension. Blood workup was remarkable for leukocytosis of 15.4, Bicarb is 12. Creatinine is 3.33 . Troponin was negative. C diff gene PCR positive and C diff toxin a and B negative toxin.He was admitted for further management.Nephrology consulted to assist in his clinical care during his current hospital stay During hospitalization remained oliguric and creatinine peaked at 7.1. A temporary dialysis catheter was inserted in preparation for dialysis. However renal function gradually improved and he did not need dialysis. At the time of discharge creatinine was 2.1 mg/dL. He was sent home on p.o. vancomycin. During workup he had about 1 g of proteinuria. Serological workup was essentially unremarkable. He had a similar episode of acute kidney injury back in 03/24/2023. Osiel tells me that during his childhood he was told that he had some protein in the urine. He did not have any further workup. During the recent visit his blood pressure was normal and therefore amlodipine was discontinued by his PCP COUNTS INCLUDE 234 BEDS AT THE [facility] Medical History Anxiety Family History Mother No problems noted. Father No problems noted. 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 [employer] Physical Exam Vital Signs: Last Vital Signs Pulse 101 H 03/04/24 11:03 BP 146/76 H 03/04/24 11:03 Pulse Ox 98 03/04/24 11:03 Oxygen Delivery Method Room Air 03/04/24 11:03 BMI result Body Mass Index 33.2 Const General: comfortable Nutritional Appearance: well nourished Orientation/consciousness: patient oriented x3 HEENT Head: No normal to inspection Mouth: moist mucous membranes Neck Neck: Yes supple and Yes no JVD Resp Auscultation: clear to auscultation bilaterally, no rales and rub present Cardio Jugular venous distension: no JVD Palpation: no palpable S3 and no palpable S4 Heart sounds: no rubs GI Palpation (GI): Soft to palpation and nontender Percussion: No Fluid wave present General: Yes no CVA tenderness Back/Spine/Pelvis Back: no CVA tenderness Skin General skin exam: no rashes or lesions noted Neuro General: patient oriented x3 Extrem General: Yes no pedal edema and No clubbing Results Reviewed Results Reviewed: As of Feb 25 2024 serum creatinine was 1.3 mg/dL Nephrology Results: Hgb 14.1 g/dl (14.0-18.0) 02/18/24 WBC 7.2 X10*3/uL (4.8-10.8) 02/20/24 Plt Count 231 X10*3/uL (160-400) 02/18/24 Sodium 137 mmol/L (135-145) 02/22/24 Potassium 3.6 mmol/L (3.3-5.1) 02/22/24 Chloride 102 mmol/L (96-108) 02/22/24 Carbon Dioxide 24 mmol/L (22-29) 02/22/24 BUN 28 mg/dL (9-16) H 02/22/24 Creatinine 2.10 mg/dL (0.5-1.4) H 02/22/24 Calcium 9.5 mg/dL (8.4-10.2) 02/22/24 Phosphorus 6.2 mg/dL (2.7-4.5) H 02/17/24 Urine Protein >=1000 (4+) mg/dL (Neg-Trace) H 4 Urine Creatinine 179.52 mg/dL 02/18/24 Protein/Creatinin Ratio 1.01 (<0.2) H 02/18/24 Assessment & Plan Assessment & Plan (1) AYSE (acute kidney injury): Code(s): N17.9 - Acute kidney failure, unspecified Category: Medical (2) Hypomagnesemia: Code(s): E83.42 - Hypomagnesemia Category: Medical (3) HTN (hypertension): Code(s): I10 - Essential (primary) hypertension Category: Medical Plan Osiel is a 44-year-old man with a history of hypertension who sustained acute kidney injury in a setting of C diff. Acute kidney injury was most likely due to hypoperfusion leading to tubular injury from severe dehydration. However he did have about a g of proteinuria which needs further evaluation. The serological evaluation during hospitalization was unremarkable. Renal function has significantly improved. Creatinine is back to 1.3. I will recheck the renal panel along with urine protein creatinine ratio. If he has significant proteinuria he would require further workup. Hypertension. The office today blood pressure is slightly elevated however he tells me that his blood pressure has been well controlled until recently. I have encouraged him to monitor his blood pressure at home and to call me if the systolic blood pressure stays above 140 mm Hg in which case he will require LS low-dose of amlodipine probably 2.5 mg. Encouraged him to stand low-sodium diet Weight loss will help. Orders: Orders Phosphorus 1 Day E83.42 - Hypomagnesemia, N17.9 - Acute kidney failure, unspecified UA and rflx microscopic 1 Day N17.9 - Acute kidney failure, unspecified Total Protein Urine Random 1 Day N17.9 - Acute kidney failure, unspecified Basic Metabolic Panel 1 Day E83.42 - Hypomagnesemia, N17.9 - Acute kidney failure, unspecified Magnesium 1 Day E83.42 - Hypomagnesemia, N17.9 - Acute kidney failure, unspecified Creatinine Urine 1 Day N17.9 - Acute kidney failure, unspecified Medications: Discontinued cefuroxime axetil Discontinued Reason: Patient no longer taking 500 mg PO BID 18 tabs 0RF A02.9 - Salmonella infection, unspecified vancomycin Discontinued Reason: Patient no longer taking 125 mg PO QID 20 caps 0RF A04.72 - Enterocolitis due to Clostridium difficile, not specified as recurrent Coding Level of Care Code Est Pt Level 4 (46058) Diagnoses AYSE (acute kidney injury) N17.9 Hypomagnesemia E83.42 HTN (hypertension) I10
== END 2024-03-04 11:24 | disposition home or self-care (01) ==
PROVIDERS: PCP Physician Assistant Medical; Visit Provider Internal Medicine Hypertension Specialist
DX: N17.9 Acute kidney failure, unspecified (principal); E83.42 Hypomagnesemia; I10 Essential (primary) hypertension
CPT/HCPCS: 99214

== ENCOUNTER → 2024-03-04 11:06 | Outpatient (BNVA) | payer OTHER, SELFPAY | PROVIDERS: PCP Physician Assistant Medical; Visit Provider Internal Medicine Hypertension Specialist ==

== ENCOUNTER 2024-03-17 15:49 | Outpatient (AMB) | payer OTHER, SELFPAY ==
[2024-03-17 15:44] VITALS: BP 160/96; PULSE 99; O2SAT 98; BMI 32.5
--- NOTE | 2024-03-17 15:44 | HO.NEPHOV_ITS ---
Vital Signs 03/17/24 15:44 Height 5 ft 9 in Weight 220 lb BMI 32.5 BP 160/96 H Blood Pressure Location Lt brachial Position Sitting Pulse 99 Pulse Source Pulse Oximeter Pulse Oximetry (%) 98 Oxygen Delivery Method Room Air Intake Visit Reasons: 3 wks follow up/ LVM Tactical Deception Plans Officer Required: No Accompanied by: Self / Same As Patient Allergies No Known Allergies Allergy (Verified 03/17/24 15:45) HPI Comments Details: 44 years old man with essential hypertension on amlodipine presents to the emergency department complaining of multiple events of nonbloody diarrhea associated with crampy generalized abdominal pain without any vomiting but with associated fevers, mild head and generalized malaise. He was also oliguric. He mentioned that about early January he took a course of Augmentin X7 days for tooth infection. In ER ,he was found to have fever of 100.1, with sinus tachycardia without any hypotension. Blood workup was remarkable for leukocytosis of 15.4, Bicarb is 12. Creatinine is 3.33 . Troponin was negative. C diff gene PCR positive and C diff toxin a and B negative toxin.He was admitted for further management.Nephrology consulted to assist in his clinical care during his current hospital stay During hospitalization remained oliguric and creatinine peaked at 7.1. A temporary dialysis catheter was inserted in preparation for dialysis. However renal function gradually improved and he did not need dialysis. At the time of discharge creatinine was 2.1 mg/dL. He was sent home on p.o. vancomycin. During workup he had about 1 g of proteinuria. Serological workup was essentially unremarkable. He had a similar episode of acute kidney injury back in 03/24/2023. Osiel tells me that during his childhood he was told that he had some protein in the urine. He did not have any further workup. During the recent visit his blood pressure was normal and therefore amlodipine was discontinued by his PCP [facility] Medical History Anxiety Family History Mother No problems noted. Father No problems noted. 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 [employer] Physical Exam Vital Signs: Last Vital Signs Pulse 99 03/17/24 15:44 BP 160/96 H 03/17/24 15:44 Pulse Ox 98 03/17/24 15:44 Oxygen Delivery Method Room Air 03/17/24 15:44 BMI result Body Mass Index 32.5 Const General: comfortable; No acute distress Orientation/consciousness: patient oriented x3 Eyes General: appearance normal, both eyes and all related structures Visual Fernandes: normal visual fernandes by confrontation Neck Neck: Yes supple and Yes no JVD Resp Effort & Inspection: normal respiratory effort and respiratory effort not decreased Auscultation: rhonchi Cardio Palpation: no palpable S3 and no palpable S4 Heart sounds: no rubs GI Inspection: Yes normal to inspection Palpation (GI): Soft to palpation Percussion: Yes normal to percussion Auscultation: normal bowel sounds General: Yes no CVA tenderness Back/Spine/Pelvis Back: no CVA tenderness Skin General skin exam: no petechiae and no purpura Neuro General: patient oriented x3 and no focal motor deficits Extrem General: No clubbing and No edema Results Reviewed Nephrology Results: Hgb 14.1 g/dl (14.0-18.0) 02/18/24 WBC 7.2 X10*3/uL (4.8-10.8) 02/20/24 Plt Count 231 X10*3/uL (160-400) 02/18/24 Sodium 137 mmol/L (135-145) 02/22/24 Potassium 3.6 mmol/L (3.3-5.1) 02/22/24 Chloride 102 mmol/L (96-108) 02/22/24 Carbon Dioxide 24 mmol/L (22-29) 02/22/24 BUN 28 mg/dL (9-16) H 02/22/24 Creatinine 2.10 mg/dL (0.5-1.4) H 02/22/24 Calcium 9.5 mg/dL (8.4-10.2) 02/22/24 Phosphorus 6.2 mg/dL (2.7-4.5) H 02/17/24 Urine Protein >=1000 (4+) mg/dL (Neg-Trace) H 4 Urine Creatinine 179.52 mg/dL 02/18/24 Protein/Creatinin Ratio 1.01 (<0.2) H 02/18/24 Assessment & Plan Assessment & Plan (1) AYSE (acute kidney injury): Code(s): N17.9 - Acute kidney failure, unspecified Category: Medical (2) Hypomagnesemia: Code(s): E83.42 - Hypomagnesemia Category: Medical (3) HTN (hypertension): Code(s): I10 - Essential (primary) hypertension Category: Medical Plan Osiel is a 44-year-old man with a history of hypertension who sustained acute kidney injury in a setting of C diff. Acute kidney injury was most likely due to hypoperfusion leading to tubular injury from severe dehydration. However he did have about a g of proteinuria which needs further evaluation. The serological evaluation during hospitalization was unremarkable. Renal function has significantly improved. Creatinine is back to 1.3. I will recheck the renal panel along with urine protein creatinine ratio. If he has significant proteinuria he would require further workup. Hypertension. The office today blood pressure is slightly elevated however he tells me that his blood pressure has been well controlled until recently. I have encouraged him to monitor his blood pressure at home and to call me if the systolic blood pressure stays above 140 mm Hg in which case he will require LS low-dose of amlodipine probably 2.5 mg. Encouraged him to stand low-sodium diet Weight loss will help. Coding Level of Care Code Est Pt Level 3 (67138) Diagnoses AYSE (acute kidney injury) N17.9 Hypomagnesemia E83.42 HTN (hypertension) I10
== END 2024-03-17 16:10 | disposition home or self-care (01) ==
PROVIDERS: PCP Physician Assistant Medical; Visit Provider Internal Medicine Hypertension Specialist
DX: N17.9 Acute kidney failure, unspecified (principal); E83.42 Hypomagnesemia; I10 Essential (primary) hypertension
CPT/HCPCS: 99213

== ENCOUNTER → 2024-03-17 15:49 | Outpatient (BNVA) | payer OTHER, SELFPAY | PROVIDERS: PCP Physician Assistant Medical; Visit Provider Internal Medicine Hypertension Specialist ==

== ENCOUNTER → 2024-05-26 16:04 | Outpatient (BNVA) | payer OTHER, SELFPAY | PROVIDERS: PCP Physician Assistant Medical; Visit Provider Internal Medicine Hypertension Specialist ==

== ENCOUNTER 2024-05-26 16:05 | Outpatient (AMB) | payer OTHER, SELFPAY ==
[2024-05-26 16:05] VITALS: BP 128/82; BMI 32.5
--- NOTE | 2024-05-26 16:05 | HO.NEPHOV ---
Vital Signs 05/26/24 16:05 Height 5 ft 9 in Weight 220 lb BMI 32.5 BP 128/82 Blood Pressure Location Lt brachial Position Sitting Intake Visit Reasons: AYSE/ Conf Back Tender Cloth Printing Required: No Accompanied by: Self / Same As Patient Allergies No Known Allergies Allergy (Verified 05/26/24 16:05) HPI Comments Details: 44 years old man with essential hypertension on amlodipine presents to the emergency department complaining of multiple events of nonbloody diarrhea associated with crampy generalized abdominal pain without any vomiting but with associated fevers, mild head and generalized malaise. He was also oliguric. He mentioned that about early January he took a course of Augmentin X7 days for tooth infection. In ER ,he was found to have fever of 100.1, with sinus tachycardia without any hypotension. Blood workup was remarkable for leukocytosis of 15.4, Bicarb is 12. Creatinine is 3.33 . Troponin was negative. C diff gene PCR positive and C diff toxin a and B negative toxin.He was admitted for further management.Nephrology consulted to assist in his clinical care during his current hospital stay During hospitalization remained oliguric and creatinine peaked at 7.1. A temporary dialysis catheter was inserted in preparation for dialysis. However renal function gradually improved and he did not need dialysis. At the time of discharge creatinine was 2.1 mg/dL. He was sent home on p.o. vancomycin. During workup he had about 1 g of proteinuria. Serological workup was essentially unremarkable. He had a similar episode of acute kidney injury back in 03/24/2023. Osiel tells me that during his childhood he was told that he had some protein in the urine. He did not have any further workup. During the recent visit his blood pressure was normal and therefore amlodipine was discontinued by his PCP 05/26/2024. Taking visit due to COVID infection. Did not undergo workup as outlined. [facility] Medical History Anxiety Family History Mother No problems noted. Father No problems noted. 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 [employer] Physical Exam Vital Signs: Last Vital Signs BP 128/82 05/26/24 16:05 BMI result Body Mass Index 32.5 Results Reviewed Nephrology Results: Hgb 14.1 g/dl (14.0-18.0) 02/18/24 WBC 7.2 X10*3/uL (4.8-10.8) 02/20/24 Plt Count 231 X10*3/uL (160-400) 02/18/24 Sodium 137 mmol/L (135-145) 02/22/24 Potassium 3.6 mmol/L (3.3-5.1) 02/22/24 Chloride 102 mmol/L (96-108) 02/22/24 Carbon Dioxide 24 mmol/L (22-29) 02/22/24 BUN 28 mg/dL (9-16) H 02/22/24 Creatinine 2.10 mg/dL (0.5-1.4) H 02/22/24 Calcium 9.5 mg/dL (8.4-10.2) 02/22/24 Phosphorus 6.2 mg/dL (2.7-4.5) H 02/17/24 Urine Protein >=1000 (4+) mg/dL (Neg-Trace) H 02/16/24 Urine Creatinine 179.52 mg/dL 02/18/24 Protein/Creatinin Ratio 1.01 (<0.2) H 02/18/24 Assessment & Plan Assessment & Plan (1) Proteinuria: Code(s): R80.9 - Proteinuria, unspecified Category: Medical (2) AYSE (acute kidney injury): Code(s): N17.9 - Acute kidney failure, unspecified Category: Medical (3) Hypomagnesemia: Code(s): E83.42 - Hypomagnesemia Category: Medical (4) HTN (hypertension): Code(s): I10 - Essential (primary) hypertension Category: Medical Plan Osiel is a 44-year-old man with a history of hypertension who sustained acute kidney injury in a setting of C diff. Acute kidney injury was most likely due to hypoperfusion leading to tubular injury from severe dehydration. However he did have about a g of proteinuria which needs further evaluation. The serological evaluation during hospitalization was unremarkable. Renal function has significantly improved. Creatinine is back to 1.3. I will recheck the renal panel along with urine protein creatinine ratio. If he has significant proteinuria he would require further workup. Hypertension. The office today blood pressure is slightly elevated however he tells me that his blood pressure has been well controlled until recently. I have encouraged him to monitor his blood pressure at home and to call me if the systolic blood pressure stays above 140 mm Hg in which case he will require LS low-dose of amlodipine probably 2.5 mg. Encouraged him to stand low-sodium diet Weight loss will help. 05/26/2024. He had about a 1g of proteinuria. Workup initiated for proteinuria. This will be done 4 weeks from now since he has COVID infection at present. Orders: Orders UA and rflx microscopic 4 Weeks R80.9 - Proteinuria, unspecified Complement C4 4 Weeks R80.9 - Proteinuria, unspecified Basic Metabolic Panel 4 Weeks R80.9 - Proteinuria, unspecified Creatinine Urine 4 Weeks R80.9 - Proteinuria, unspecified Total Protein Urine Random 4 Weeks R80.9 - Proteinuria, unspecified Complement C3 4 Weeks R80.9 - Proteinuria, unspecified Coding Level of Care Code Tele New Pt Level 3 (89844) Diagnoses Proteinuria R80.9 AYSE (acute kidney injury) N17.9 Hypomagnesemia E83.42 HTN (hypertension) I10
== END 2024-05-26 16:24 | disposition home or self-care (01) ==
PROVIDERS: PCP Physician Assistant Medical; Visit Provider Internal Medicine Hypertension Specialist
DX: R80.9 Proteinuria, unspecified (principal); N17.9 Acute kidney failure, unspecified; E83.42 Hypomagnesemia; I10 Essential (primary) hypertension
CPT/HCPCS: 99213